=== PATIENT | female | born 1970 | race Caucasian/White ===

== ENCOUNTER 2018-08-20 03:38 | Inpatient (IN) | payer BC, SELFPAY ==
[2018-08-20] VITALS (21 sets, daily range): BP systolic 109–134; BP diastolic 63–84; PULSE 67–98; RESP 15–21; TEMP 36.4–36.9; O2SAT 95–98; BMI 39.1; BMI 38.2
--- NOTE | 2018-08-20 03:47 | EKG12_ITS ---
Test Reason : CP Blood Pressure : / mmHG Vent. Rate : 076 BPM Atrial Rate : 076 BPM P-R Int : 182 ms QRS Dur : 086 ms QT Int : 370 ms P-R-T Axes : 072 058 007 degrees QTc Int : 416 ms Normal sinus rhythm with sinus arrhythmia Nonspecific ST and T wave abnormality Abnormal ECG Confirmed by AKI OLIVARES, KATE ([id number]), content editor ISRAEL JIMENEZ ([id number]) on 08/22/2018 4:15:46 PM Referred By: RU Confirmed By:KATE PRABHAKAR MD
--- NOTE | 2018-08-20 03:47 | RAD_ITS ---
STUDY: X-RAY CHEST REASON FOR EXAM: Female, 48 years old. Chest pain TECHNIQUE: Single AP portable view of the chest. COMPARISON: None. FINDINGS: The lungs are clear and expanded. There is no demonstrated pleural abnormality. Normal size heart. Normal mediastinum and dulce. Normal visualized pulmonary arteries. Normal visualized aortic arch and descending thoracic aorta. Normal visualized thoracic spine. Normal visualized ribs, clavicles, and shoulders. There is no demonstrated abnormality of the visualized soft tissue structures of the upper abdomen. RAD/Chest 1 View (Portable) IMPRESSION: Normal x-ray examination of the chest. Electronically Signed: Darren Dorsey, at 4:12 EDT Tel , Service support ,
[2018-08-20] MEDS: Ipratropium/Albuterol Sulfate 3 ML AMPUL.NEB INHALATION (03:49)
[2018-08-20] MEDS: 0.9% Normal Saline 1,000 ML 150 ML IV (03:57)
[2018-08-20] MEDS: Aspirin 81 MG TAB.CHEW 324 MG PO (04:09)
[2018-08-20 04:12] LABS: Absolute Lymphocyte Count 2.71 X10^3/ul (0.83-4.51); Absolute Neutrophil Count 8.3 X10^3/uL (2.0-7.7); Basophil# 0.03 X10^3/uL; Basophil% 0.3 % (0-1); Eosinophil# 0.09 X10^3/uL; Eosinophils% 0.8 % (0-5); Hematocrit 47.1 % (37-47); Hemoglobin 16.6 g/dl (12.0-15.0); Lymphocyte # 2.71 X10^3/ul (4.0); Lymphocyte % 22.6 % (19-41); Mean Corp Hgb Conc 35.2 g/gl (32-36); Mean Corpuscular Volume 90.8 fL (81-99); Mean Platelet Vol. 10.6 fl (6.2-12.0); Monocyte# 0.78 X10^3/uL; Monocyte% 6.5 % (0-10); Neutrophil # 8.32 X10^3/uL (2.7-7.7); Neutrophil % 69.5 % (47-70); Platelet Count 335 K/mm3 (150-450); RBC Distribution Width CV 13.1 % (11.6-14.6); RBC Distribution Width SD 43.5 fl (35.1-43.9); Red Blood Count 5.19 M/mm3 (4.2-5.4)
[2018-08-20 04:13] LABS: POSITIVE COUNT NO; POSITIVE DIFFERENTIAL NO; POSITIVE MORPHOLOGY NO
[2018-08-20 04:30] LABS: Anion Gap 9 (5-15); BUN 10 mg/dL (7-18); BUN/Creat Ratio 12.5 RATIO (10-20); Calcium,Total 9.2 mg/dL (8.5-10.1); Chloride 107 mmol/L (98-107); EST Glomerular Filtration Rate 82 mL/min (>60); Est Glom Filt Rate - Afr Amer 99 mL/min (>60); Estimated Creatinine Clearance 71.14 ml/min; Glucose 199 mg/dL (74-106); Potassium 3.8 mmol/L (3.5-5.1); Sodium Level 140 mmol/L (136-145)
--- NOTE | 2018-08-20 04:41 | HP.PCM_ITS ---
Problem List (1) Chest pain Status: Acute History of Present Illness Date of Admission: 08/20/18 Chief Complaint: chest pain The patient is a 48 year old F with a significant history of prediabetes; thyroid nodule status post right thyroidectomy; hypothyroidism; peptic ulcer disease; GERD who presented to the emergency department with chest pain that started few hours before her admission. Patient could not sleep because of the chest pain. She describes her chest pain as a burning sensation and tightness at her mid sternum. The pain radiates to the back of her bilateral arms; where she has numbness.. Patient took some Gas-X at home which helped improved her chest pain. Her chest pain improves with leaning forward and worsens with lying on her back. About 2 weeks ago her was sick with what appeared to be URI. Patient reported that 3 days ago she developed stuffy nose; difficulty swallowing and sore throat. Also she had a dry cough and a fever with temperature of 101. He talked with on telemedicine and she was prescribed 14 days of Augmentin. Patient reports having a chemical stress test in 2011 At the emergency department her troponin was unremarkable. However her EKG showed ST depression in anterior lateral leads that was new compared to EKG on 2012. Because of the EKG abnormality decision was made to admit patient. Past Medical History Past Medical History (Chronic Problems): Chronic Problems Prediabetes (Chronic) Hypothyroidism (Chronic) Allergies acetaminophen [From Vicodin] Adverse Reaction (Verified 08/20/18 03:46) Nausea hydrocodone [From Vicodin] Adverse Reaction (Verified 08/20/18 03:46) Nausea Home Medications: Ambulatory Orders Medication Instructions Recorded Levothyroxine [Synthroid] 125 mcg PO MOTUWETHFRSA 01/21/16 Simvastatin [Zocor] 20 mg PO QHS 01/21/16 Amoxicillin/Potassium Clav [Amox 1 each PO BID 08/20/18 Tr-K Clv 875-125 mg Tab] Fluticasone 0.05% [Flonase Nasal 1 spray NASAL DAILY 08/20/18 [place]] Ranitidine [Zantac] 150 mg PO DAILY 08/20/18 busPIRone [Buspar] 5 mg PO TID 08/20/18 Surgical History: appendectomy, hysterectomy, - - Partial thyroidectomy. Initially she had a right oophorectomy; and later hysterectomy with left oophorectomy. Lives: Spouse/ Significant Other Smoking Status: Current every day smoker Tobacco Use: Cigarettes - *Family History Paternal Family History: Family History (Last Updated 08/20/18 @ 06:04 by Masoud Tapia MD) Mother M?ni?re's disease Father Chronic kidney disease Congestive heart failure (CHF) Diabetes Review of Systems Constitutional: Denies: Chills, Fever, Weight Change HEENT: Reports: Nasal Congestion, Sore Throat. Denies: Head Aches, Sinus Congestion, Sinus Drainage Cardiovascular: Reports: Chest Pain. Denies: Palpitations Respiratory: Reports: Cough - Dry cough, Shortness of Breath. Denies: Sputum production Gastrointestinal: Denies: Abdominal Pain, Nausea, Vomiting Genitourinary: Denies: Dysuria Musculoskeletal: Denies: Joint Pain, Joint Tenderness Skin: Denies: Rash, Wounds Neurological: Reports: Difficulty swallowing, Numbness - bilateral arms. Denies: Focal weakness, Tingling Psychiatric: Denies: Anxiety, Depression, Homicidal Ideations, Suicidal Ideations Hematologic/ Lymphatic: Denies: Easy Bruising, Easy Bleeding VTE Information - Inpt Only VTE Present on Admission: Yes VTE Mechan Device Prophylaxis: None VTE Pharm Prophylaxis ordered?: Yes Patient Problems: Active and Suspected Problems Chest pain (Acute) - Physical Exam General: Alert, Oriented x3, Cooperative HEENT: Atraumatic, PERRLA, EOMI, Normocephalic Neck: Supple, No JVD, Negative Carotid Bruits Lungs: Clear to auscultation, Normal air movement Cardiovascular: Regular rate, No murmurs, - - Patient reported improvement in chest pain upon leaning forward; and worsening chest pain upon lying back. Abdomen: Bowel Sounds Present, Soft, Non Tender Extremities: No edema, Capillary Refill Less than 3 Seconds Skin: No rashes, No breakdown Musculoskeletal: No Tenderness to Palpation of Joints or Extremities Neurological: Neuro grossly intact Psych/Mental Status: Normal Affect, Appropriate Vital Signs Temp Pulse Resp BP Pulse Ox 97.9 F 98 18 118/77 98 08/20/18 04:09 08/20/18 04:09 08/20/18 04:09 08/20/18 04:09 08/20/18 04:09 Oxygen Delivery Method Room Air Weight: 100.2 kg Body Mass Index (BMI) 39.1 Laboratory Tests Past 24 Hrs 08/20/18 08/20/18 04:00 04:00 WBC 12.0 H RBC 5.19 Hgb 16.6 H Hct 47.1 H MCV 90.8 MCH 32.0 MCHC 35.2 RDW 13.1 RDW Differential 43.5 Plt Count 335 MPV 10.6 Immature Gran % (Auto) 0.300 Neut % (Auto) 69.5 Lymph % (Auto) 22.6 [place] % (Auto) 6.5 Eos % (Auto) 0.8 Baso % (Auto) 0.3 Absolute Neuts (auto) 8.3 H Absolute Lymphs (auto) 2.71 Total Counted Not Reportable Sodium 140 Potassium 3.8 Chloride 107 Carbon Dioxide 24.0 Anion Gap 9 BUN 10 Creatinine 0.80 Estim Creat Clear Calc 71.14 Est GFR (MDRD) Af Amer 99 Est GFR (MDRD) Non-Af 82 BUN/Creatinine Ratio 12.5 Glucose 199 H Calcium 9.2 Troponin I < 0.015 Assessment/Plan All Active Problems Chest pain (Acute) Lower GI bleed (Acute) Pancolitis (Acute) The patient is a 48 year old F with a significant history of prediabetes; thyroid nodule status post right thyroidectomy; hypothyroidism; peptic ulcer disease; GERD with chest pain that changes with positioning ; URI symptoms but with abnormal EKG consistent with probable pericarditis or pleurisy accentuated by GERD . Chest pain Likely pericarditis or pleurisy RUY score for unstable angina/non-STEMI is 2 points (severe angina more or equal to 2 episodes in 24 hours, EKG ST changes >= 0.5 mm) Heart score of 4 points (nonspecific repolarization disturbance; age 45-64;>= risk factors including obesity; hyperlipidemia and smoking);moderate score. Admit to a monitored bed on PCU CXR independently reviewed confirms no acute cardiopulmonary process. EKG independently reviewed confirms subtle ST depression in anterolateral leads. Old records reviewed showed normal sinus rhythm with no T wave or ST abnormality on EKG in 2011 Received aspirin 325 mg x 1 at the emergency department . Received 1 tablet of sublingual nitroglycerin at emergency department. GI cocktail x1 ordered. SL NTG 0.4 mg prn as needed for chest pain Morphine as needed for pain We will check lipid panel. Serial cardiac enzymes Stat EKG as needed for chest pain Dobutamine Stress Echo in the AM if the cardiac enzymes are negative URI Likely viral. However patient was started on Augmentin at home. She has a 23 more doses of Augmentin to take. Augmentin continued. Flonase continued GERD Reportedly she was taking Protonix but because of insurance issue her medication was switched to Zantac. However patient thinks that her Zantac is ineffective. Protonix ordered. Anxiety disorder Buspirone continued Hypothyroidism Synthroid continued Hyperlipidemia Zocor continued Tobacco abuse Counselled. Nicotine patch ordered DVT prophylaxis Subcutaneous lovenox Code Visit OBSV E&M: 16218 Initial observation care L3
--- NOTE | 2018-08-20 04:43 | ED.DCSUM_ITS ---
- ER Visit Summary Date of Service: 08/20/18 Chief Complaint: [Chest pain and shortness of breath] History of Present Illness: The patient is a 48 F [as the emergency department with upper respiratory symptoms that started 4 days ago. Patient states that she started with a cough and some sinus congestion initially. Then she developed a sore throat. She was seen at a telemedicine facility and was prescribed amoxicillin 3 days ago. This evening she woke up with chest tightness and feeling very short of breath. Patient states that when she coughs her arms go numb. She denies recent travel or surgery. She has had fever at home up to 101. Patient states that her is also been sick for couple weeks. Cough is been mostly nonproductive.] Physical Examination: [HEENT-PERRLA, EOMI. Cranial nerves II through XII grossly intact. TMs clear. Mucous membranes moist. No adenopathy. Cardiovascular-regular rate and rhythm without murmur or ectopy Lungs-aeration bilaterally. Patient has some faint expiratory wheezes bilaterally. No accessory muscle use or retractions. Abdomen-normoactive bowel sounds, soft, nontender, no rebound or rigidity, no peritoneal signs. Extremities-intact ?4, normal range of motion, normal pulses, atraumatic] Test Results: [EKG on arrival showed a sinus rhythm with a ventricular rate of 76 bpm with some subtle ST depression in the anterior lateral leads. When compared with prior EKG from 2012 these changes are new. CBC with differential showed a slightly elevated white count of 12.0, hemoglobin 16, hematocrit 47, platelets 335. Chemistries unremarkable. Troponin was less than 0.015. Chest x-ray showed nothing acute.] Emergency Department Course and Treatment: [Patient initially was given aspirin and a DuoNeb aerosol. Patient was ordered sublingual nitro tablets.] Treatment Plan: [Case will be discussed with hospitalist evaluate patient for admission. Patient has abnormal EKG and complaint of chest tightness and shortness of breath. Although I suspect she likely has an upper respiratory infection as well cannot rule out cardiac etiology for her chest tightness and shortness of breath.] Disposition: [Admit] Impression: [Chest pain-rule out acute coronary syndrome URI] This note was generated with [email or web address] dictation software. It may contain incorrect words, spelling, and punctuation that were not noted in review of the chart prior to signing ED Disposition - Plan for ED Patient: Referrals: Fabian Smith MD [Primary Care Provider] -
[2018-08-20] MEDS: Nitroglycerin SL (ED/IMG/CATH) 0.4 MG TABLET SUBLINGUAL ×2 (05:04→05:10)
[2018-08-20] MEDS: Mag Hydrox/Al Hydrox/Simeth 30 ML UDC PO (05:39)
--- NOTE | 2018-08-20 06:18 | EKG12_ITS ---
Test Reason : AM EKG Blood Pressure : / mmHG Vent. Rate : 070 BPM Atrial Rate : 070 BPM P-R Int : 192 ms QRS Dur : 084 ms QT Int : 420 ms P-R-T Axes : 072 048 014 degrees QTc Int : 453 ms Normal sinus rhythm Normal ECG When compared with ECG of 21-AUG-2018 04:59, MANUAL COMPARISON REQUIRED, DATA IS UNCONFIRMED Confirmed by JAYY OLIVARES, BOB ([id number]), editorial cartoonist BELL YAN ([id number]) on 08/23/2018 11:16:28 AM Referred By: MONTSERRAT Confirmed By:BOB HOPE MD
[2018-08-20] MEDS: busPIRone 5 MG Tablet PO ×3 (06:59→21:30)
[2018-08-20] MEDS: Levothyroxine 125 MCG Tablet PO (06:59)
[2018-08-20 08:05] LABS: Cholesterol 174 mg/dL (200); High Density Lipoprotein 37 mg/dL; Triglycerides 162 mg/dL; Very Low Density Lipoprotein 32 mg/dL (5-40)
[2018-08-20] MEDS: Enoxaparin 40 MG/0.4 ML Syringe SC (09:46)
[2018-08-20] MEDS: Amox/Clavulanate 875 MG Tablet PO ×2 (09:46→16:27)
[2018-08-20] MEDS: Pantoprazole Sodium 40 MG Tablet PO (09:46)
[2018-08-20] MEDS: Fluticasone 0.05% 1 SPRAY NASAL.SRY NASAL (09:47)
--- NOTE | 2018-08-20 10:05 | PCM.PROGNOTE ---
<Benjy Rangel - Last Filed: 08/20/18 10:05> Patient Problems: Active and Suspected Problems Chest pain (Acute) Abnormal cardiac enzyme level (Acute) Angina pectoris (Acute) Subjective: Patient admitted this AM about 4am after presenting with chest pain described as a whole chest tightness with associated SOB and numbness of the left arm. This was relieved with nitro in the ER. She denies a personal hx of heart disease. Her father had diabetes, heart disease, and kidney failure. She has half siblings who all have heart disease as well. She has smoked for the past 30 yeras - 1 PPD. She reports a hx of prediabetes, however blood sugar was elevated here to 199. 2nd troponin was elevated. She has never seen a pile operator. She had a stress test years ago when she had her hysterectomy, no issues at that time. - Physical Exam General: Alert, Oriented x3, Cooperative HEENT: Atraumatic, PERRLA, EOMI, Normocephalic Neck: Supple, No JVD, Negative Carotid Bruits Lungs: Clear to auscultation, Normal air movement Cardiovascular: Regular rate, No murmurs Abdomen: Bowel Sounds Present, Soft, Non Tender Extremities: No edema, Capillary Refill Less than 3 Seconds Skin: No rashes, No breakdown Musculoskeletal: No Tenderness to Palpation of Joints or Extremities Neurological: Cranial nerves II-XII grossly intact Psych/Mental Status: Normal Affect, Appropriate, Alert and oriented to time, place, person, mood and affect Vital Signs Temp Pulse Resp BP Pulse Ox 98.3 F 75 16 128/66 H 98 08/20/18 09:44 08/20/18 09:44 08/20/18 09:44 08/20/18 09:44 08/20/18 09:44 Oxygen Delivery Method Room Air Weight: 215 lb 13.321 oz Body Mass Index (BMI) 38.2 Laboratory Tests Past 24 Hrs 08/20/18 08/20/18 08/20/18 04:00 04:00 07:15 WBC 12.0 H RBC 5.19 Hgb 16.6 H Hct 47.1 H MCV 90.8 MCH 32.0 MCHC 35.2 RDW 13.1 RDW Differential 43.5 Plt Count 335 MPV 10.6 Immature Gran % (Auto) 0.300 Neut % (Auto) 69.5 Lymph % (Auto) 22.6 [place] % (Auto) 6.5 Eos % (Auto) 0.8 Baso % (Auto) 0.3 Absolute Neuts (auto) 8.3 H Absolute Lymphs (auto) 2.71 Total Counted Not Reportable Sodium 140 Potassium 3.8 Chloride 107 Carbon Dioxide 24.0 Anion Gap 9 BUN 10 Creatinine 0.80 Estim Creat Clear Calc 71.14 Est GFR (MDRD) Af Amer 99 Est GFR (MDRD) Non-Af 82 BUN/Creatinine Ratio 12.5 Glucose 199 H Calcium 9.2 Troponin I < 0.015 Triglycerides 162 Cholesterol 174 LDL Cholesterol 105 VLDL Cholesterol 32 HDL Cholesterol 37 L 08/20/18 07:15 WBC RBC Hgb Hct MCV MCH MCHC RDW RDW Differential Plt Count MPV Immature Gran % (Auto) Neut % (Auto) Lymph % (Auto) [place] % (Auto) Eos % (Auto) Baso % (Auto) Absolute Neuts (auto) Absolute Lymphs (auto) Total Counted Sodium Potassium Chloride Carbon Dioxide Anion Gap BUN Creatinine Estim Creat Clear Calc Est GFR (MDRD) Af Amer Est GFR (MDRD) Non-Af BUN/Creatinine Ratio Glucose Calcium Troponin I 0.233 H Triglycerides Cholesterol LDL Cholesterol VLDL Cholesterol HDL Cholesterol Medical Necessity - Tobacco Use Smoking Status: Current every day smoker Tobacco Use: Cigarettes Assessment/Plan All Active Problems Chest pain (Acute) Abnormal cardiac enzyme level (Acute) Angina pectoris (Acute) Lower GI bleed (Acute) Pancolitis (Acute) 1. Chest pain with indeterminate troponin - first EKG had slight ST depression in V4, otherwise normal. 2nd EKG no acute changes. Chest pain was midsternal tightness with SOB and left arm numbness. Tele: no issues so far. Other risk factors: + Family hx, + smoking hx, hx HLD, + diabetes hx (pre), hx obesity. Cardiology consult is pending. 2. Prediabetes with obesity - blood sugar 199, likely progressed to diabetes, check a1c. Would benefit from the initiation of antidiabetic agent regardless especially given high risk for cardiac issues. Dietary consult 3. Nicotine abuse - 1ppd x 30 years. Patch if desired. 4. Recent URI - on augmentin 5. Hypothyroidism - synthroid, check tsh 6. Hx GERD, ulcers - continue protonix 7. HLD - statin 9. Anxiety - buspar DVT ppx: lovenox This patient was seen by Benjy Claire PA-C under the supervision of Dr. Verma. <Andrew Verma - Last Filed: 08/20/18 13:39> Subjective: chest pain improved. had had it intermittently. - Physical Exam General: Alert, Cooperative HEENT: Atraumatic, Normocephalic Neck: No Nodes, Thyroid Normal Size and Texture Lungs: Clear to auscultation, Normal air movement, No rhonchi, No wheeze Cardiovascular: Regular rate, Regular Rhythm, Normal S1, Normal S2, No murmurs Extremities: No edema, No Calf Tenderness Skin: No rashes, No breakdown Psych/Mental Status: Normal Affect, Appropriate Vital Signs Temp Pulse Resp BP Pulse Ox 36.8 C 75 16 128/66 H 98 08/20/18 09:44 08/20/18 09:44 08/20/18 09:44 08/20/18 09:44 08/20/18 09:44 Oxygen Delivery Method Room Air Weight: 97.9 kg Body Mass Index (BMI) 38.2 Intake and Output for Last 24 Hours 08/18/18 08/19/18 08/20/18 23:59 23:59 23:59 Intake Total 75 / 75 Balance 75 / 75 Laboratory Tests Past 24 Hrs 08/20/18 08/20/18 08/20/18 04:00 04:00 07:15 WBC 12.0 H RBC 5.19 Hgb 16.6 H Hct 47.1 H MCV 90.8 MCH 32.0 MCHC 35.2 RDW 13.1 RDW Differential 43.5 Plt Count 335 MPV 10.6 Immature Gran % (Auto) 0.300 Neut % (Auto) 69.5 Lymph % (Auto) 22.6 [place] % (Auto) 6.5 Eos % (Auto) 0.8 Baso % (Auto) 0.3 Absolute Neuts (auto) 8.3 H Absolute Lymphs (auto) 2.71 Total Counted Not Reportable Sodium 140 Potassium 3.8 Chloride 107 Carbon Dioxide 24.0 Anion Gap 9 BUN 10 Creatinine 0.80 Estim Creat Clear Calc 71.14 Est GFR (MDRD) Af Amer 99 Est GFR (MDRD) Non-Af 82 BUN/Creatinine Ratio 12.5 Glucose 199 H Hemoglobin A1c Calcium 9.2 Troponin I < 0.015 Triglycerides 162 Cholesterol 174 LDL Cholesterol 105 VLDL Cholesterol 32 HDL Cholesterol 37 L TSH 08/20/18 08/20/18 08/20/18 07:15 07:15 07:15 WBC RBC Hgb Hct MCV MCH MCHC RDW RDW Differential Plt Count MPV Immature Gran % (Auto) Neut % (Auto) Lymph % (Auto) [place] % (Auto) Eos % (Auto) Baso % (Auto) Absolute Neuts (auto) Absolute Lymphs (auto) Total Counted Sodium Potassium Chloride Carbon Dioxide Anion Gap BUN Creatinine Estim Creat Clear Calc Est GFR (MDRD) Af Amer Est GFR (MDRD) Non-Af BUN/Creatinine Ratio Glucose Hemoglobin A1c 7.3 H Calcium Troponin I 0.233 H Triglycerides Cholesterol LDL Cholesterol VLDL Cholesterol HDL Cholesterol TSH 0.86 Assessment/Plan Patient seen and examined independently. Data reviewed. I agree with the above note by the physician sales office assistant. 1. Chest pain Slightly elevated troponins, will continue to cycle Initial concern for pericarditis but no EKGs findings consistent with that. Cardiology on consult Potential left heart catheterization on the . Continue aspirin, statin, clopidogrel, metoprolol Code Visit Inpatient E&M: 61970 Subs Hosp L2
--- NOTE | 2018-08-20 10:15 | PN_ITS ---
<Benjy Rangel - Last Filed: 08/20/18 10:05> Patient Problems: Active and Suspected Problems Chest pain (Acute) Abnormal cardiac enzyme level (Acute) Angina pectoris (Acute) Subjective: Patient admitted this AM about 4am after presenting with chest pain described as a whole chest tightness with associated SOB and numbness of the left arm. This was relieved with nitro in the ER. She denies a personal hx of heart disease. Her father had diabetes, heart disease, and kidney failure. She has half siblings who all have heart disease as well. She has smoked for the past 30 yeras - 1 PPD. She reports a hx of prediabetes, however blood sugar was elevated here to 199. 2nd troponin was elevated. She has never seen a enamel cracker. She had a stress test years ago when she had her hysterectomy, no issues at that time. - Physical Exam General: Alert, Oriented x3, Cooperative HEENT: Atraumatic, PERRLA, EOMI, Normocephalic Neck: Supple, No JVD, Negative Carotid Bruits Lungs: Clear to auscultation, Normal air movement Cardiovascular: Regular rate, No murmurs Abdomen: Bowel Sounds Present, Soft, Non Tender Extremities: No edema, Capillary Refill Less than 3 Seconds Skin: No rashes, No breakdown Musculoskeletal: No Tenderness to Palpation of Joints or Extremities Neurological: Cranial nerves II-XII grossly intact Psych/Mental Status: Normal Affect, Appropriate, Alert and oriented to time, place, person, mood and affect Vital Signs Temp Pulse Resp BP Pulse Ox 98.3 F 75 16 128/66 H 98 08/20/18 09:44 08/20/18 09:44 08/20/18 09:44 08/20/18 09:44 08/20/18 09:44 Oxygen Delivery Method Room Air Weight: 215 lb 13.321 oz Body Mass Index (BMI) 38.2 Laboratory Tests Past 24 Hrs 08/20/18 08/20/18 08/20/18 04:00 04:00 07:15 WBC 12.0 H RBC 5.19 Hgb 16.6 H Hct 47.1 H MCV 90.8 MCH 32.0 MCHC 35.2 RDW 13.1 RDW Differential 43.5 Plt Count 335 MPV 10.6 Immature Gran % (Auto) 0.300 Neut % (Auto) 69.5 Lymph % (Auto) 22.6 [place] % (Auto) 6.5 Eos % (Auto) 0.8 Baso % (Auto) 0.3 Absolute Neuts (auto) 8.3 H Absolute Lymphs (auto) 2.71 Total Counted Not Reportable Sodium 140 Potassium 3.8 Chloride 107 Carbon Dioxide 24.0 Anion Gap 9 BUN 10 Creatinine 0.80 Estim Creat Clear Calc 71.14 Est GFR (MDRD) Af Amer 99 Est GFR (MDRD) Non-Af 82 BUN/Creatinine Ratio 12.5 Glucose 199 H Calcium 9.2 Troponin I < 0.015 Triglycerides 162 Cholesterol 174 LDL Cholesterol 105 VLDL Cholesterol 32 HDL Cholesterol 37 L 08/20/18 07:15 WBC RBC Hgb Hct MCV MCH MCHC RDW RDW Differential Plt Count MPV Immature Gran % (Auto) Neut % (Auto) Lymph % (Auto) [place] % (Auto) Eos % (Auto) Baso % (Auto) Absolute Neuts (auto) Absolute Lymphs (auto) Total Counted Sodium Potassium Chloride Carbon Dioxide Anion Gap BUN Creatinine Estim Creat Clear Calc Est GFR (MDRD) Af Amer Est GFR (MDRD) Non-Af BUN/Creatinine Ratio Glucose Calcium Troponin I 0.233 H Triglycerides Cholesterol LDL Cholesterol VLDL Cholesterol HDL Cholesterol Medical Necessity - Tobacco Use Smoking Status: Current every day smoker Tobacco Use: Cigarettes Assessment/Plan All Active Problems Chest pain (Acute) Abnormal cardiac enzyme level (Acute) Angina pectoris (Acute) Lower GI bleed (Acute) Pancolitis (Acute) 1. Chest pain with indeterminate troponin - first EKG had slight ST depression in V4, otherwise normal. 2nd EKG no acute changes. Chest pain was midsternal tightness with SOB and left arm numbness. Tele: no issues so far. Other risk factors: + Family hx, + smoking hx, hx HLD, + diabetes hx (pre), hx obesity. Cardiology consult is pending. 2. Prediabetes with obesity - blood sugar 199, likely progressed to diabetes, check a1c. Would benefit from the initiation of antidiabetic agent regardless especially given high risk for cardiac issues. Dietary consult 3. Nicotine abuse - 1ppd x 30 years. Patch if desired. 4. Recent URI - on augmentin 5. Hypothyroidism - synthroid, check tsh 6. Hx GERD, ulcers - continue protonix 7. HLD - statin 9. Anxiety - buspar DVT ppx: lovenox This patient was seen by Benjy Claire PA-C under the supervision of Dr. Verma. <Andrew Verma - Last Filed: 08/20/18 13:39> Subjective: chest pain improved. had had it intermittently. - Physical Exam General: Alert, Cooperative HEENT: Atraumatic, Normocephalic Neck: No Nodes, Thyroid Normal Size and Texture Lungs: Clear to auscultation, Normal air movement, No rhonchi, No wheeze Cardiovascular: Regular rate, Regular Rhythm, Normal S1, Normal S2, No murmurs Extremities: No edema, No Calf Tenderness Skin: No rashes, No breakdown Psych/Mental Status: Normal Affect, Appropriate Vital Signs Temp Pulse Resp BP Pulse Ox 36.8 C 75 16 128/66 H 98 08/20/18 09:44 08/20/18 09:44 08/20/18 09:44 08/20/18 09:44 08/20/18 09:44 Oxygen Delivery Method Room Air Weight: 97.9 kg Body Mass Index (BMI) 38.2 Intake and Output for Last 24 Hours 08/18/18 08/19/18 08/20/18 23:59 23:59 23:59 Intake Total 75 / 75 Balance 75 / 75 Laboratory Tests Past 24 Hrs 08/20/18 08/20/18 08/20/18 04:00 04:00 07:15 WBC 12.0 H RBC 5.19 Hgb 16.6 H Hct 47.1 H MCV 90.8 MCH 32.0 MCHC 35.2 RDW 13.1 RDW Differential 43.5 Plt Count 335 MPV 10.6 Immature Gran % (Auto) 0.300 Neut % (Auto) 69.5 Lymph % (Auto) 22.6 [place] % (Auto) 6.5 Eos % (Auto) 0.8 Baso % (Auto) 0.3 Absolute Neuts (auto) 8.3 H Absolute Lymphs (auto) 2.71 Total Counted Not Reportable Sodium 140 Potassium 3.8 Chloride 107 Carbon Dioxide 24.0 Anion Gap 9 BUN 10 Creatinine 0.80 Estim Creat Clear Calc 71.14 Est GFR (MDRD) Af Amer 99 Est GFR (MDRD) Non-Af 82 BUN/Creatinine Ratio 12.5 Glucose 199 H Hemoglobin A1c Calcium 9.2 Troponin I < 0.015 Triglycerides 162 Cholesterol 174 LDL Cholesterol 105 VLDL Cholesterol 32 HDL Cholesterol 37 L TSH 08/20/18 08/20/18 08/20/18 07:15 07:15 07:15 WBC RBC Hgb Hct MCV MCH MCHC RDW RDW Differential Plt Count MPV Immature Gran % (Auto) Neut % (Auto) Lymph % (Auto) [place] % (Auto) Eos % (Auto) Baso % (Auto) Absolute Neuts (auto) Absolute Lymphs (auto) Total Counted Sodium Potassium Chloride Carbon Dioxide Anion Gap BUN Creatinine Estim Creat Clear Calc Est GFR (MDRD) Af Amer Est GFR (MDRD) Non-Af BUN/Creatinine Ratio Glucose Hemoglobin A1c 7.3 H Calcium Troponin I 0.233 H Triglycerides Cholesterol LDL Cholesterol VLDL Cholesterol HDL Cholesterol TSH 0.86 Assessment/Plan Patient seen and examined independently. Data reviewed. I agree with the above note by the physician executive marketing assistant. 1. Chest pain * Slightly elevated troponins, will continue to cycle * Initial concern for pericarditis but no EKGs findings consistent with that. * Cardiology on consult * Potential left heart catheterization on the . * Continue aspirin, statin, clopidogrel, metoprolol Code Visit Inpatient E&M: 18232 Subs Hosp L2
[2018-08-20 11:05] LABS: Hemoglobin A1c 7.3 % (4.2-6.3)
[2018-08-20 11:38] LABS: Thyroid Stim Hormone (TSH) 0.86 uIU/mL (0.358-3.74)
--- NOTE | 2018-08-20 11:42 | ECHOD_ITS ---
Reason For Study: CHEST PAIN Procedure This was a 2D Doppler, Color Flow transthoracic echocardiogram. The exam was of adequate technical quality. Exam performed portable in patient room. Left Ventricle Normal LV size. Left ventricular systolic function is normal. The estimated ejection fraction is 60 %. No evidence for diastolic dysfunction. No regional wall motion abnormalities noted. Right Ventricle Normal RV size. Normal systolic function. Atria Normal left atrium. Normal right atrium. Lipomatous hypertrophy of the atrial septum. No doppler evidence for ASD. Mitral Valve There is no mitral annular calcification. Mild diffuse mitral valve thickening. Trivial mitral valve insufficiency. Tricuspid Valve Normal tricuspid valve. Trivial tricuspid valve insufficiency. Right ventricular systolic pressure estimated to be 15 mmHg. Aortic Valve Trisinus/trileaflet aortic valve. Normal aortic valve. Pulmonic Valve The pulmonic valve is not well visualized. Great Vessels Normal sized aortic root. Pericardium/Pleural No pericardial effusion. MMode/2D Measurements & Calculations LVIDd: 4.4 cm IVSd: 0.90 cm Ao root diam: 2.7 cm LVIDs: 3.0 cm LVPWd: 0.95 cm RVDd: 3.3 cm FS: 33.0 % LAV(MOD-bp): 46.9 ml LVAd ap4: 26.9 cm2 SV(MOD-sp4): 41.1 ml LAV(MOD-bp) Indexed: 23.5 ml/m2 EDV(MOD-sp4): 71.0 ml LAV(MOD-sp2): 39.4 ml EDV(sp4-el): 73.3 ml LAV(MOD-sp4): 47.1 ml LVAs ap4: 14.8 cm2 ESV(MOD-sp4): 29.9 ml ESV(sp4-el): 29.9 ml EF(MOD-sp4): 57.9 % EF(sp4-el): 59.2 % SV(sp4-el): 43.4 ml LA A4 area: 17.4 cm2 LA dimension(2D): 3.6 cm RA A4 area: 13.3 cm2 Time Measurements MV dec time: 0.18 sec Doppler Measurements & Calculations MV E max brad: 106.1 cm/sec Lat Peak E' Brad: 11.9 cm/sec Med Peak E' Brad: 12.5 cm/sec MV A max brad: 56.7 cm/sec E/E' lat: 8.9 E/E' med: 8.5 MV E/A: 1.9 Ao V2 max: 123.2 cm/sec LV V1 max: 99.1 cm/sec PA V2 max: 85.4 cm/sec Ao max P.1 mmHg LV V1 max P.9 mmHg TR max brad: 169.6 cm/sec TR max P.5 mmHg Interpretation Summary Left ventricular systolic function is normal. The estimated ejection fraction is 60 %. Lipomatous hypertrophy of the atrial septum. Mild diffuse mitral valve thickening. Trivial mitral valve insufficiency. Trivial tricuspid valve insufficiency. Right ventricular systolic pressure estimated to be 15 mmHg. No evidence for diastolic dysfunction. Ordering Physician: Isiah Eldridge Referring Physician: STACY BOJORQUEZ Performed By: Dede Goel, NINACS, RVT
--- NOTE | 2018-08-20 12:40 | CON.PCM_ITS ---
Problem List (1) Abnormal cardiac enzyme level Status: Acute (2) Angina pectoris Status: Acute (3) HLD (hyperlipidemia) Status: Chronic Qualifiers: Hyperlipidemia type: unspecified Qualified Code(s): E78.5 - Hyperlipidemia, unspecified (4) Prediabetes Status: Chronic (5) Hypothyroidism Status: Chronic Reason for Consult Date of Consultation: 08/20/18 History of Present Illness: The patient is a 48 year old white female with a past medical history of hyperlipidemia, prediabetes , hypothyroidism, who presents for evaluation of chest pain concerning for angina pectoris and subsequent findings of abnormal cardiac enzyme levels. The patient states that she was having chest discomfort at home which she describes as a chest tightness/pressure sensation radiating across her upper chest as well as involving both upper extremities. She felt somewhat short of breath and dyspneic and may have been somewhat nauseated. She states that she is supposed hysterectomy she has hot flashes and thus she was unsure whether she was experiencing a hot flash or actually being somewhat diaphoretic. She notes because of feeling somewhat short of breath and dyspneic she subsequently took a hot shower to see if that would open up her airways . However she states that did not help in the discomfort which had waxed and waned returned. She was then brought to the emergency department for further evaluation. She states she was treated with aspirin and nitroglycerin sublingual therapy. She has felt better since that time. During her evaluation she had an initial troponin I level which was negative. However her second troponin I level is now indeterminate. Her initial ECG demonstrated sinus rhythm with nonspecific ST/T wave changes. Her repeat ECG status post therapy has demonstrated improvement. She denies any history of orthopnea or PND or peripheral pitting edema. There has been no near syncope or syncope. She states she underwent a pharmacologic stress nuclear imaging study approximately 7 years ago and in the around the time of her hysterectomy surgery. To the best of her knowledge it was unremarkable and she required no further evaluation and/or care. [] Past Medical History Allergies/Adverse Reactions: Allergies acetaminophen [From Vicodin] Adverse Reaction (Verified 08/20/18 03:46) Nausea hydrocodone [From Vicodin] Adverse Reaction (Verified 08/20/18 03:46) Nausea Home Medications: Ambulatory Orders Medication Instructions Recorded Levothyroxine [Synthroid] 125 mcg PO [id number] 01/21/16 Simvastatin [Zocor] 20 mg PO QHS 01/21/16 Amoxicillin/Potassium Clav [Amox 1 each PO BID 08/20/18 Tr-K Clv 875-125 mg Tab] Fluticasone 0.05% [Flonase Nasal 1 spray NASAL DAILY 08/20/18 [place]] Ranitidine [Zantac] 150 mg PO DAILY 08/20/18 busPIRone [Buspar] 5 mg PO TID 08/20/18 Past Medical History (Chronic Problems): Chronic Problems HLD (hyperlipidemia) (Chronic) Prediabetes (Chronic) Hypothyroidism (Chronic) Surgical History: appendectomy, hysterectomy, - - Partial thyroidectomy. Initially she had a right oophorectomy; and later hysterectomy with left oophorectomy. - *Family History Paternal Family History: Family History (Last Updated 08/20/18 @ 06:04 by Masoud Tapia MD) Mother M?ni?re's disease Father Chronic kidney disease Congestive heart failure (CHF) Diabetes History Items: No pertinent history - No family history of colon cancer in first-degree family relative Lives: Spouse/ Significant Other Smoking Status: Current every day smoker Tobacco Use: Cigarettes Alcohol: None Drugs: None Review of Systems - Review of Systems General: Denies: Fever, Night Sweats, Fatigue Cardiovascular: Reports: Chest Discomfort, Chest Discomfort at Rest, Shortness of Breath, Shortness of Breath at Rest. Denies: Orthopnea, PND, Peripheral Edema, Palpitations, Lightheadedness, Dizziness, Near Syncope, Syncope Respiratory: Reports: Cough, Shortness of Breath. Denies: Hemoptysis Gastrointestinal: Reports: Nausea. Denies: Hematemesis, Hematochezia, Melena Genitourinary: Denies: Dysuria, Hematuria Skin: Denies: Rash Subjectve: This is a 48-year-old overweight white female who appears to be resting comfortably at the moment in no acute distress. Objective: Vital Signs Temp Pulse Resp BP Pulse Ox 98.3 F 75 16 128/66 H 98 08/20/18 09:44 08/20/18 09:44 08/20/18 09:44 08/20/18 09:44 08/20/18 09:44 Oxygen Delivery Method Room Air Weight: 215 lb 13.321 oz Body Mass Index (BMI) 38.2 Intake and Output for Last 24 Hours 08/18/18 08/19/18 08/20/18 23:59 23:59 23:59 Intake Total 75 / 75 Balance 75 / 75 General: Awake, Alert, Oriented x 3, Cooperative, No Acute Distress, Ill Appearing, Obese HEENT: Atraumatic, Normocephalic, PERRL, EOMI, Sclera Non Icteric Oral: Moist Mucosa Neck: Supple, Good ROM, No JVD Lungs: Clear to auscultation Cardiovascular: Regular Rhythm, Normal S1, Normal S2 Vascular: No Carotid Bruits Abdomen: Bowel Sounds Present, Soft, Non Tender Extremities: No Cyanosis, No Clubbing, No edema Neurological: No Focal Motor or Sensory Deficit Psych/Mental Status: Appropriate 08/20/18 04:00: WBC 12.0 H, RBC 5.19, Hgb 16.6 H, Hct 47.1 H, MCV 90.8, MCH 32.0, MCHC 35.2, RDW 13.1, RDW Differential 43.5, Plt Count 335, MPV 10.6, Immature Gran % (Auto) 0.300, Neut % (Auto) 69.5, Lymph % (Auto) 22.6, [place] % (Auto) 6.5, Eos % (Auto) 0.8, Baso % (Auto) 0.3, Absolute Neuts (auto) 8.3 H, Total Counted Not Reportable 08/20/18 04:00: Sodium 140, Potassium 3.8, Chloride 107, Carbon Dioxide 24.0, Anion Gap 9, BUN 10, Creatinine 0.80, Est GFR (MDRD) Af Amer 99, Est GFR (MDRD) Non-Af 82, BUN/Creatinine Ratio 12.5, Glucose 199 H, Calcium 9.2, Troponin I < 0.015 08/20/18 07:15: Triglycerides 162, Cholesterol 174, LDL Cholesterol 105, VLDL Cholesterol 32, HDL Cholesterol 37 L 08/20/18 07:15: Troponin I 0.233 H 08/20/18 07:15: Hemoglobin A1c 7.3 H Rhythm: Sinus rhythm EKG: Sinus rhythm; nonspecific ST and T wave abnormality CXR: Preliminary evaluation: No acute cardiopulmonary disease process appreciated: Please see official report Assessment/Plan 1. Chest pain/angina pectoris The patient does have symptoms concerning for angina pectoris. She has cardiovascular risk factors which has included hyperlipidemia, prediabe javon mellitus , positive tobacco history, and positive family history. Her initial cardiac enzymes have elevated and her troponin I level is now indeterminate. She did have initial ECG changes which appear improved. At the present time she will continue to be monitored for any obvious changes in her clinical course. She will continue with cardiac telemetry monitoring, ECG follow-up, and cardiac enzyme follow-up. She will continue medical management for concerns of underlying CAD. This will include medical therapy with aspirin, antiplatelets, nitrates as needed, beta- blockers, and anticoagulant therapy. We will continue noninvasive evaluation with echocardiographic study. This will be to evaluate her left ventricular wall motion and overall systolic function. Based upon her clinical scenario and objective findings as far she should be considered for further evaluation with diagnostic cardiac catheterization. The procedure and risks were discussed with her. She was agreeable to this approach. 2. Abnormal cardiac enzymes She does have abnormal cardiac enzymes. Her cardiac enzymes will be followed. Her ECG will be followed. However, based upon the information above, she will continue medical therapy and plans for further cardiac evaluation both noninvasively and invasively. 3. Hyperlipidemia She will continue risk factor evaluation and care. 4. Prediabetes She readily admits she has not been monitoring her glucose levels. She is going to be evaluated by dietary/nutritional services. She will need continued evaluation care by her primary care physicians. 5. Hypothyroidism She will continue evaluation care by her primary care physicians. Comment: The patient's case was discussed and reviewed with the patient and the [facility] staff. This note was generated with [employer] dictation software. It may contain incorrect words, spelling, and punctuation that were not noted in checking the note before signing.
--- NOTE | 2018-08-20 13:54 | CM.UR ---
Heart Cath planned for Wednesday. Checked her [place] plan under her HNI prefix. In-network hospitals include (but not limited to): [facility] If any questions, please contact case management.
[2018-08-20] MEDS: Clopidogrel Bisulfate 300 MG Tablet PO (14:16)
[2018-08-20] MEDS: Metoprolol Tartrate 25 MG Tablet PO ×2 (14:16→21:31)
--- NOTE | 2018-08-20 14:41 | CM.UR ---
RN CM Assessment Met face to face with patient for initial transition planning/care coordination assessment. Introduced myself and my role. Verb understanding and agreement for assessment. Presentation: Chest pain PCP: Luis--wants to find a new PCP. Gave list of PCPs. Specialists: Dr. Cervantes (endo) in [place]. Dr. Soliman (master esthetician). Preferred Pharmacy: [facility] in [place] Insurance: [employer] Prescription Benefit: yes LNOK: Roger Home: Mobile home with 1 step ADLs: Independent Transportation: self DME: CPAP. Uses boarding [employer] for cpap and supplies. SNF/HHC: None Passport/waiver tankerman: none Advance Directives: None, declined booklet, further education. DC PLAN: Home, no needs anticipated. Amado Christine RN, CCM.
[2018-08-20] MEDS: Nitroglycerin Oint 1 INCH PACKET TRANSDERM. ×2 (16:00→18:21)
[2018-08-20 16:20] LABS: Bedside Glucose 120 mg/dL (70-110)
[2018-08-20] MEDS: Enoxaparin 100 MG/ML Syringe 90 MG SC (18:21)
[2018-08-20] MEDS: Morphine 2 MG/ML Syringe IV (19:52)
[2018-08-20] MEDS: 0.9% NaCl Peripheral Flush Adult/Peds IV ×2 (19:52→20:03)
[2018-08-20] MEDS: Ondansetron 4 MG/2 ML Vial IV (20:03)
[2018-08-20] MEDS: Atorvastatin Calcium 40 MG Tablet PO (21:30)
[2018-08-20] MEDS: Insulin Lispro 100 UNIT/ML INSULN.PEN SC (21:31)
[2018-08-20 21:41] LABS: Bedside Glucose 153 mg/dL (70-110)
[2018-08-20] MEDS: Zolpidem Tartrate 5 MG Tablet PO (22:22)
[2018-08-21] VITALS (16 sets, daily range): BP systolic 106–129; BP diastolic 64–80; PULSE 70–89; RESP 16–20; TEMP 36.1–36.9; O2SAT 92–98
[2018-08-21] MEDS: Nitroglycerin Oint 1 INCH PACKET TRANSDERM. (00:05)
[2018-08-21] MEDS: Morphine 2 MG/ML Syringe IV ×3 (00:06→19:58)
[2018-08-21] MEDS: 0.9% NaCl Peripheral Flush Adult/Peds IV ×3 (00:06→19:58)
[2018-08-21] MEDS: Ondansetron 4 MG/2 ML Vial IV (04:29)
[2018-08-21 05:41] LABS: Absolute Lymphocyte Count 3.25 X10^3/ul (0.83-4.51); Absolute Neutrophil Count 8.9 X10^3/uL (2.0-7.7); Basophil# 0.04 X10^3/uL; Basophil% 0.3 % (0-1); Eosinophil# 0.07 X10^3/uL; Eosinophils% 0.5 % (0-5); Hematocrit 45.6 % (37-47); Hemoglobin 15.3 g/dl (12.0-15.0); Lymphocyte # 3.25 X10^3/ul (4.0); Lymphocyte % 24.9 % (19-41); Mean Corp Hgb Conc 33.6 g/gl (32-36); Mean Corpuscular Hgb 30.7 pg (27.0-32.0); Mean Corpuscular Volume 91.4 fL (81-99); Monocyte# 0.77 X10^3/uL; Monocyte% 5.9 % (0-10); Neutrophil # 8.85 X10^3/uL (2.7-7.7); Platelet Count 339 K/mm3 (150-450); RBC Distribution Width CV 13.1 % (11.6-14.6); RBC Distribution Width SD 43.2 fl (35.1-43.9); Red Blood Count 4.99 M/mm3 (4.2-5.4)
[2018-08-21 05:46] LABS: POSITIVE COUNT NO; POSITIVE DIFFERENTIAL NO; POSITIVE MORPHOLOGY NO
[2018-08-21 05:48] LABS: Anion Gap 7 (5-15); BUN 9 mg/dL (7-18); BUN/Creat Ratio 12.3 RATIO (10-20); Calcium,Total 9.1 mg/dL (8.5-10.1); Chloride 106 mmol/L (98-107); Creatinine, Serum 0.73 mg/dL (0.55-1.02); EST Glomerular Filtration Rate 90 mL/min (>60); Est Glom Filt Rate - Afr Amer 109 mL/min (>60); Estimated Creatinine Clearance 77.96 ml/min; Glucose 191 mg/dL (74-106); Potassium 4.1 mmol/L (3.5-5.1); Sodium Level 139 mmol/L (136-145)
[2018-08-21] MEDS: busPIRone 5 MG Tablet PO ×3 (05:52→21:12)
[2018-08-21] MEDS: Enoxaparin 100 MG/ML Syringe 90 MG SC ×2 (05:53→17:51)
--- NOTE | 2018-08-21 05:55 | EKG12_ITS ---
Test Reason : AM EKG Blood Pressure : / mmHG Vent. Rate : 075 BPM Atrial Rate : 075 BPM P-R Int : 194 ms QRS Dur : 088 ms QT Int : 398 ms P-R-T Axes : 070 057 021 degrees QTc Int : 444 ms Normal sinus rhythm Normal ECG When compared with ECG of 20-AUG-2018 07:30, MANUAL COMPARISON REQUIRED, DATA IS UNCONFIRMED Confirmed by JAYY OLIVARES, BOB ([id number]), food editor BELL YAN ([id number]) on 08/23/2018 11:19:05 AM Referred By: CHELLY Confirmed By:BOB HOPE MD
[2018-08-21] MEDS: Insulin Lispro 100 UNIT/ML INSULN.PEN SC ×3 (06:53→21:14)
[2018-08-21 07:25] LABS: Bedside Glucose 187 mg/dL (70-110)
[2018-08-21] MEDS: Aspirin 81 MG TAB.CHEW PO (09:07)
[2018-08-21] MEDS: Fluticasone 0.05% 1 SPRAY NASAL.SRY NASAL (09:07)
[2018-08-21] MEDS: Amox/Clavulanate 875 MG Tablet PO (09:07)
[2018-08-21] MEDS: Metoprolol Tartrate 25 MG Tablet PO ×2 (09:08→13:09)
[2018-08-21] MEDS: Clopidogrel Bisulfate 75 MG Tablet PO (09:10)
[2018-08-21] MEDS: Pantoprazole Sodium 40 MG Tablet PO (09:10)
[2018-08-21 11:30] LABS: Bedside Glucose 190 mg/dL (70-110)
--- NOTE | 2018-08-21 12:13 | PN.CARD_ITS ---
Subjectve: The patient states that she did have some residual chest discomfort. She was treated with nitroglycerin paste. She states that her chest discomfort abated. However she had a headache and thus her nitroglycerin paste was discontinued. At the moment she denies ongoing chest discomfort or difficulty breathing. There has been no episodes of nausea or emesis. She appears to been resting comfortably. Objective: Vital Signs Temp Pulse Resp BP Pulse Ox 97.4 F L 83 16 124/73 H 95 08/21/18 09:04 08/21/18 09:08 08/21/18 09:04 08/21/18 09:08 08/21/18 09:04 Oxygen Delivery Method Room Air Weight: 215 lb 13.321 oz Body Mass Index (BMI) 38.2 Intake and Output for Last 24 Hours 08/19/18 08/20/18 08/21/18 23:59 23:59 23:59 Intake Total 555 / 555 1450 / 1450 Balance 555 / 555 1450 / 1450 General: Awake, Alert, Oriented x 3, Cooperative, No Acute Distress, Obese HEENT: Atraumatic, Normocephalic, PERRL, EOMI, Sclera Non Icteric Oral: Moist Mucosa Neck: Supple, Good ROM, No JVD Lungs: Clear to auscultation Cardiovascular: Regular Rhythm, Normal S1, Normal S2 Abdomen: Bowel Sounds Present, Soft, Non Tender Extremities: No edema Neurological: No Focal Motor or Sensory Deficit Psych/Mental Status: Appropriate 08/20/18 14:41: Troponin I 1.190 H* 08/20/18 18:00: Troponin I 1.930 H* 08/20/18 20:50: Troponin I 1.810 H* 08/20/18 23:40: Troponin I 1.220 H* 08/21/18 04:50: WBC 13.0 H, RBC 4.99, Hgb 15.3 H, Hct 45.6, MCV 91.4, MCH 30.7, MCHC 33.6, RDW 13.1, RDW Differential 43.2, Plt Count 339, MPV 11.0, Immature Gran % (Auto) 0.400, Neut % (Auto) 68.0, Lymph % (Auto) 24.9, [place] % (Auto) 5.9, Eos % (Auto) 0.5, Baso % (Auto) 0.3, Absolute Neuts (auto) 8.9 H, Total Counted Not Reportable 08/21/18 04:50: Sodium 139, Potassium 4.1, Chloride 106, Carbon Dioxide 26.0, Anion Gap 7, BUN 9, Creatinine 0.73, Est GFR (MDRD) Af Amer 109, Est GFR (MDRD) Non-Af 90, BUN/Creatinine Ratio 12.3, Glucose 191 H, Calcium 9.1 Rhythm: Sinus rhythm EKG: Sinus rhythm; nonspecific T wave abnormality-lateral ECHO: 08-20-18 Interpretation Summary Left ventricular systolic function is normal. The estimated ejection fraction is 60 %. Lipomatous hypertrophy of the atrial septum. Mild diffuse mitral valve thickening. Trivial mitral valve insufficiency. Trivial tricuspid valve insufficiency. Right ventricular systolic pressure estimated to be 15 mmHg. No evidence for diastolic dysfunction. Medical Necessity - Tobacco Use Smoking Status: Current every day smoker Tobacco Use: Cigarettes Assessment/Plan 1. Chest pain/angina pectoris The patient does have symptoms concerning for angina pectoris. She has cardiovascular risk factors which has included hyperlipidemia, prediabetes mellitus , positive tobacco history, and positive family history. Her initial cardiac enzymes have gone from indeterminate to positive to now decreasing. Her follow-up ECG demonstrates a nonspecific T wave abnormality. She will continue medical management for concerns of underlying CAD. This will include medical therapy with aspirin, antiplatelets, nitrates as needed, beta- blockers, and anticoagulant therapy. Her transthoracic echocardiogram is as noted above. Based upon her clinical scenario and objective findings as far she should be considered for further evaluation with diagnostic cardiac catheterization. The procedure and risks were discussed with her. She was agreeable to this approach. 2. Abnormal cardiac enzymes She does have abnormal cardiac enzymes. As noted above she will continue medical management and further evaluation with diagnostic cardiac catheterization. 3. Hyperlipidemia She will continue risk factor evaluation and care. 4. Prediabetes She readily admits she has not been monitoring her glucose levels. She is going to be evaluated by dietary/nutritional services. She will need continued evaluation care by her primary care physicians. 5. Hypothyroidism She will continue evaluation care by her primary care physicians. Comment: The patient's case was discussed and reviewed with the patient and the [facility] staff. This note was generated with [employer] dictation software. It may contain incorrect words, spelling, and punctuation that were not noted in checking the note before signing.
[2018-08-21] MEDS: guaiFENesin 1,200 MG Tablet 1200 MG PO ×2 (13:09→21:12)
--- NOTE | 2018-08-21 14:56 | PCM.PROGNOTE ---
<Benjy Rangel - Last Filed: 08/21/18 14:56> Patient Problems: Active and Suspected Problems Chest pain (Acute) Abnormal cardiac enzyme level (Acute) Angina pectoris (Acute) Subjective: No issues overnight. No further chest pain, shortness breath, no palpitations, no lightheadedness, no dizziness, no lower extremity edema. Patient is agreeable to heart catheterization in the morning. - Physical Exam General: Alert, Oriented x3, Cooperative HEENT: Atraumatic, PERRLA, EOMI, Normocephalic Neck: Supple, No JVD, Negative Carotid Bruits Lungs: Clear to auscultation, Normal air movement Cardiovascular: Regular rate, No murmurs Abdomen: Bowel Sounds Present, Soft, Non Tender, Obese Extremities: No edema, Capillary Refill Less than 3 Seconds Skin: No rashes, No breakdown Musculoskeletal: No Tenderness to Palpation of Joints or Extremities Neurological: Cranial nerves II-XII grossly intact Psych/Mental Status: Normal Affect, Appropriate, Alert and oriented to time, place, person, mood and affect Vital Signs Temp Pulse Resp BP Pulse Ox 97.4 F L 78 16 124/73 H 95 08/21/18 09:04 08/21/18 13:09 08/21/18 09:04 08/21/18 09:08 08/21/18 09:04 Oxygen Delivery Method Room Air Weight: 215 lb 13.321 oz Body Mass Index (BMI) 38.2 Intake and Output for Last 24 Hours 08/19/18 08/20/18 08/21/18 23:59 23:59 23:59 Intake Total 555 / 555 1450 / 1450 Balance 555 / 555 1450 / 1450 Microbiology Past 72 Hours 08/21/18 10:35 Group A Streptococcus Rapid Screen - Preliminary Mucosa - Throat Laboratory Tests Past 24 Hrs 08/20/18 08/20/18 08/20/18 14:41 18:00 20:50 WBC RBC Hgb Hct MCV MCH MCHC RDW RDW Differential Plt Count MPV Immature Gran % (Auto) Neut % (Auto) Lymph % (Auto) [place] % (Auto) Eos % (Auto) Baso % (Auto) Absolute Neuts (auto) Absolute Lymphs (auto) Total Counted Sodium Potassium Chloride Carbon Dioxide Anion Gap BUN Creatinine Estim Creat Clear Calc Est GFR (MDRD) Af Amer Est GFR (MDRD) Non-Af BUN/Creatinine Ratio Glucose Calcium Troponin I 1.190 H* 1.930 H* 1.810 H* 08/20/18 08/21/18 08/21/18 23:40 04:50 04:50 WBC 13.0 H RBC 4.99 Hgb 15.3 H Hct 45.6 MCV 91.4 MCH 30.7 MCHC 33.6 RDW 13.1 RDW Differential 43.2 Plt Count 339 MPV 11.0 Immature Gran % (Auto) 0.400 Neut % (Auto) 68.0 Lymph % (Auto) 24.9 [place] % (Auto) 5.9 Eos % (Auto) 0.5 Baso % (Auto) 0.3 Absolute Neuts (auto) 8.9 H Absolute Lymphs (auto) 3.25 Total Counted Not Reportable Sodium 139 Potassium 4.1 Chloride 106 Carbon Dioxide 26.0 Anion Gap 7 BUN 9 Creatinine 0.73 Estim Creat Clear Calc 77.96 Est GFR (MDRD) Af Amer 109 Est GFR (MDRD) Non-Af 90 BUN/Creatinine Ratio 12.3 Glucose 191 H Calcium 9.1 Troponin I 1.220 H* POC Glucose 08/21/18 08/21/18 08/20/18 11:06 06:51 21:22 POC Glucose 190 H 187 H 153 H 08/20/18 16:10 POC Glucose 120 H Medical Necessity - Tobacco Use Smoking Status: Current every day smoker Tobacco Use: Cigarettes Assessment/Plan All Active Problems Chest pain (Acute) Abnormal cardiac enzyme level (Acute) Angina pectoris (Acute) Lower GI bleed (Acute) Pancolitis (Acute) 1. Non-STEMI, chest pain with indeterminate troponin - first EKG had slight ST depression in V4, otherwise normal. Follow-up EKGs with no acute issues. No events on telemetry overnight. Cardiology will be taking the patient for heart catheterization in the morning. 2. Type 2 diabetes with obesity -A1c was 7.3 consistent with type 2 diabetes. Sliding scale insulin added. Would benefit from the initiation of antidiabetic agent regardless especially given high risk for cardiac issues. Dietary consult 3. Nicotine abuse - 1ppd x 30 years. Patch if desired. 4. Recent URI-diagnosed with sinusitis- on augmentin. Reports sore throat, swollen lymph nodes. Strep test was negative. Continue Augmentin for total of 7 days. 5. Hypothyroidism - synthroid, TSH normal 6. Hx GERD, ulcers - continue protonix 7. HLD - statin 9. Anxiety - buspar DVT ppx: lovenox This patient was seen by Benjy Rangel PA-C under the supervision of Dr. Verma. <Andrew Verma - Last Filed: 08/21/18 15:06> Subjective: Still with intermittent midsternal chest pain. NTG patch gave her a severe headache that resolved when it was removed. - Physical Exam General: Alert, Cooperative HEENT: Atraumatic, Normocephalic Lungs: Clear to auscultation, Normal air movement, No rhonchi, No wheeze Cardiovascular: Regular rate, No murmurs Abdomen: Bowel Sounds Present, Soft, Non Tender Skin: No rashes, No breakdown Psych/Mental Status: Normal Affect, Appropriate Vital Signs Temp Pulse Resp BP Pulse Ox 36.4 C L 78 16 114/73 98 08/21/18 15:00 08/21/18 15:00 08/21/18 15:00 08/21/18 15:00 08/21/18 15:00 Oxygen Delivery Method Room Air Weight: 97.9 kg Body Mass Index (BMI) 38.2 Intake and Output for Last 24 Hours 08/19/18 08/20/18 08/21/18 23:59 23:59 23:59 Intake Total 555 / 555 1450 / 1450 Balance 555 / 555 1450 / 1450 Microbiology Past 72 Hours 08/21/18 10:35 Group A Streptococcus Rapid Screen - Preliminary Mucosa - Throat Laboratory Tests Past 24 Hrs 08/20/18 08/20/18 08/20/18 14:41 18:00 20:50 WBC RBC Hgb Hct MCV MCH MCHC RDW RDW Differential Plt Count MPV Immature Gran % (Auto) Neut % (Auto) Lymph % (Auto) [place] % (Auto) Eos % (Auto) Baso % (Auto) Absolute Neuts (auto) Absolute Lymphs (auto) Total Counted Sodium Potassium Chloride Carbon Dioxide Anion Gap BUN Creatinine Estim Creat Clear Calc Est GFR (MDRD) Af Amer Est GFR (MDRD) Non-Af BUN/Creatinine Ratio Glucose Calcium Troponin I 1.190 H* 1.930 H* 1.810 H* 08/20/18 08/21/18 08/21/18 23:40 04:50 04:50 WBC 13.0 H RBC 4.99 Hgb 15.3 H Hct 45.6 MCV 91.4 MCH 30.7 MCHC 33.6 RDW 13.1 RDW Differential 43.2 Plt Count 339 MPV 11.0 Immature Gran % (Auto) 0.400 Neut % (Auto) 68.0 Lymph % (Auto) 24.9 [place] % (Auto) 5.9 Eos % (Auto) 0.5 Baso % (Auto) 0.3 Absolute Neuts (auto) 8.9 H Absolute Lymphs (auto) 3.25 Total Counted Not Reportable Sodium 139 Potassium 4.1 Chloride 106 Carbon Dioxide 26.0 Anion Gap 7 BUN 9 Creatinine 0.73 Estim Creat Clear Calc 77.96 Est GFR (MDRD) Af Amer 109 Est GFR (MDRD) Non-Af 90 BUN/Creatinine Ratio 12.3 Glucose 191 H Calcium 9.1 Troponin I 1.220 H* POC Glucose 08/21/18 08/21/18 08/20/18 11:06 06:51 21:22 POC Glucose 190 H 187 H 153 H 08/20/18 16:10 POC Glucose 120 H Assessment/Plan Patient seen and examined independently. Data reviewed. I agree with the above note by the physician social research assistant. 1. NSTEMI clinically improved troponins peaked at 1.93 Initial concern for pericarditis but no EKGs findings consistent with that. Cardiology on consult Potential left heart catheterization on the . Continue aspirin, statin, clopidogrel, metoprolol, therapeutic enoxaparin Code Visit Inpatient E&M: 80494 Subs Hosp L2
--- NOTE | 2018-08-21 14:59 | PN_ITS ---
<Benjy Rangel - Last Filed: 08/21/18 14:56> Patient Problems: Active and Suspected Problems Chest pain (Acute) Abnormal cardiac enzyme level (Acute) Angina pectoris (Acute) Subjective: No issues overnight. No further chest pain, shortness breath, no palpitations, no lightheadedness, no dizziness, no lower extremity edema. Patient is agreeable to heart catheterization in the morning. - Physical Exam General: Alert, Oriented x3, Cooperative HEENT: Atraumatic, PERRLA, EOMI, Normocephalic Neck: Supple, No JVD, Negative Carotid Bruits Lungs: Clear to auscultation, Normal air movement Cardiovascular: Regular rate, No murmurs Abdomen: Bowel Sounds Present, Soft, Non Tender, Obese Extremities: No edema, Capillary Refill Less than 3 Seconds Skin: No rashes, No breakdown Musculoskeletal: No Tenderness to Palpation of Joints or Extremities Neurological: Cranial nerves II-XII grossly intact Psych/Mental Status: Normal Affect, Appropriate, Alert and oriented to time, place, person, mood and affect Vital Signs Temp Pulse Resp BP Pulse Ox 97.4 F L 78 16 124/73 H 95 08/21/18 09:04 08/21/18 13:09 08/21/18 09:04 08/21/18 09:08 08/21/18 09:04 Oxygen Delivery Method Room Air Weight: 215 lb 13.321 oz Body Mass Index (BMI) 38.2 Intake and Output for Last 24 Hours 08/19/18 08/20/18 08/21/18 23:59 23:59 23:59 Intake Total 555 / 555 1450 / 1450 Balance 555 / 555 1450 / 1450 Microbiology Past 72 Hours 08/21/18 10:35 Group A Streptococcus Rapid Screen - Preliminary Mucosa - Throat Laboratory Tests Past 24 Hrs 08/20/18 08/20/18 08/20/18 14:41 18:00 20:50 WBC RBC Hgb Hct MCV MCH MCHC RDW RDW Differential Plt Count MPV Immature Gran % (Auto) Neut % (Auto) Lymph % (Auto) [place] % (Auto) Eos % (Auto) Baso % (Auto) Absolute Neuts (auto) Absolute Lymphs (auto) Total Counted Sodium Potassium Chloride Carbon Dioxide Anion Gap BUN Creatinine Estim Creat Clear Calc Est GFR (MDRD) Af Amer Est GFR (MDRD) Non-Af BUN/Creatinine Ratio Glucose Calcium Troponin I 1.190 H* 1.930 H* 1.810 H* 08/20/18 08/21/18 08/21/18 23:40 04:50 04:50 WBC 13.0 H RBC 4.99 Hgb 15.3 H Hct 45.6 MCV 91.4 MCH 30.7 MCHC 33.6 RDW 13.1 RDW Differential 43.2 Plt Count 339 MPV 11.0 Immature Gran % (Auto) 0.400 Neut % (Auto) 68.0 Lymph % (Auto) 24.9 [place] % (Auto) 5.9 Eos % (Auto) 0.5 Baso % (Auto) 0.3 Absolute Neuts (auto) 8.9 H Absolute Lymphs (auto) 3.25 Total Counted Not Reportable Sodium 139 Potassium 4.1 Chloride 106 Carbon Dioxide 26.0 Anion Gap 7 BUN 9 Creatinine 0.73 Estim Creat Clear Calc 77.96 Est GFR (MDRD) Af Amer 109 Est GFR (MDRD) Non-Af 90 BUN/Creatinine Ratio 12.3 Glucose 191 H Calcium 9.1 Troponin I 1.220 H* POC Glucose 08/21/18 08/21/18 08/20/18 11:06 06:51 21:22 POC Glucose 190 H 187 H 153 H 08/20/18 16:10 POC Glucose 120 H Medical Necessity - Tobacco Use Smoking Status: Current every day smoker Tobacco Use: Cigarettes Assessment/Plan All Active Problems Chest pain (Acute) Abnormal cardiac enzyme level (Acute) Angina pectoris (Acute) Lower GI bleed (Acute) Pancolitis (Acute) 1. Non-STEMI, chest pain with indeterminate troponin - first EKG had slight ST depression in V4, otherwise normal. Follow-up EKGs with no acute issues. No events on telemetry overnight. Cardiology will be taking the patient for heart catheterization in the morning. 2. Type 2 diabetes with obesity -A1c was 7.3 consistent with type 2 diabetes. Sliding scale insulin added. Would benefit from the initiation of antidiabetic agent regardless especially given high risk for cardiac issues. Dietary consult 3. Nicotine abuse - 1ppd x 30 years. Patch if desired. 4. Recent URI-diagnosed with sinusitis- on augmentin. Reports sore throat, swollen lymph nodes. Strep test was negative. Continue Augmentin for total of 7 days. 5. Hypothyroidism - synthroid, TSH normal 6. Hx GERD, ulcers - continue protonix 7. HLD - statin 9. Anxiety - buspar DVT ppx: lovenox This patient was seen by Benjy Rangel PA-C under the supervision of Dr. Verma. <Andrew Verma - Last Filed: 08/21/18 15:06> Subjective: Still with intermittent midsternal chest pain. NTG patch gave her a severe headache that resolved when it was removed. - Physical Exam General: Alert, Cooperative HEENT: Atraumatic, Normocephalic Lungs: Clear to auscultation, Normal air movement, No rhonchi, No wheeze Cardiovascular: Regular rate, No murmurs Abdomen: Bowel Sounds Present, Soft, Non Tender Skin: No rashes, No breakdown Psych/Mental Status: Normal Affect, Appropriate Vital Signs Temp Pulse Resp BP Pulse Ox 36.4 C L 78 16 114/73 98 08/21/18 15:00 08/21/18 15:00 08/21/18 15:00 08/21/18 15:00 08/21/18 15:00 Oxygen Delivery Method Room Air Weight: 97.9 kg Body Mass Index (BMI) 38.2 Intake and Output for Last 24 Hours 08/19/18 08/20/18 08/21/18 23:59 23:59 23:59 Intake Total 555 / 555 1450 / 1450 Balance 555 / 555 1450 / 1450 Microbiology Past 72 Hours 08/21/18 10:35 Group A Streptococcus Rapid Screen - Preliminary Mucosa - Throat Laboratory Tests Past 24 Hrs 08/20/18 08/20/18 08/20/18 14:41 18:00 20:50 WBC RBC Hgb Hct MCV MCH MCHC RDW RDW Differential Plt Count MPV Immature Gran % (Auto) Neut % (Auto) Lymph % (Auto) [place] % (Auto) Eos % (Auto) Baso % (Auto) Absolute Neuts (auto) Absolute Lymphs (auto) Total Counted Sodium Potassium Chloride Carbon Dioxide Anion Gap BUN Creatinine Estim Creat Clear Calc Est GFR (MDRD) Af Amer Est GFR (MDRD) Non-Af BUN/Creatinine Ratio Glucose Calcium Troponin I 1.190 H* 1.930 H* 1.810 H* 08/20/18 08/21/18 08/21/18 23:40 04:50 04:50 WBC 13.0 H RBC 4.99 Hgb 15.3 H Hct 45.6 MCV 91.4 MCH 30.7 MCHC 33.6 RDW 13.1 RDW Differential 43.2 Plt Count 339 MPV 11.0 Immature Gran % (Auto) 0.400 Neut % (Auto) 68.0 Lymph % (Auto) 24.9 [place] % (Auto) 5.9 Eos % (Auto) 0.5 Baso % (Auto) 0.3 Absolute Neuts (auto) 8.9 H Absolute Lymphs (auto) 3.25 Total Counted Not Reportable Sodium 139 Potassium 4.1 Chloride 106 Carbon Dioxide 26.0 Anion Gap 7 BUN 9 Creatinine 0.73 Estim Creat Clear Calc 77.96 Est GFR (MDRD) Af Amer 109 Est GFR (MDRD) Non-Af 90 BUN/Creatinine Ratio 12.3 Glucose 191 H Calcium 9.1 Troponin I 1.220 H* POC Glucose 08/21/18 08/21/18 08/20/18 11:06 06:51 21:22 POC Glucose 190 H 187 H 153 H 08/20/18 16:10 POC Glucose 120 H Assessment/Plan Patient seen and examined independently. Data reviewed. I agree with the above note by the physician assistant center director. 1. NSTEMI * clinically improved * troponins peaked at 1.93 * Initial concern for pericarditis but no EKGs findings consistent with that. * Cardiology on consult * Potential left heart catheterization on the . * Continue aspirin, statin, clopidogrel, metoprolol, therapeutic enoxaparin Code Visit Inpatient E&M: [id number] Subs Hosp L2
[2018-08-21 16:30] LABS: Bedside Glucose 127 mg/dL (70-110)
[2018-08-21] MEDS: Atorvastatin Calcium 40 MG Tablet PO (21:13)
[2018-08-21] MEDS: Metoprolol Tartrate 50 MG Tablet PO (21:13)
[2018-08-21 21:25] LABS: Bedside Glucose 180 mg/dL (70-110)
[2018-08-21 22:11] LABS: Bacteria 0 SEEN /hpf (None Seen); Mucous, Urine 0 SEEN /hpf (<or=2+); Red Blood Cells-Urine 0 SEEN /hpf (0-5)
[2018-08-21 22:13] LABS: Color, Urine Yellow (Yellow); Glucose, Dipstick Normal (Normal); Ketone-Dipstick Negative (Negative); Leukocyte Esterase-Dipstick 500 /ul (Negative); Nitrite-Dipstick Negative (Negative); Occult Blood-Urine 10 /ul (Negative); Protein-Dipstick Negative (Negative); Urine Bilirubin Dipstick Negative (Negative); Urine Clarity Clear (Clear); Urine Urobilinogen Normal (Normal)
[2018-08-21 22:20] LABS: Squamous Epithelial Cells - UA 5-10 SEEN /hpf (5-10); White Blood Cells 5-10 SEEN /hpf (0-5)
[2018-08-22] VITALS (28 sets, daily range): BP systolic 96–141; BP diastolic 54–84; PULSE 57–89; RESP 12–23; TEMP 36.3–37.1; O2SAT 93–100
[2018-08-22 04:20] LABS: Absolute Lymphocyte Count 3.46 X10^3/ul (0.83-4.51); Absolute Neutrophil Count 5.2 X10^3/uL (2.0-7.7); Basophil# 0.03 X10^3/uL; Basophil% 0.3 % (0-1); Eosinophils% 1.1 % (0-5); Hematocrit 44.6 % (37-47); Hemoglobin 15.2 g/dl (12.0-15.0); Lymphocyte # 3.46 X10^3/ul (4.0); Lymphocyte % 36.5 % (19-41); Mean Corp Hgb Conc 34.1 g/gl (32-36); Mean Corpuscular Hgb 30.9 pg (27.0-32.0); Mean Corpuscular Volume 90.7 fL (81-99); Mean Platelet Vol. 10.7 fl (6.2-12.0); Monocyte# 0.63 X10^3/uL; Monocyte% 6.7 % (0-10); Neutrophil # 5.22 X10^3/uL (2.7-7.7); Neutrophil % 55.1 % (47-70); Platelet Count 311 K/mm3 (150-450); RBC Distribution Width CV 12.9 % (11.6-14.6); Red Blood Count 4.92 M/mm3 (4.2-5.4); White Blood Count 9.5 K/mm3 (4.4-11.0)
[2018-08-22 04:22] LABS: POSITIVE COUNT NO; POSITIVE DIFFERENTIAL NO; POSITIVE MORPHOLOGY NO
[2018-08-22 04:24] LABS: Partial Thromboplast Time 42.6 Seconds (24.1-36.2)
[2018-08-22 04:44] LABS: Anion Gap 8 (5-15); BUN 10 mg/dL (7-18); BUN/Creat Ratio 15.2 RATIO (10-20); Calcium,Total 8.8 mg/dL (8.5-10.1); Chloride 106 mmol/L (98-107); Creatinine, Serum 0.66 mg/dL (0.55-1.02); EST Glomerular Filtration Rate 102 mL/min (>60); Est Glom Filt Rate - Afr Amer 123 mL/min (>60); Estimated Creatinine Clearance 86.23 ml/min; Glucose 163 mg/dL (74-106); Potassium 3.8 mmol/L (3.5-5.1); Sodium Level 139 mmol/L (136-145)
--- NOTE | 2018-08-22 05:55 | EKG12_ITS ---
Test Reason : CP ADMISSION Blood Pressure : / mmHG Vent. Rate : 061 BPM Atrial Rate : 061 BPM P-R Int : 174 ms QRS Dur : 086 ms QT Int : 410 ms P-R-T Axes : 012 051 038 degrees QTc Int : 412 ms Normal sinus rhythm with sinus arrhythmia Nonspecific ST abnormality Abnormal ECG When compared with ECG of 20-AUG-2018 03:44, MANUAL COMPARISON REQUIRED, DATA IS UNCONFIRMED Confirmed by JAYY OLIVARES, BOB ([id number]), brands editor BELL YAN ([id number]) on 08/23/2018 11:21:15 AM Referred By: CHELLY Confirmed By:BOB HOPE MD
[2018-08-22] MEDS: Levothyroxine 125 MCG Tablet PO (06:16)
[2018-08-22] MEDS: Aspirin 81 MG TAB.CHEW PO (06:16)
[2018-08-22] MEDS: Clopidogrel Bisulfate 75 MG Tablet PO (06:16)
[2018-08-22] MEDS: busPIRone 5 MG Tablet PO ×3 (06:16→21:16)
[2018-08-22] MEDS: Metoprolol Tartrate 50 MG Tablet PO ×2 (06:16→21:16)
[2018-08-22] MEDS: 0.9% NaCl Peripheral Flush Adult/Peds IV ×5 (06:18→19:31)
--- NOTE | 2018-08-22 06:39 | NURSING ---
Report called to Samara in laboratory inspector; SENIOR QUALITY CONTROL TECHNICIAN made aware patient okay to go down at this time.
[2018-08-22 06:50] LABS: Bedside Glucose 127 mg/dL (70-110)
--- NOTE | 2018-08-22 08:03 | NURSING ---
Report called to receiving DENEEN Encinas in ICU. Daniel BROTHERS
--- NOTE | 2018-08-22 08:28 | CL.D_ITS ---
Patient Name: SUSANNAH HICKEY Study Date: 08/22/2018 Performing: Isiah Eldridge MD Ht: 62.99 inches 160 cm : 1970 Wt: 216.05 lbs 98 kg Age: 48 Gender: female BSA: 2 PROCEDURE(S) PERFORMED GM61-QVZ/COR/LV QM80-GMP W OR WO PTCA, SINGLE CORONARY ARTERY CLINICAL PROFILE AND INDICATIONS Indications: Suspected CAD, Other Heart Failure: None Stress/Imaging Stress/Image Study Performed: No Angina Classification Anginal Classification w/in 2 Weeks: CCS IV CAD Presentations: Non-STEMI. CONCLUSIONS Elevated Left Ventricular End Diastolic Pressure Normal LV size, wall motion,and systolic function LVEF: by LV gram 60 % [place] Multivessel CAD RECOMMENDATIONS Risk factor modification Medical therapy Referred for immediate PCI DESCRIPTION OF PROCEDURE The patient arrived to the procedure lab. The risks and benefits of the procedure as well as a full d escription of our services here and current unavailability of surgical backup were fully explained to the patient and/or their significant other prior to the catheterization. The Timeout was completed, verifying the correct patient and procedure. The patient's procedural site was prepped and draped in the usual fashion. Local anesthetic was given subcutaneously to right groin region with Lidocaine 2%. Using a modified Seldinger technique, arterial access was obtained via the right femoral artery, a 4 Fr sheath was inserted Left Coronary Artery selective angiography was performed in multiple views us ing a 4 Fr. JL5 catheter. Right Coronary Artery selective angiography was then performed in multiple views using a 4 Fr. 3DRC catheter. Left Ventriculography was performed in [place] projection using a 4 Fr . Pigtail catheter. LV to AO pullback pressures were then recorded. CORONARY ANGIOGRAPHY DOMINANCE: Right Dominant LEFT HEART ASSESSMENT Left Ventricular Ejection Fraction: by LV Gram 60 % Normal LV wall motion Elevated Left Ventricular End Diastolic Pressure LVEDP: 26 mmHg LEFT MAIN: Angiographically normal LEFT ANTERIOR DESCENDING ARTERY: Mild luminal irregularities DIAGONAL 1: Ostial - 25 % Stenosis CIRCUMFLEX ARTERY: Mild luminal irregularities OM 2: Mid - 85 % Stenosis RIGHT CORONARY ARTERY: Mild luminal irregularities MID RCA: 50 % Stenosis VALVE FINDINGS: Normal Aortic Valve function Normal Mitral Valve function AORTIC ROOT: Angiographically normal COMPLICATIONS No Complications PROCEDURE MEDICATIONS Versed 1 mg IV Versed 1 mg IV Versed 2 mg IV Oxygen: 2 L/min via nasal cannula Heparin 6000 unit(s) IV 08/22/2018 08:20:39 Nitro 200 mcg IC 08/22/2018 08:21:11 Nitro 200 mcg IC 08/22/2018 08:21:11 SUMMARY OF HEMODYNAMIC DATA Time AIR REST ECG 06:55:44 AO 120/79 (97) SA 07:20:24 LV 127/6, 26 07:25:49 LV 128/5, 26 07:25:56 LV 117/6, 25 07:26:53 LVp 117/5, 24 07:27:00 AOp 119/66 (89) 07:27:05 Signed By Isiah Eldridge MD On 08/22/2018 08:27:43 Isiah Eldridge MD
--- NOTE | 2018-08-22 08:55 | CL.I_ITS ---
Patient Name: SUSANNAH HICKEY Study Date: 08/22/2018 Performing: Huy Painter MD Ht: 62.99 inches 160 cm : 1970 Wt: 216.05 lbs 98 kg Age: 48 Gender: female BSA: 2 Amended PROCEDURE(S) PERFORMED [id number] W OR WO PTCA, SINGLE CORONARY ARTERY CLINICAL PROFILE AND CO-MORBIDITIES Indications: Suspected CAD, Other, ACS <= 24 hrs, New Onset Angina <= 2 months, Suspected CAD Heart Failure: None Stress/Imaging Stress/Image Study Performed: No Stress/Image Study Performed: No Angina Classification Anginal Classification w/in 2 Weeks: CCS IV CAD Presentations: Non-STEMI. Unstable angina. Non-STEMI. Symptom onset Date/Time: 08/21/2018 Time Not Available Comorbidities/Risk Factors: Current/Recent Smoker (< 1year) Hypertension Dyslipidemia CONCLUSIONS Successful PTCA/DIMPLE mid 2nd OM with a 2.5 x 38 Promus Synergy, post dilated in proximal 2/3 with a 3. 0 x 12 NC Ballloon; 85%-->0%, no dissection. Pt had identical CP symptoms during stent deployment. RECOMMENDATIONS Highly recommend quitting all tobacco products Follow up with primary foundation coordinator Risk factor modification ASA Indefinitley Plavix for at least 12 months Routine post interventional care Refer for Outpatient Cardiac Rehab Manual sheath removal per protocol Follow up with Dr. Eldridge Stress test in 1-2 weeks to eval RCA lesion. Attempted Mynx closure but did not deploy properly, so aborted and direct manual pressure held. DESCRIPTION OF PROCEDURE The patient arrived to the procedure lab. The risks and benefits of the procedure as well as a full d escription of our services here and current unavailability of surgical backup were fully explained to the patient and/or their significant other prior to the catheterization. The Timeout was completed, verifying the correct patient and procedure. The patient's procedural site was prepped and draped in the usual fashion. Local anesthetic was given subcutaneously to right groin region with Lidocaine 2% Using a modified Seldinger technique,arterial access was obtained via the right femoral artery, a 4Fr sheath was inserted Left Coronary Artery selective angiography was performed in multiple views using a 4 Fr. JL5 catheter. Right Coronary Artery selective angiography was then performed in multiple vie ws using a 4 Fr. 3DRC catheter. Left Ventriculography was performed in [place] projection using a 4 Fr. P igtail catheter. LV to AO pullback pressures were then recorded.The images were reviewed and options discussed. A decision was then made to proceed with an Intervention, IVUS or other adjunc t procedure. Arterial sheath was exchanged for a 6 Fr Sheath. 3.5 EBU Guide catheter was inserted and engaged into the LCA. BMW Guide wire was advanced to the 2nd om. 2x12 Emerge Balloon catheter was inserted. B alloon catheter was advanced across lesion in the 2nd OM, mid. PTCA balloon inflated at 6 atms for 10 secs. PTCA balloon inflated at 6 atms for 10 secs. PTCA balloon inflated at 8 atms for 14 secs. 2.5x 38 Synergy Drug Eluting stent was inserted. Drug Eluting stent was advanced across the lesion in the 2nd OM, mid. 3x12 NC Emerge Balloon catheter was inserted. Balloon catheter was inserted post stent. Contrast was injected through the sheath and the Right Iliac and Femoral artery were assessed for pos sible closure device. The arterial sheath was pulled and manual compression applied until hemostasis is achieved. INTERVENTION INFORMATION LESION SITE: 2nd OM (Mid) Lesion Complexity: High/C, lesion at bifurcation: No, thrombus present: No, lesion length: 38 mm, cul prit lesion: Yes Pre Stenosis: 85 % Pre intervention RUY flow: 3 PROCEDURE: Drug Eluting Stent with pre and post dilatation Post Stenosis: 0 % Post intervention RUY flow: 3 Lesion Devices: Medtronic 6 Fr EBU3.5 100cm Guide Catheter Romo .014 BMW [place] Straight 190cm Vladimir Sci Synergy MR DIMPLE 2.50x38 Vladimir Sci NC EMERGE MR 3.00x12 BALLOON Vladimir Sci EMERGE MR 2.00x12 BALLOON COMPLICATIONS No Complications PROCEDURE MEDICATIONS Versed 1 mg IV Versed 1 mg IV Versed 2 mg IV Fentanyl 25 mcg IV Oxygen: 2 L/min via nasal cannula Heparin 6000 unit(s) IV 08/22/2018 08:20:39 Nitro 200 mcg IC 08/22/2018 08:21:11 Nitro 200 mcg IC 08/22/2018 08:21:11 SUMMARY OF HEMODYNAMIC DATA Time AIR REST ECG 06:55:44 AO 120/79 (97) SA 07:20:24 LV 127/6, 26 07:25:49 LV 128/5, 26 07:25:56 LV 117/6, 25 07:26:53 LV 117/5, 24 07:27:00 AO 119/66 (89) 07:27:05 Signed By Huy Painter MD On 09/06/2018 08:56:45 Signed By Huy Painter MD On 08/22/2018 08:54:21 Huy Painter MD
--- NOTE | 2018-08-22 09:00 | PN.CARD_ITS ---
Subjectve: The patient has now undergone diagnostic cardiac catheterization. She was found to have angiographically significant CAD involving the LCx/OM distribution. She underwent PCI. She appears without any obvious adverse events. Objective: Vital Signs Temp Pulse Resp BP Pulse Ox 97.4 F L 75 16 112/71 98 08/22/18 06:05 08/22/18 06:16 08/22/18 06:05 08/22/18 06:16 08/22/18 06:05 Oxygen Delivery Method Room Air Weight: 215 lb 13.321 oz Body Mass Index (BMI) 38.2 Intake and Output for Last 24 Hours 08/20/18 08/21/18 08/22/18 23:59 23:59 23:59 Intake Total 555 / 555 1930 / 1930 600 / 600 Balance 555 / 555 1930 / 1930 600 / 600 General: Awake, Alert, Oriented x 3, Cooperative, No Acute Distress HEENT: Atraumatic, Normocephalic, PERRL, EOMI, Sclera Non Icteric Oral: Moist Mucosa Neck: Supple, Good ROM, No JVD Lungs: Clear to auscultation Cardiovascular: Regular Rhythm, Normal S1, Normal S2 Vascular: No Carotid Bruits, Normal Femoral Pulses Abdomen: Bowel Sounds Present, Soft, Non Tender Extremities: No Cyanosis, No Clubbing, No edema Neurological: No Focal Motor or Sensory Deficit Psych/Mental Status: Appropriate 08/21/18 21:35: Urine Color Yellow, Urine Clarity Clear, Urine pH 6.0, Ur Specific [place] 1.020, Urine Protein Negative, Urine Glucose (UA) Normal, Urine Ketones Negative, Urine Occult Blood 10 H, Urine Nitrite Negative, Urine Bilirubin Negative, Urine Urobilinogen Normal, Ur Leukocyte Esterase 500 H, Urine RBC 0 SEEN, Urine WBC 5-10 SEEN 08/22/18 04:00: WBC 9.5, RBC 4.92, Hgb 15.2 H, Hct 44.6, MCV 90.7, MCH 30.9, MCHC 34.1, RDW 12.9, RDW Differential 42.0, Plt Count 311, MPV 10.7, Immature Gran % (Auto) 0.300, Neut % (Auto) 55.1, Lymph % (Auto) 36.5, [place] % (Auto) 6.7, Eos % (Auto) 1.1, Baso % (Auto) 0.3, Absolute Neuts (auto) 5.2, Total Counted Not Reportable 08/22/18 04:00: PT 13.0, INR 1.0, APTT 42.6 H 08/22/18 04:00: Sodium 139, Potassium 3.8, Chloride 106, Carbon Dioxide 25.0, Anion Gap 8, BUN 10, Creatinine 0.66, Est GFR (MDRD) Af Amer 123, Est GFR (MDRD) Non-Af 102, BUN/Creatinine Ratio 15.2, Glucose 163 H, Calcium 8.8 Rhythm: Sinus rhythm EKG: Sinus rhythm Cardiac Cath: CORONARY ANGIOGRAPHY DOMINANCE: Right Dominant LEFT HEART ASSESSMENT Left Ventricular Ejection Fraction: by LV Gram 60 % Normal LV wall motion Elevated Left Ventricular End Diastolic Pressure LVEDP: 26 mmHg LEFT MAIN: Angiographically normal LEFT ANTERIOR DESCENDING ARTERY: Mild luminal irregularities DIAGONAL 1: Ostial - 25 % Stenosis CIRCUMFLEX ARTERY: Mild luminal irregularities OM 2: Mid - 85 % Stenosis RIGHT CORONARY ARTERY: Mild luminal irregularities MID RCA: 50 % Stenosis VALVE FINDINGS: Normal Aortic Valve function Normal Mitral Valve function AORTIC ROOT: Angiographically normal PCI: CONCLUSIONS Successful PTCA/DIMPLE mid LCX with a 2.5 x 38 Promus Synergy, post dilated in proximal 2/3 with a 3.0 x 12 NC [place]; 85%-->0%, no dissection. Pt had identical CP symptoms during stent deployment. Medical Necessity - Tobacco Use Smoking Status: Current every day smoker Tobacco Use: Cigarettes Assessment/Plan 1. NSTEMI The patient has undergone evaluation and care for a non-ST segment elevation [place]. This has included noninvasive studies including transthoracic echocardiogram as well as now invasive studies including diagnostic cardiac catheterization. The patient was found to have angiographically significant CAD in the LCx/OM distribution. She has subsequently undergone PCI. She will continue medical management. 2. CAD status post LCx/OM PCI The patient will continue medical therapy. She will be monitored in the ICU overnight. She will need continued future outpatient cardiovascular follow-up and cardiac rehabilitation therapy. 3. Hyperlipidemia She will continue risk factor evaluation and care. 4. Prediabetes She readily admits she has not been monitoring her glucose levels. She is going to be evaluated by dietary/nutritional services. She will need continued evaluation care by her primary care physicians. 5. Hypothyroidism She will continue evaluation care by her primary care physicians. Comment: The patient's case was discussed and reviewed with the patient and and her family members present. This note was generated with [employer] dictation software. It may contain incorrect words, spelling, and punctuation that were not noted in checking the note before signing.
--- NOTE | 2018-08-22 09:25 | EKG12_ITS ---
Test Reason : CP Blood Pressure : / mmHG Vent. Rate : 077 BPM Atrial Rate : 077 BPM P-R Int : 166 ms QRS Dur : 080 ms QT Int : 372 ms P-R-T Axes : -06 070 035 degrees QTc Int : 420 ms Normal sinus rhythm Low voltage QRS (Limb Leads) Confirmed by AKI OLIVARES, KATE ([id number]), metropolitan editor BELL YAN ([id number]) on 08/25/2018 1:42:09 PM Referred By: KAUSHIK SUNSHINE Confirmed By:KATE PRABHAKAR MD
--- NOTE | 2018-08-22 10:00 | EKG12_ITS ---
Test Reason : CP Blood Pressure : / mmHG Vent. Rate : 074 BPM Atrial Rate : 074 BPM P-R Int : 188 ms QRS Dur : 080 ms QT Int : 372 ms P-R-T Axes : 067 043 034 degrees QTc Int : 412 ms Normal sinus rhythm Normal ECG Confirmed by MCKENZIE SEWELL ([id number]), television news video editor BELL YAN ([id number]) on 09/01/2018 9:29:20 AM Referred By: JOLANTA Confirmed By:MCKENZIE SEWELL
[2018-08-22] MEDS: Morphine 2 MG/ML Syringe IV ×3 (11:42→19:29)
[2018-08-22] MEDS: Fluticasone 0.05% 1 SPRAY NASAL.SRY NASAL (11:46)
[2018-08-22 12:01] LABS: Bedside Glucose 145 mg/dL (70-110)
[2018-08-22 12:05] LABS: ACT Activated Clotting Time 219 sec (74-137)
[2018-08-22] MEDS: 0.9% Normal Saline 1,000 ML 150 ML IV (12:58)
--- NOTE | 2018-08-22 13:50 | CRPHASE1_ITS ---
Patient Communication PHII Cardiac Rehab Discussed with Patient:: Yes Guide to Cardiac Rehab Given to Patient:: Yes Cardiac Rehab Facility Choice List Given to Patient:: Yes Choice Program [facility] CR PHII:: Communication Given to CR, Refer to [facility] Electrical Lineworker:: H[facility] Painter Phase II Cardiac Rehab:: Yes Sessions:: 36 sessions - 3 days/wk, 12 weeks Risk Factors/Lifestyle Smoking Status: Current some day smoker Hx Hypertension: No Hx Diabetes Mellitus Type 1: No Hx Diabetes Mellitus Type 2: No Hx Metabolic Disorders: Yes Hx Dyslipidemia: Yes Hx Obesity: Yes Height: 5 ft 3 in - BMI 38.2 Post-Menopausal: No Stress: Home/Family Risk Factor for Sedentary Lifestyle: Moderate Risk Family History: Family History (Last Updated 08/20/18 @ 06:04 by Masoud Tapia MD) Mother M?ni?re's disease Father Chronic kidney disease Congestive heart failure (CHF) Diabetes Laboratory Values: Cardiac Rehab Phase I Labs Hemoglobin A1c 7.3 % (4.2-6.3) H 08/20/18 07:15 Triglycerides 162 mg/dL (-199) 08/20/18 07:15 Cholesterol 174 mg/dL (200) 08/20/18 07:15 LDL Cholesterol 105 mg/dL (0-130) 08/20/18 07:15 HDL Cholesterol 37 mg/dL (40-) L 08/20/18 07:15 Phase I Education Given On:: [place], Nutrition, Antiplatelet medication, Smoking cessation Issues Affecting Care:: None Knowledge of Condition:: Yes Learning Preferences: Verbal, Written Hospital Course Pain Description: Pressure Medical/Surgical History NC:: No CAD:: No Cardiomyopathy:: No Valve Disease/Replacement:: No COPD:: No Diabetes Type I:: No Diabetes Type II:: No Hypertension:: No Dyslipidemia:: Yes Thyroid:: Yes - HYPOTHYROID Discharge/Home/Social Eval Discharge Disposition: Home Cardiac Rehabilitation Info Cardiac Rehabilitation Program Information: Cardiac Rehabilitation is important for patients like you who are recovering from a heart problem. Cardiac rehabilitation programs are recognized as integral to the continued care of the patient with coronary heart disease. The cardiac rehabilitation program is designed to optimize a patient's physical, psychological, and social functioning. Health adult care manager work in cardiac rehabilitation programs and assist you with getting the treatments you need to get stronger and healthier - like exercise, healthy eating habits, and medications. Cardiac rehabilitation has been show to help people with heart problems live longer and have better life enjoyment than people who do not go to cardiac rehabilitation. Please contact the Cardiac Rehabilitation Program at [facility] at in two weeks if you have not heard from them.
--- NOTE | 2018-08-22 13:52 | CRPH1.INST_ITS ---
General Education CAD and cardiac anatomy and function:: Patient communicates acknowledgment Explanation of diagnoses and procedures:: Patient communicates acknowledgment Sign/Symptoms of PR:: Patient communicates acknowledgment Antiplatelet therapy: Patient communicates acknowledgment Proper use of NTG-SL: Not instructed Emergency procedures and activation of EMS: Patient communicates acknowledgment Compliance of all prescribed medications: Patient communicates acknowledgment Smoking Patient Nicotine/Smoking Risk Factors Are:: Cigarettes Recommendations Include:: Smoking cessation strategies/Smoking packet, Second- hand smoke recommendation, Participation in a smoking cessation program Nicotine/Smoking Response Code:: Patient communicates acknowledgment Dyslipidemia Patient Dyslipidemia Risk Factors Are:: Total Cholesterol, Triglycerides, HDL, LDL Recommendations Include:: Lipid profile not available, Reviewed NCEP/ATP guidelines, Therapeutic Lifestyle Change dietary guidelines Dyslipidemia Response Code:: Patient communicates acknowledgment Overweight/Obesity Patient Overweight/Obesity Risk Factors Are:: Obesity - > or = 30 Recommendations Include:: Weight loss of 5-10%, Reduced calorie diet, Exercise 5-7 times/week Overweight/Obesity:: Patient communicates acknowledgment Hypertension Patient Hypertension Risk Factors Are:: No documented hx of HTN Heart Disease Heart Disease Response Code:: Patient communicates acknowledgment Diabetes Patient Diabetes Risk Factors Are:: No documented hx of diabetes Metabolic Syndrome Patient Metabolic Syndrome Risk Factors Are [3 of 5]:: Waist circumference > 35 [female] or 40 [male], High triglyceride >150, Low HDL <40 [male] or < 50 [female] Recommendations Include:: Reinforce compliance to risk factor modifications, Encouraged follow-up with Primary Care Physician Metabolic Syndrome Response Code:: Patient communicates acknowledgment Sedentary Patient Sedentary Risk Factors Are:: Lack of regular exercise Recommendations Include:: Aerobic exercise 5-7 times/week for 20-30 minutes continuously, Benefits of regular exercise, Discussed home walking program, Monitored Outpatient Cardiac Rehab Sedentary Response Code:: Patient communicates acknowledgment Stress Recommendations Include:: Identification of stressors, and assessment of coping skills, Stress management techniques Stress Response Code:: Patient communicates acknowledgment
[2018-08-22] MEDS: Pantoprazole Sodium 40 MG Tablet PO (14:08)
[2018-08-22] MEDS: guaiFENesin 1,200 MG Tablet 1200 MG PO ×2 (14:08→21:16)
[2018-08-22] MEDS: Acetaminophen 325 MG Tablet 650 MG PO (14:08)
--- NOTE | 2018-08-22 14:42 | PCM.PROGNOTE ---
Patient Problems: Active and Suspected Problems Chest pain (Acute) Abnormal cardiac enzyme level (Acute) Angina pectoris (Acute) Subjective: Pt resting comfortably in bed. Some pain at leg cath site. Ongoing chronic back pain. No n/v/chest pain/SOB. Discussed cath findings. Discussed options for diabetes treatment. She will not take metformin as she tried in past and had severe exacerbation of her IBS. Agreeable to victoza. Will send to check cost - tier 3. - Physical Exam General: Alert, Oriented x3, Cooperative HEENT: Atraumatic, PERRLA, EOMI, Normocephalic Neck: Supple, No JVD, Negative Carotid Bruits Lungs: Clear to auscultation, Normal air movement Cardiovascular: Regular rate, No murmurs Abdomen: Bowel Sounds Present, Soft, Non Tender Extremities: No edema, Capillary Refill Less than 3 Seconds Skin: No rashes, No breakdown Musculoskeletal: No Tenderness to Palpation of Joints or Extremities Neurological: Cranial nerves II-XII grossly intact Psych/Mental Status: Normal Affect, Appropriate Vital Signs Temp Pulse Resp BP Pulse Ox 98.5 F 78 17 130/70 H 98 08/22/18 11:30 08/22/18 14:00 08/22/18 14:00 08/22/18 14:00 08/22/18 14:00 Oxygen Delivery Method Room Air Weight: 215 lb 13.321 oz Body Mass Index (BMI) 38.2 Intake and Output for Last 24 Hours 08/20/18 08/21/18 08/22/18 23:59 23:59 23:59 Intake Total 555 / 555 1929 916 / 916 Balance 555 / 555 1929 916 / 916 Microbiology Past 72 Hours 08/21/18 10:35 Group A Streptococcus Rapid Screen - Preliminary Mucosa - Throat Laboratory Tests Past 24 Hrs 08/21/18 08/22/18 08/22/18 21:35 04:00 04:00 WBC 9.5 RBC 4.92 Hgb 15.2 H Hct 44.6 MCV 90.7 MCH 30.9 MCHC 34.1 RDW 12.9 RDW Differential 42.0 Plt Count 311 MPV 10.7 Immature Gran % (Auto) 0.300 Neut % (Auto) 55.1 Lymph % (Auto) 36.5 [place] % (Auto) 6.7 Eos % (Auto) 1.1 Baso % (Auto) 0.3 Absolute Neuts (auto) 5.2 Absolute Lymphs (auto) 3.46 Total Counted Not Reportable PT 13.0 INR 1.0 APTT 42.6 H Activated Clotting Time Sodium Potassium Chloride Carbon Dioxide Anion Gap BUN Creatinine Estim Creat Clear Calc Est GFR (MDRD) Af Amer Est GFR (MDRD) Non-Af BUN/Creatinine Ratio Glucose Calcium Urine Color Yellow Urine Clarity Clear Urine pH 6.0 Ur Specific [place] 1.020 Urine Protein Negative Urine Glucose (UA) Normal Urine Ketones Negative Urine Occult Blood 10 H Urine Nitrite Negative Urine Bilirubin Negative Urine Urobilinogen Normal Ur Leukocyte Esterase 500 H Urine RBC 0 SEEN Urine WBC 5-10 SEEN Ur Squamous Epith Cells 5-10 SEEN Urine Bacteria 0 SEEN Urine Mucus 0 SEEN 08/22/18 08/22/18 04:00 08:37 WBC RBC Hgb Hct MCV MCH MCHC RDW RDW Differential Plt Count MPV Immature Gran % (Auto) Neut % (Auto) Lymph % (Auto) [place] % (Auto) Eos % (Auto) Baso % (Auto) Absolute Neuts (auto) Absolute Lymphs (auto) Total Counted PT INR APTT Activated Clotting Time 219 H Sodium 139 Potassium 3.8 Chloride 106 Carbon Dioxide 25.0 Anion Gap 8 BUN 10 Creatinine 0.66 Estim Creat Clear Calc 86.23 Est GFR (MDRD) Af Amer 123 Est GFR (MDRD) Non-Af 102 BUN/Creatinine Ratio 15.2 Glucose 163 H Calcium 8.8 Urine Color Urine Clarity Urine pH Ur Specific [place] Urine Protein Urine Glucose (UA) Urine Ketones Urine Occult Blood Urine Nitrite Urine Bilirubin Urine Urobilinogen Ur Leukocyte Esterase Urine RBC Urine WBC Ur Squamous Epith Cells Urine Bacteria Urine Mucus POC Glucose 08/22/18 08/22/18 08/21/18 11:50 06:09 21:10 POC Glucose 145 H 127 H 180 H 08/21/18 16:18 POC Glucose 127 H Medical Necessity - Tobacco Use Smoking Status: Current some day smoker Tobacco Use: Cigarettes Assessment/Plan All Active Problems Chest pain (Acute) Abnormal cardiac enzyme level (Acute) Angina pectoris (Acute) Lower GI bleed (Acute) Pancolitis (Acute) 1. Non-STEMI, chest pain with indeterminate troponin - Underwent heart cath. Stent placed to circumflex today. Care per cardiology. 2. Type 2 diabetes with obesity -A1c was 7.3 consistent with type 2 diabetes. Sliding scale insulin added. Does not tolerate metformin 2/2 IBS flares. Agreeable to victoza. check [place] prior to dc. 3. Nicotine abuse - 1ppd x 30 years. Patch if desired. 4. Recent URI-diagnosed with sinusitis- on augmentin. Reports sore throat, swollen lymph nodes. Strep test was negative. Continue Augmentin for total of 7 days. Last dose tmrw am. 5. Hypothyroidism - synthroid, TSH normal 6. Hx GERD, ulcers - continue protonix 7. HLD - statin 9. Anxiety - buspar DVT ppx: lovenox This patient was seen by Benjy Rangel PA-C under the supervision of Dr. Kendall
--- NOTE | 2018-08-22 15:03 | CASEMGMT ---
RN CM Assessment Presentation: NSTEMI, PCI mid LCx with stent. New onset diabetes Type II. Intro role of CM and purpose of RN CM assessment. Demographics, PCP and Pharmacy verified. PCP: Dr. Smith Specialists: Dr. Eldridge Preferred Pharmacy: [facility] Insurance: [employer] BC/BS Prescription Benefit: yes. Per KAUSHIK Rod- pt may be prescribed Victoza on discharge. Per [employer] 2019 formulary website, this is a Tier 3 medication though copay amt is not listed. Pt would like this medication cost prior to dc. Can check with pt's pharmacy once script is e-faxed. LNOK: Roegr Granados, Living Arrangements: lives independently with her . Pt denies care needs. Transportation: Drives, or can drive if needed. DME: none. Will need blood glucose monitoring machine, supplies and teaching prior to discharge. HHC: none Patient DC goals: Home DC PLAN: Home. check cost of Victoza on dc. Evie HERNANDEZ RN ACM
[2018-08-22] MEDS: Ondansetron 4 MG/2 ML Vial IV (15:14)
--- NOTE | 2018-08-22 18:00 | NURSING ---
Pt ambulated around unit post bedrest. R groin remains soft without drainage. No s/s hematoma. Tenderness w/ palpation.
[2018-08-22 18:15] LABS: Bedside Glucose 155 mg/dL (70-110)
[2018-08-22] MEDS: Insulin Lispro 100 UNIT/ML INSULN.PEN SC ×2 (18:18→21:24)
[2018-08-22] MEDS: Metoclopramide 10 MG/2 ML Vial 5 MG IV (18:47)
--- NOTE | 2018-08-22 19:07 | CT_ITS ---
STUDY: CT ABDOMEN AND PELVIS WITH CONTRAST REASON FOR EXAM: Female, 48 years old. Back pain RADIATION DOSAGE (If Supplied By Facility): DLP = ( 1234.20 ) mGycm TECHNIQUE: Transaxial images were obtained from the dome of the diaphragm to the symphysis pubis without oral contrast. 100ML ml of Isovue 300 contrast was administered. Sagittal and coronal images were reconstructed. Individualized dose optimization techniques were used for this CT. COMPARISON: CT abdomen and pelvis January 21, 2016 FINDINGS: There is a stable right lung base 4 mm nodule. There is a stable right posterior lower lobe 3 mm nodule, series 2 image 6. The visualized portions of the heart and pericardium are within normal limits. There are no calcified gallstones present. The liver is within normal limits. There are no suspicious hepatic lesions. The spleen is normal in size. The pancreas is within normal limits. The adrenal glands are within normal limits. There are no obstructing renal stones. There is no hydronephrosis. There are no focal renal lesions. Normal visualized stomach. There is mild to moderate gaseous distention of the mid abdominal small bowel with air-fluid levels present. There is no evidence of bowel obstruction. The appendix is not visualized, but there are no findings to suggest acute appendicitis. The aorta is normal in caliber. There is no abdominal or pelvic free air, free fluid, fluid collection or lymphadenopathy. There are no destructive osseous lesions. CT/Abdomen/Pelvis W IV Cont ONLY IMPRESSION: Mild to moderate gaseous distention of mid abdominal small bowel with air-fluid levels, suggesting ileus. Stable right lung base nodules measuring up to 4 mm. Electronically Signed: Andres Pinto, at 20:35 EDT Tel , Service support ,
--- NOTE | 2018-08-22 19:19 | PCM.PN.CARD ---
Subjectve: The patient is status post diagnostic cardiac catheterization. She had been complaining of waxing and waning low central back discomfort. After being up and ambulating she noted her back discomfort being somewhat more prominent as well as feeling somewhat nauseated and reportedly appearing clammy/diaphoretic. She is resting in bed at this time. Objective: Vital Signs Temp Pulse Resp BP Pulse Ox 98.5 F 73 12 138/72 H 98 08/22/18 11:30 08/22/18 18:00 08/22/18 18:00 08/22/18 18:00 08/22/18 18:00 Oxygen Delivery Method Room Air Weight: 215 lb 13.321 oz Body Mass Index (BMI) 38.2 Intake and Output for Last 24 Hours 08/20/18 08/21/18 08/22/18 23:59 23:59 23:59 Intake Total 555 / 555 193 / 0 1716 / 1716 Output Total 200 / 200 Balance 555 / 555 193 / 0 1516 / 1516 General: Awake, Alert, Oriented x 3, Cooperative Oral: Moist Mucosa Neck: Supple, Good ROM, No JVD Lungs: Clear to auscultation Cardiovascular: Regular Rhythm, Normal S1, Normal S2 Vascular: Normal Femoral Pulses - Right femoral pulse: 2+/4+; no bruits; no hematoma Abdomen: Bowel Sounds Present, Soft, Non Tender Extremities: No edema Musculoskeletal: - - Back discomfort: Low/central; flank discomfort: Negative Neurological: No Focal Motor or Sensory Deficit Psych/Mental Status: Anxious 08/21/18 21:35: Urine Color Yellow, Urine Clarity Clear, Urine pH 6.0, Ur Specific [place] 1.020, Urine Protein Negative, Urine Glucose (UA) Normal, Urine Ketones Negative, Urine Occult Blood 10 H, Urine Nitrite Negative, Urine Bilirubin Negative, Urine Urobilinogen Normal, Ur Leukocyte Esterase 500 H, Urine RBC 0 SEEN, Urine WBC 5-10 SEEN 08/22/18 04:00: WBC 9.5, RBC 4.92, Hgb 15.2 H, Hct 44.6, MCV 90.7, MCH 30.9, MCHC 34.1, RDW 12.9, RDW Differential 42.0, Plt Count 311, MPV 10.7, Immature Gran % (Auto) 0.300, Neut % (Auto) 55.1, Lymph % (Auto) 36.5, [place] % (Auto) 6.7, Eos % (Auto) 1.1, Baso % (Auto) 0.3, Absolute Neuts (auto) 5.2, Total Counted Not Reportable 08/22/18 04:00: PT 13.0, INR 1.0, APTT 42.6 H 08/22/18 04:00: Sodium 139, Potassium 3.8, Chloride 106, Carbon Dioxide 25.0, Anion Gap 8, BUN 10, Creatinine 0.66, Est GFR (MDRD) Af Amer 123, Est GFR (MDRD) Non-Af 102, BUN/Creatinine Ratio 15.2, Glucose 163 H, Calcium 8.8 Rhythm: Sinus rhythm EKG: Sinus rhythm; no acute ECG changes Medical Necessity - Tobacco Use Smoking Status: Current some day smoker Tobacco Use: Cigarettes Assessment/Plan 1. NSTEMI The patient has undergone evaluation and care for a non-ST segment elevation [place]. This has included noninvasive studies including transthoracic echocardiogram as well as now invasive studies including diagnostic cardiac catheterization. The patient was found to have angiographically significant CAD in the LCx/OM distribution. She has subsequently undergone PCI. She will continue medical management. 2. CAD status post LCx/OM PCI The patient will continue medical therapy. She will be monitored in the ICU overnight. She will need continued future outpatient cardiovascular follow-up and cardiac rehabilitation therapy. 3. Hyperlipidemia She will continue risk factor evaluation and care. 4. Prediabetes She readily admits she has not been monitoring her glucose levels. She is going to be evaluated by dietary/nutritional services. She will need continued evaluation care by her primary care physicians. 5. Hypothyroidism She will continue evaluation care by her primary care physicians. 6. Back discomfort At the present time her heart rate, blood pressure, and cardiac rhythm appears stable. Her ECG demonstrates no acute changes. Her right inguinal area demonstrates no obvious ecchymoses, hematoma, or right femoral artery bruit. She does not appear to have any obvious flank discomfort. However she continues with low central back discomfort. From a cardiac standpoint she may have back discomfort from being supine for prolonged period of time and upon being up and ambulating, secondary to her discomfort, have stimulated a noxious stimuli event with vasovagal activity including concerns of nausea and the appearance of being clammy or diaphoretic. However, based upon her invasive procedure and concerns of the possibility of retroperitoneal hemorrhage she will be further evaluated with H&H and an abdominal/pelvic CT scan. In the interim she will continue analgesic therapy and antiemetic therapy as deemed appropriate. She will remain in the ICU for monitoring. Comment: The patient's case was discussed and reviewed with the patient and and her family members present. This note was generated with [employer] dictation software. It may contain incorrect words, spelling, and punctuation that were not noted in checking the note before signing.
[2018-08-22 19:52] LABS: Hematocrit 44.7 % (37-47); Hemoglobin 15.2 g/dl (12.0-15.0)
[2018-08-22] MEDS: Atorvastatin Calcium 40 MG Tablet PO (21:16)
[2018-08-22 21:31] LABS: Bedside Glucose 171 mg/dL (70-110)
[2018-08-22] MEDS: 0.9% Normal Saline 1,000 ML 75 ML IV (22:12)
[2018-08-23] VITALS (16 sets, daily range): BP systolic 94–128; BP diastolic 38–88; PULSE 61–81; RESP 15–22; TEMP 36.6–37.1; O2SAT 90–100
[2018-08-23] MEDS: Levothyroxine 125 MCG Tablet PO (05:14)
[2018-08-23] MEDS: busPIRone 5 MG Tablet PO (05:14)
[2018-08-23] MEDS: 0.9% Normal Saline 1,000 ML 75 ML IV (05:16)
[2018-08-23 05:39] LABS: Hematocrit 43.2 % (37-47); Hemoglobin 14.7 g/dl (12.0-15.0); Mean Corpuscular Hgb 30.9 pg (27.0-32.0); Mean Corpuscular Volume 90.8 fL (81-99); Mean Platelet Vol. 10.8 fl (6.2-12.0); Platelet Count 311 K/mm3 (150-450); RBC Distribution Width CV 12.8 % (11.6-14.6); RBC Distribution Width SD 41.9 fl (35.1-43.9); Red Blood Count 4.76 M/mm3 (4.2-5.4); White Blood Count 11.6 K/mm3 (4.4-11.0)
[2018-08-23 05:41] LABS: Scan Indicated on CBC? Y/N NO
[2018-08-23 05:46] LABS: Anion Gap 8 (5-15); BUN 5 mg/dL (7-18); BUN/Creat Ratio 8.5 RATIO (10-20); Calcium,Total 8.4 mg/dL (8.5-10.1); Chloride 108 mmol/L (98-107); Cholesterol 141 mg/dL (200); Creatinine, Serum 0.59 mg/dL (0.55-1.02); EST Glomerular Filtration Rate 116 mL/min (>60); Est Glom Filt Rate - Afr Amer 140 mL/min (>60); Estimated Creatinine Clearance 96.46 ml/min; Glucose 147 mg/dL (74-106); High Density Lipoprotein 34 mg/dL; Potassium 3.8 mmol/L (3.5-5.1); Sodium Level 141 mmol/L (136-145); Triglycerides 162 mg/dL; Very Low Density Lipoprotein 32 mg/dL (5-40)
[2018-08-23] MEDS: Insulin Lispro 100 UNIT/ML INSULN.PEN SC (06:58)
[2018-08-23 07:06] LABS: Bedside Glucose 154 mg/dL (70-110)
--- NOTE | 2018-08-23 08:12 | DCINST_ITS ---
- Discharge Diagnoses Current Active Problems: Current Active and Chronic Problems (1) Chest Pain w/ Acute NSTEMI w/ RCA CAD s/p PCI (2) Recent Acute Sinusitis (3) New Onset Diabetes mellitus type II, Previously Prediabetic (4) Hyperlipidemia (5) Tobacco Abuse (6) Hypothyroidism (7) Anxiety (8) Obesity (9) GERD, PUD (10) Chronic Constipation, IBS You will use the following diet at home:: Other - Cardiac, Diabetic 1800 diet. Your food should be the consistency of: Regular Your liquids should be the consistency of: Regular/Thin Discharge Activity: - - See activity directions in addition information. Weight Bearing Status: Weight bearing as tolerated Call your doctor if your incision/area has: Continuous Slow Oozing, Sudden Increased Bleeding, Increased Pain/ Swelling, Increased Redness, Foul Smelling Discharge, Swelling at the incision site Call your doctor if you observe: Fever of 101 or Higher, Inability to urinate, Inability to have a bowel movement, Shortness of breath, Dizziness, Fainting spells, Chest pain, Uncontrolled pain Instructions: Long-Term Complications of Diabetes, Healthy Meals for Diabetes, Eating Out When You Have Diabetes, Diabetes: Learning About Serving and Portion Sizes, Diabetes: Meal Planning, Diabetes: Understanding Carbohydrates, Fats, and Protein, Liraglutide Solution for injection, Tips for Quitting Smoking (Cardiovascular), Why Do You Smoke?, Planning to Quit Smoking, Getting Support for Quitting Smoking, Coping with Smoking Withdrawal, Symptoms of a Heart Attack, Discharge Instructions for Heart Attack, Lifestyle Management After Percutaneous Coronary Intervention (PCI), Understanding Coronary Artery Disease (CAD), Understanding Type 2 Diabetes Additional Instructions: CARDIOLOGY PCI CATH INSTRUCTIONS. Lifting: Must be less than 5 lbs for 5 days, No restrictions after 14 days. Shower: Yes. Climb stairs: Yes. Bathing in tub or submerged water: No, until cleared per Cardiology at follow-up (call office if any concerns [phone] and may leave voicemail if after hours). Walkin minutes 3 times daily, increase as tolerated. Driving: Resume in 7 days. Sexual activity: Resume in 14 days. Regular activity: Resume 14 days Allergies/Adverse Reactions: Allergies acetaminophen [From Vicodin] Adverse Reaction (Verified 08/20/18 03:46) Nausea hydrocodone [From Vicodin] Adverse Reaction (Verified 08/20/18 03:46) Nausea Medications to take at Discharge Levothyroxine [Synthroid] 125 mcg PO MOTUWETHFRSA 01/21/16 Amoxicillin/Potassium Clav [Amox-Clav 875-125 mg Tablet] 1 each PO BID 08/20/18 Fluticasone 0.05% [Flonase Nasal [place]] 1 spray NASAL DAILY 08/20/18 Ranitidine [Zantac] 150 mg PO DAILY 08/20/18 busPIRone [Buspar] 5 mg PO TID 08/20/18 Aspirin [Aspirin, Baby] 81 mg PO DAILY@0800 #30 tab.chew 08/23/18 Atorvastatin Calcium [Lipitor] 80 mg PO QHS #30 tablet 08/23/18 Clopidogrel Bisulfate [Plavix] 75 mg PO DAILY #30 tablet 08/23/18 Guaifenesin [Mucinex] 1,200 mg PO BID #20 tablet 08/23/18 Liraglutide [Victoza] 0.6 mg SQ DAILY 30 Days #6 ml 08/23/18 Metoprolol Tartrate [Lopressor (beta demetria)] 50 mg PO BID #60 tablet 08/23/18 Nicotine [Nicoderm Cq] 21 mg TRANSDERM. DAILY #14 patch 08/23/18 Polyethylene Glycol 3350 [Miralax] 17 gm PO DAILY #30 packet 08/23/18 The following prescriptions were given: Aspirin [Aspirin, Baby] 81 mg PO DAILY@0800 #30 tab.chew Atorvastatin Calcium [Lipitor] 80 mg PO QHS #30 tablet Clopidogrel Bisulfate [Plavix] 75 mg PO DAILY #30 tablet Liraglutide [Victoza] 0.6 mg SQ DAILY 30 Days #6 ml Nicotine [Nicoderm Cq] 21 mg TRANSDERM. DAILY #14 patch Polyethylene Glycol 3350 [Miralax] 17 gm PO DAILY #30 packet Guaifenesin [Mucinex] 1,200 mg PO BID #20 tablet Metoprolol Tartrate [Lopressor (beta demetria)] 50 mg PO BID #60 tablet Primary Care Physician: Fabian Smith MD [Primary Care Provider] - Please follow up with your Primary Care Physician in: Follow-up in 3-5 days to review admission. Test Results: Test results from this visit will be discussed in further detail at your follow- up appointment, if applicable. Please Follow Up With: Isiah Eldridge MD When: Cardiology office will contact you to arrange appointment. Proposed Discharge Date: 08/23/18
--- NOTE | 2018-08-23 08:17 | PCM.DC.SUM ---
Discharge Date and Diagnosis - Problem List Patient Problems: Active and Suspected Problems Chest pain (Acute) Abnormal cardiac enzyme level (Acute) Angina pectoris (Acute) Date of Admission: 08/20/18 Date of Discharge: 08/23/18 - Primary Discharge Diagnosis Active and Suspected Problems (1) Chest Pain w/ Acute NSTEMI w/ RCA CAD s/p PCI (2) Recent Acute Sinusitis (3) New Onset Diabetes mellitus type II, Previously Prediabetic (4) Hyperlipidemia (5) Tobacco Abuse (6) Hypothyroidism (7) Anxiety (8) Obesity (9) GERD, PUD (10) Chronic Constipation, IBS - Secondary Discharge Diagnosis Chronic Problems HLD (hyperlipidemia) (Chronic) Prediabetes (Chronic) Hypothyroidism (Chronic) Hospital Course and Treatment Dr. Eldridge Cardiology Operations: None Procedures: 2-D Echocardiogram, Cardiac catheterization, EKG Summary of Care Provided: The patient is a 48 y/o F w/ PMHx: Prediabetes, Hx Thyroid nodule s/p thyroidectomy, Obesity, GERD w/ Pepticu Ulcer disease, Anxiety, HLD, Recent Acute Sinusitis on outpatient regimen augmentin and flonase who presented to the [facility] ED on 08/20/18 w/ history of chest discomfort starting approximately 1 to 2 hours prior to ED presentation, unable to sleep secondary to discomfort described as a burning as well as tightness in the midsternal region with radiation to the back as well as bilateral upper extremities with paresthesias. EKG in ED w/ sinus rhythm with subtle ST depression in the anterior lateral leads new from prior EKGs, CXR w/ no acute cardiopulmonary findings. Trop elevated, 1.190. Admitted initially to PCU, maintained on a monitored bed, continued serial cardiac enzymes w/ <0.015-->0.233-->1.190-->1.930-->1.810-->1.220, initiated and continued upon Heparin drip until cardiac catheterization, continued medical management w/ asa, plavix, BB, statin w/ AM FLP w/ triglycerides 162, total cholesterol 174, LDL 105, VLDL 32, HDL 37. 5/ cardiac catheterization w/ successful PTCA/DIMPLE mid LCx w/ recommendations for ASA indefinitely, Plavix x 12 months, risk factor modification, tobacco cessation, planned stress testing in 1 to 2 weeks to reevaluate RCA lesion per cardiology direction. Evening following cardiac catheterization patient did have severe back discomfort and CT abdomen pelvis was obtained with noted mild to moderate gaseous distention of the mid abdominal small bowel with air-fluid levels suggestive of ileus with patient chronic IBS issues with last BM approximately 2 days prior, stable per patient report as well as a stable right lung base nodules up to 4 mm. Patient started on daily miralax which she notes taking although not daily despite constipation issues. Following ability to get up and move patient back discomfort markedly improved and she had no further similar issues. Patient was maintained upon admission on regimen of Augmentin as well as Flonase with addition of Mucinex for recent acute sinusitis. During admission given patient prediabetic status with elevated blood sugars obtained HgbA1c w/ noted 7.3%, consistent with diabetes mellitus type II, therefore maintained on ADA diet, known to be non-metformin intolerant secondary to concurrent IBS, therefore upon discharge initiated Victoza regimen with CM cost assessment requested as well as nutrition consultation for education and teaching. Per discussion with Dr. Eldridge patient able to be discharged to home given clinical improvement, no further chest discomfort with plan to follow-up in his office as well as with primary care physician. DAY OF DISCHARGE PROGRESS NOTE: Subjective: As noted the evening prior patient had severe onset of back discomfort while on bedrest. CT abdomen pelvis was obtained with only noted issue being ileus which patient has chronic IBS and constipation and did not feel any differently. Following allowance of being up and ambulation patient had complete resolution. Patient denied any further chest discomfort and this morning very eager for discharge. Patient currently denies fever, chills, nausea, emesis, above baseline abdominal pain, recurrent chest pain. Patient agreeable to discharge to home. Patient will be discharged with follow-up with primary care physician within 3-5 days in addition to Cardiology per their discretion. Objective: T 98.2, heart rate 72, BP 114/77, respiratory rate 21, 97% on room air. Physical Examination: General: awake, alert, oriented x 3 and cooperative, seated upright in the ICU bed, NAD, eating breakfast, working on her computer.. Skin: normal color, turgor, no icterus, cyanosis. HEENT: AT/NC, EOMI, PERRLA, MMM. Lungs: CTA bilaterally, moderate effort, mild decrease BL bases, no rales, ronchi or wheezing; Heart: Regular rate and rhythm; no gallop, rub audible. Abdomen: soft, obese, mild generalized discomfort which she notes as chronic, ND, mildly hypoactive BS. Extremities: no cyanosis, clubbing, or edema. Neurological: patient awake, alert, oriented x 3; cognitive function appears intact upon questioning,; pupils equally reactive to light and accomodation; cranial nerves II-XII grossly normal, moving all 4 extremities, strength appropriate. Psychiatric: affect appears normal, no acute evidence of depressive or anxiety feelings. Assessment and Plan: Please see hospital summary above. Patient Problems: Active and Suspected Problems Chest pain (Acute) Abnormal cardiac enzyme level (Acute) Angina pectoris (Acute) - Physical Exam Vital Signs Temp Pulse Resp BP Pulse Ox 98.2 F 67 21 H 114/77 97 08/23/18 04:00 08/23/18 07:00 08/23/18 07:00 08/23/18 07:00 08/23/18 07:00 Oxygen Delivery Method Room Air Weight: 212 lb 1.355 oz Body Mass Index (BMI) 38.2 Intake and Output for Last 24 Hours 08/21/18 08/22/18 08/23/18 23:59 23:59 23:59 Intake Total 1929 / 2128 724 / 724 Output Total 200 / 200 Balance 1929 724 / 724 Microbiology Past 72 Hours 08/21/18 10:35 Group A Streptococcus Rapid Screen - Final Mucosa - Throat Laboratory Tests Past 24 Hrs 08/22/18 08/22/18 08/23/18 08:37 18:50 05:15 WBC RBC Hgb 15.2 H Hct 44.7 MCV MCH MCHC RDW RDW Differential Plt Count MPV Activated Clotting Time 219 H Sodium 141 Potassium 3.8 Chloride 108 H Carbon Dioxide 25.0 Anion Gap 8 BUN 5 L Creatinine 0.59 Estim Creat Clear Calc 96.46 Est GFR (MDRD) Af Amer 140 Est GFR (MDRD) Non-Af 116 BUN/Creatinine Ratio 8.5 L Glucose 147 H Calcium 8.4 L Triglycerides 162 Cholesterol 141 LDL Cholesterol 75 VLDL Cholesterol 32 HDL Cholesterol 34 L 08/23/18 05:15 WBC 11.6 H RBC 4.76 Hgb 14.7 Hct 43.2 MCV 90.8 MCH 30.9 MCHC 34.0 RDW 12.8 RDW Differential 41.9 Plt Count 311 MPV 10.8 Activated Clotting Time Sodium Potassium Chloride Carbon Dioxide Anion Gap BUN Creatinine Estim Creat Clear Calc Est GFR (MDRD) Af Amer Est GFR (MDRD) Non-Af BUN/Creatinine Ratio Glucose Calcium Triglycerides Cholesterol LDL Cholesterol VLDL Cholesterol HDL Cholesterol POC Glucose 08/23/18 08/22/18 08/22/18 06:56 21:24 18:13 POC Glucose 154 H 171 H 155 H 08/22/18 11:50 POC Glucose 145 H Discharge Activity: - - See activity directions in addition information. Weight Bearing Status: Weight bearing as tolerated Call your doctor if your incision/area has: Continuous Slow Oozing, Sudden Increased Bleeding, Increased Pain/ Swelling, Increased Redness, Foul Smelling Discharge, Swelling at the incision site Call your doctor if you observe: Fever of 101 or Higher, Inability to urinate, Inability to have a bowel movement, Shortness of breath, Dizziness, Fainting spells, Chest pain, Uncontrolled pain Home Medications: Medications to take at Discharge Levothyroxine [Synthroid] 125 mcg PO MOTUWETHFRSA 01/21/16 Amoxicillin/Potassium Clav [Amox-Clav 875-125 mg Tablet] 1 each PO BID 08/20/18 Fluticasone 0.05% [Flonase Nasal [place]] 1 spray NASAL DAILY 08/20/18 Ranitidine [Zantac] 150 mg PO DAILY 08/20/18 busPIRone [Buspar] 5 mg PO TID 08/20/18 Aspirin [Aspirin, Baby] 81 mg PO DAILY@0800 #30 tab.chew 08/23/18 Atorvastatin Calcium [Lipitor] 80 mg PO QHS #30 tablet 08/23/18 Clopidogrel Bisulfate [Plavix] 75 mg PO DAILY #30 tablet 08/23/18 Guaifenesin [Mucinex] 1,200 mg PO BID #20 tablet 08/23/18 Liraglutide [Victoza] 0.6 mg SQ DAILY 30 Days #6 ml 08/23/18 Metoprolol Tartrate [Lopressor (beta priti)] 50 mg PO BID #60 tablet 08/23/18 Nicotine [Nicoderm Cq] 21 mg TRANSDERM. DAILY #14 patch 08/23/18 Polyethylene Glycol 3350 [Miralax] 17 gm PO DAILY #30 packet 08/23/18 Following Prescrptions Were Given to Patient: Aspirin [Aspirin, Baby] 81 mg PO DAILY@0800 #30 tab.chew Atorvastatin Calcium [Lipitor] 80 mg PO QHS #30 tablet Clopidogrel Bisulfate [Plavix] 75 mg PO DAILY #30 tablet Liraglutide [Victoza] 0.6 mg SQ DAILY 30 Days #6 ml Nicotine [Nicoderm Cq] 21 mg TRANSDERM. DAILY #14 patch Polyethylene Glycol 3350 [Miralax] 17 gm PO DAILY #30 packet Guaifenesin [Mucinex] 1,200 mg PO BID #20 tablet Metoprolol Tartrate [Lopressor (beta priti)] 50 mg PO BID #60 tablet Other Amb Orders: Glucometer Location: None Selected Primary Care Physician: Fabian Smith MD [Primary Care Provider] - Please follow up with your Primary Care Physician in: Follow-up in 3-5 days to review admission. Please Follow Up With: Isiah Eldridge MD When: Cardiology office will contact you to arrange appointment. Patient Instructions: Liraglutide Solution for injection, Symptoms of a Heart Attack, Tips for Quitting Smoking (Cardiovascular), Long-Term Complications of Diabetes, Healthy Meals for Diabetes, Eating Out When You Have Diabetes, Why Do You Smoke?, Planning to Quit Smoking, Getting Support for Quitting Smoking, Coping with Smoking Withdrawal, Understanding Coronary Artery Disease (CAD), Discharge Instructions for Heart Attack, Diabetes: Learning About Serving and Portion Sizes, Diabetes: Meal Planning, Diabetes: Understanding Carbohydrates, Fats, and Protein, Understanding Type 2 Diabetes, Lifestyle Management After Percutaneous Coronary Intervention (PCI) Disposition: Home Minutes spent on discharge:: 35 Patient Condition:: Fair Medical Necessity - Tobacco Use Smoking Status: Current some day smoker Tobacco Use: Cigarettes Meaningful Use Info Meaningful Use Diagnoses (Choose all that apply): AMI - AMI Aspirin given w/in 24hrs of arrival?: Yes ASA at discharge?: Yes Statins at discharge?: Yes Kwan/ARB at discharge?: No Reason Kwan/ARB not ordered:: Hypotension Beta Priti at discharge?: Yes Done w/ Acute [place] measure.: Yes Documented LVEF (%): 60 Code Visit Inpatient E&M: 19622 Disch Hosp
[2018-08-23] MEDS: Fluticasone 0.05% 1 SPRAY NASAL.SRY NASAL (08:51)
[2018-08-23] MEDS: Aspirin 81 MG TAB.CHEW PO (08:52)
[2018-08-23] MEDS: Metoprolol Tartrate 50 MG Tablet PO (08:52)
[2018-08-23] MEDS: Polyethylene Glycol 3350 17 GM PACKET PO (08:53)
[2018-08-23] MEDS: guaiFENesin 1,200 MG Tablet 1200 MG PO (08:54)
[2018-08-23] MEDS: Pantoprazole Sodium 40 MG Tablet PO (08:58)
[2018-08-23] MEDS: Clopidogrel Bisulfate 75 MG Tablet PO (08:58)
--- NOTE | 2018-08-23 09:33 | PCM.PN.CARD ---
Subjectve: The patient is awake and alert. She denies ongoing chest discomfort. She states her low back discomfort has improved. Objective: Vital Signs Temp Pulse Resp BP Pulse Ox 98.2 F 81 21 H 117/59 L 97 08/23/18 04:00 08/23/18 08:52 08/23/18 07:00 08/23/18 08:52 08/23/18 07:00 Oxygen Delivery Method Room Air Weight: 212 lb 1.355 oz Body Mass Index (BMI) 38.2 Intake and Output for Last 24 Hours 08/21/18 08/22/18 08/23/18 23:59 23:59 23:59 Intake Total 1929 / 2128 724 / 724 Output Total 200 / 200 Balance 1929 724 / 724 General: Awake, Alert, Oriented x 3, Cooperative, No Acute Distress, Obese HEENT: Atraumatic, Normocephalic, PERRL, EOMI, Sclera Non Icteric Neck: Supple, Good ROM, No JVD Lungs: Clear to auscultation Cardiovascular: Regular Rhythm, Normal S1, Normal S2 Vascular: Normal Femoral Pulses Abdomen: Bowel Sounds Present, Soft, Non Tender Extremities: No edema Neurological: No Focal Motor or Sensory Deficit Psych/Mental Status: Appropriate 08/22/18 18:50: Hgb 15.2 H, Hct 44.7 08/23/18 05:15: Sodium 141, Potassium 3.8, Chloride 108 H, Carbon Dioxide 25.0, Anion Gap 8, BUN 5 L, Creatinine 0.59, Est GFR (MDRD) Af Amer 140, Est GFR (MDRD) Non-Af 116, BUN/Creatinine Ratio 8.5 L, Glucose 147 H, Calcium 8.4 L, Triglycerides 162, Cholesterol 141, LDL Cholesterol 75, VLDL Cholesterol 32, HDL Cholesterol 34 L 08/23/18 05:15: WBC 11.6 H, RBC 4.76, Hgb 14.7, Hct 43.2, MCV 90.8, MCH 30.9, MCHC 34.0, RDW 12.8, RDW Differential 41.9, Plt Count 311, MPV 10.8 Rhythm: Sinus rhythm EKG: Sinus rhythm; no acute ECG changes Abdominal/pelvic CT scan: Reported as negative for any obvious vascular compromise/hemorrhagic event Medical Necessity - Tobacco Use Smoking Status: Current some day smoker Tobacco Use: Cigarettes Assessment/Plan 1. NSTEMI The patient has undergone evaluation and care for a non-ST segment elevation [place]. This has included noninvasive studies including transthoracic echocardiogram as well as now invasive studies including diagnostic cardiac catheterization. The patient was found to have angiographically significant CAD in the LCx/OM distribution. She has subsequently undergone PCI. She will continue medical management. 2. CAD status post LCx/OM PCI The patient will continue medical therapy. She will need continued future outpatient cardiovascular follow-up and cardiac rehabilitation therapy. 3. Hyperlipidemia She will continue risk factor evaluation and care. 4. Prediabetes She readily admits she has not been monitoring her glucose levels. She is going to be evaluated by dietary/nutritional services. She will need continued evaluation care by her primary care physicians. 5. Hypothyroidism She will continue evaluation care by her primary care physicians. 6. Back discomfort Is undergone further evaluation and care. Based on concerns of any possible vascular compromise or hemorrhagic events she had a repeat H&H which was stable and an abdominal/pelvic CT scan which demonstrated no acute vascular compromise or hemorrhagic event. Thus her back discomfort may be related to her bedrest superimposed upon musculoskeletal discomfort. She appears to be symptomatically improved this morning after being up out of bed. Comment: The patient's case has been discussed and reviewed with the [facility] staff. This note was generated with [employer] dictation software. It may contain incorrect words, spelling, and punctuation that were not noted in checking the note before signing.
--- NOTE | 2018-08-23 09:36 | PN.CARD_ITS ---
Subjectve: The patient is awake and alert. She denies ongoing chest discomfort. She states her low back discomfort has improved. Objective: Vital Signs Temp Pulse Resp BP Pulse Ox 98.2 F 81 21 H 117/59 L 97 08/23/18 04:00 08/23/18 08:52 08/23/18 07:00 08/23/18 08:52 08/23/18 07:00 Oxygen Delivery Method Room Air Weight: 212 lb 1.355 oz Body Mass Index (BMI) 38.2 Intake and Output for Last 24 Hours 08/21/18 08/22/18 08/23/18 23:59 23:59 23:59 Intake Total 1929 / 2128 724 / 724 Output Total 200 / 200 Balance 1929 724 / 724 General: Awake, Alert, Oriented x 3, Cooperative, No Acute Distress, Obese HEENT: Atraumatic, Normocephalic, PERRL, EOMI, Sclera Non Icteric Neck: Supple, Good ROM, No JVD Lungs: Clear to auscultation Cardiovascular: Regular Rhythm, Normal S1, Normal S2 Vascular: Normal Femoral Pulses Abdomen: Bowel Sounds Present, Soft, Non Tender Extremities: No edema Neurological: No Focal Motor or Sensory Deficit Psych/Mental Status: Appropriate 08/22/18 18:50: Hgb 15.2 H, Hct 44.7 08/23/18 05:15: Sodium 141, Potassium 3.8, Chloride 108 H, Carbon Dioxide 25.0, Anion Gap 8, BUN 5 L, Creatinine 0.59, Est GFR (MDRD) Af Amer 140, Est GFR (MDRD) Non-Af 116, BUN/Creatinine Ratio 8.5 L, Glucose 147 H, Calcium 8.4 L, Triglycerides 162, Cholesterol 141, LDL Cholesterol 75, VLDL Cholesterol 32, HDL Cholesterol 34 L 08/23/18 05:15: WBC 11.6 H, RBC 4.76, Hgb 14.7, Hct 43.2, MCV 90.8, MCH 30.9, MCHC 34.0, RDW 12.8, RDW Differential 41.9, Plt Count 311, MPV 10.8 Rhythm: Sinus rhythm EKG: Sinus rhythm; no acute ECG changes Abdominal/pelvic CT scan: Reported as negative for any obvious vascular compro mise/hemorrhagic event Medical Necessity - Tobacco Use Smoking Status: Current some day smoker Tobacco Use: Cigarettes Assessment/Plan 1. NSTEMI The patient has undergone evaluation and care for a non-ST segment elevation [place]. This has included noninvasive studies including transthoracic echocardiogram as well as now invasive studies including diagnostic cardiac catheterization. The patient was found to have angiographically significant CAD in the LCx/OM distrib ution. She has subsequently undergone PCI. She will continue medical management. 2. CAD status post LCx/OM PCI The patient will continue medical therapy. She will need continued future outpatient cardiovascular follow-up and cardiac rehabilitation therapy. 3. Hyperlipidemia She will continue risk factor evaluation and care. 4. Prediabetes She readily admits she has not been monitoring her glucose levels. She is going to be evaluated by dietary/nutritional services. She will need continued evaluation care by her primary care physicians. 5. Hypothyroidism She will continue evaluation care by her primary care physicians. 6. Back discomfort Is undergone further evaluation and care. Based on concerns of any possible vascular compromise or hemorrhagic events she had a repeat H&H which was stable and an abdominal/pelvic CT scan which demonstrated no acute vascular compromise or hemorrhagic event. Thus her back discomfort may be related to her bedrest superimposed upon musculoskeletal discomfort. She appears to be symptomatically improved this morning after being up out of bed. Comment: The patient's case has been discussed and reviewed with the [facility] staff. This note was generated with [email or web address] software. It may contain incorrect words, spelling, and punctuation that were not noted in checking the note before signing.
--- NOTE | 2018-08-23 10:00 | EKG12_ITS ---
Test Reason : ADM CP EKG Blood Pressure : / mmHG Vent. Rate : 068 BPM Atrial Rate : 068 BPM P-R Int : 192 ms QRS Dur : 088 ms QT Int : 402 ms P-R-T Axes : 067 052 031 degrees QTc Int : 427 ms Normal sinus rhythm Normal ECG When compared with ECG of 24-AUG-2018 02:58, MANUAL COMPARISON REQUIRED, DATA IS UNCONFIRMED Confirmed by JAYY OLIVARES, BOB ([id number]), photograph editor ISRAEL JIMENEZ ([id number]) on 09/05/2018 2:55:18 PM Referred By: INGRID Confirmed By:BOB HOPE MD
--- NOTE | 2018-08-23 10:11 | CASEMGMT ---
Addendum entered by Ovidio Guerra 08/23/18 10:37: Call to [facility]. Glipizide copay is $2.00. Pt updated on medication change and need for blood glucose monitoring equipment. Evie BARROS Original Note: DENEEN CM Note: Viztoza is denied by the insurance per [facility]. Called to and spoke with rep who states this is nonformulary for her drug coverage. Covered medications not requiring prior auth are Lantus and Levemir. Call to Dr. Kendall to update and request made to check Glipizide. Per pt's insurance, this is covered and does not need prior auth. Dr. Kendall updated via text . -Katharine nurse updated re: med changes and script for blood glucose supplies printed and w/dc information. Evie HOSKINSM
[2018-08-23 11:20] LABS: Bedside Glucose 121 mg/dL (70-110)
== END 2018-08-23 15:56 | disposition home or self-care (01) | DRG 247 ==
LOC: ED 04:29 → PCU 05:33 → ICU 08-22 08:52 → PCU 08-22 14:05
PROVIDERS: Internal Medicine Cardiovascular Disease; Physician Assistant; Admitting Provider Hospitalist; Emergency Provider Emergency Medicine; Family Provider Family Medicine; PCP Family Medicine; Visit Provider Family Medicine
DX: I21.4 Non-ST elevation (NSTEMI) myocardial infarction (principal); I25.110 Atherosclerotic heart disease of native coronary artery with unstable angina pectoris; Z87.11 Personal history of peptic ulcer disease; K21.9 Gastro-esophageal reflux disease without esophagitis; E89.0 Postprocedural hypothyroidism; F17.210 Nicotine dependence, cigarettes, uncomplicated; E78.5 Hyperlipidemia, unspecified; E66.9 Obesity, unspecified; F41.9 Anxiety disorder, unspecified; Z68.39 Body mass index [BMI] 39.0-39.9, adult; J01.90 Acute sinusitis, unspecified; Z79.2 Long term (current) use of antibiotics; Z79.899 Other long term (current) drug therapy; E11.65 Type 2 diabetes mellitus with hyperglycemia; K58.1 Irritable bowel syndrome with constipation; G89.29 Other chronic pain; M54.9 Dorsalgia, unspecified
CPT/HCPCS: 36415; 71045; 74177; 80048; 80061; 81001; 82962; 83036; 84443; 84484; 85014; 85018; 85025; 85027; 85347; 85610; 85730; 87880; 92928; 93005; 93306; 93458; 94640; 97802; 99152; 99153; 99285; 99406; C1760; J7030; Q9957; Q9967; A4216; C1725; C1769; C1874; C1887; C1894; C9600; J2405

== ENCOUNTER 2018-08-24 02:53 | Observation (INO) | payer BC, SELFPAY ==
[2018-08-20 05:56] VITALS: BMI 38.2
[2018-08-24] VITALS (8 sets, daily range): BP systolic 101–132; BP diastolic 69–87; PULSE 69–82; RESP 14–19; TEMP 36.6–36.9; O2SAT 96–100; BMI 38.4; BMI 37.4
--- NOTE | 2018-08-24 03:08 | EKG12_ITS ---
Test Reason : Blood Pressure : / mmHG Vent. Rate : 065 BPM Atrial Rate : 065 BPM P-R Int : 192 ms QRS Dur : 088 ms QT Int : 418 ms P-R-T Axes : 072 075 032 degrees QTc Int : 434 ms Normal sinus rhythm Normal ECG Confirmed by AKI OLIVARES, KATE ([id number]), photo editor BELL YAN ([id number]) on 08/25/2018 1:43:05 PM Referred By: Confirmed By:KATE PRABHAKAR MD
--- NOTE | 2018-08-24 03:08 | RAD_ITS ---
STUDY: X-RAY CHEST REASON FOR EXAM: Female, 48 years old. Chest pain TECHNIQUE: Single AP portable view of the chest. COMPARISON: 08/20/2018 FINDINGS: The lungs are clear and expanded. There is no demonstrated pleural abnormality. Normal size heart. Normal mediastinum and dulce. Normal visualized pulmonary arteries. Normal visualized aortic arch and descending thoracic aorta. Normal visualized thoracic spine. Normal visualized ribs, clavicles, and shoulders. There is no demonstrated abnormality of the visualized soft tissue structures of the upper abdomen. RAD/Chest 1 View (Portable) IMPRESSION: Normal x-ray examination of the chest. Electronically Signed: Carlo Resendiz MD at 3:45 EDT Tel , Service support ,
--- NOTE | 2018-08-24 03:09 | ED.VIS.CHEST ---
History of Present Illness Chief Complaint: Chest Pain Informant: Patient Onset: Hours - 1 Activity at onset: Rest Timing: Continuous Quality: Aching, Dull Location: Left Chest Current Severity: Moderate Maximum Severity: Severe Worsened By: Breathing, Coughing Relieved By: Nothing Associated Symptoms: Nausea, Dyspnea - a little, only because it hurts to breathe; breathing OK now, Cough - for a week, Lightheadedness - gone. Negative for: Vomiting, Diaphoresis, Fever, Palpitations Narrative: States this is distinctly different than the angina she was having in the hospital. She just had a stent placed and was also told that she has diabetes to some degree and was put on new medicines including Plavix which she has taken. No leg pain or swelling. No injury. Cannot tell if it hurts worse to move around or not. Recent Illness/Hospitalization: Yes - d/c'd from this hosp 10 hrs ago s/p PCI - Past Medical History (1) Atherosclerotic heart disease of [place] coronary artery without angina pectoris Status: Chronic (2) HLD (hyperlipidemia) Status: Chronic (3) Hypothyroidism Status: Chronic (4) Prediabetes Status: Chronic Past Medical History - Allergies and Home Meds Allergies/Adverse Reactions: Allergies acetaminophen [From Vicodin] Adverse Reaction (Verified 08/20/18 03:46) Nausea hydrocodone [From Vicodin] Adverse Reaction (Verified 08/20/18 03:46) Nausea Primary Care Physician: Fabian Smith MD [Primary Care Provider] - Surgical History: angioplasty - coronary stent, appendectomy, hysterectomy, - - Partial thyroidectomy. Initially she had a right oophorectomy; and later hysterectomy with left oophorectomy. Lives: Spouse/ Significant Other Smoking Status: Current some day smoker - Family History Paternal Family History: Family History (Last Updated 08/20/18 @ 06:04 by Masoud Tapia MD) Mother M?ni?re's disease Father Chronic kidney disease Congestive heart failure (CHF) Diabetes Family History: Reports: No pertinent history - No family history of colon cancer in first-degree family relative Review of Systems General: Denies: Chills, Fever, Sweats Eyes: Denies: Visual changes - bilaterally, Diplopia ENT: Denies: Rhinorrhea, Sore throat Cardiovascular: Reports: Chest pain. Denies: Palpitations Respiratory: Reports: Dyspnea, Cough. Denies: Dyspnea on exertion Gastrointestinal: Reports: Nausea. Denies: Abdominal pain, Vomiting, Diarrhea, Melena, Hematochezia Genitourinary: Denies: Dysuria, Hematuria, Frequency Musculoskeletal: Denies: Back pain, Swelling, Extremity Pain Skin: Denies: Rash, Wounds Neurological: Denies: Headache, Weakness, Numbness Hematologic: Reports: Easy bruising. Denies: Lymphadenopathy Allergy: Denies: Swelling of the mouth, Swelling of the tongue Physical Exam Vital Signs/Narrative: Vital Signs Temp Pulse Resp BP Pulse Ox 08/24/18 02:54 98.5 F 82 19 H 131/87 H 98 Inital Vital Signs reviewed: Yes General: Well nourished, Well developed, No Acute Distress Head: Normocephalic, Atraumatic Eyes: Perrl, EOMI ENT: Moist mucous membranes, No rhinorrhea Neck: Supple, Nontender, No JVD Cardiovascular: Regular rate, Regular rhythm, No murmurs, Normal S1, Normal S2. Negative for: Tachycardia Respiratory: No distress, CTA bilaterally, Chest tenderness - left chest and inframammary, reproducing much of her pain Abdomen: Soft, Nondistended, Normal bowel sounds, Tender - epigastrium and also at ecchymoses lower left abd where lovenox injections given during recent admission. Negative for: Guarding, Rebound tenderness Back: Nontender, Normal Inspection Extremities: Nontender, No edema. Negative for: Calf Tenderness Skin: Normal color, No rash, No Trauma Neurological: Alert, Oriented x3, Cranial nerves II-XII grossly intact, Normal Strength, Normal Sensation Psychological: Normal affect, Normal Mood Diagnostic/Tx/Re-eval Impressions Chest X-Ray 08/24/18 03:08 IMPRESSION: Normal x-ray examination of the chest. Electronically Signed: Carlo Resendiz MD at 3:45 EDT Tel , Service support , 08/24/18 03:08 Chest 1 View (Portable) [RAD] Stat Laboratory Results 08/24/18 08/24/18 03:05 03:05 WBC 13.3 H RBC 4.78 Hgb 15.3 H Hct 43.5 MCV 91.0 MCH 32.0 MCHC 35.2 RDW 12.7 RDW Differential 42.6 Plt Count 334 MPV 10.5 Immature Gran % (Auto) 0.200 Neut % (Auto) 66.2 Lymph % (Auto) 25.4 [place] % (Auto) 7.1 Eos % (Auto) 0.9 Baso % (Auto) 0.2 Absolute Neuts (auto) 8.8 H Absolute Lymphs (auto) 3.38 Total Counted Not Reportable Sodium 140 Potassium 3.7 Chloride 107 Carbon Dioxide 25.0 Anion Gap 8 BUN 8 Creatinine 0.67 Estim Creat Clear Calc 84.94 Est GFR (MDRD) Af Amer 122 Est GFR (MDRD) Non-Af 101 BUN/Creatinine Ratio 12.0 Glucose 182 H Calcium 9.3 Troponin I 0.410 H - Rhythm Strip Rhythm Strip: Sinus Rhythm Rate: 74 Ectopy: None - EKG Initial EKG Interpretation: Sinus Rhythm, No Acute Injury Pattern - normal EKG Prior: Unchanged - Medical Decision Making EKG and chest x-ray are unremarkable, troponin is 0.4, which is trending down from her prior values which were over 1. She was initially given a dose of morphine which improved her pain and she was more comfortable. The rest of her work-up is unremarkable. Given that she was just discharged from the hospital and has no sign of DVT, I do not think this is a pulmonary embolus. I am concerned that she could have Sebastian's syndrome, and discussed this with Dr. Eldridge who agrees that is certainly a good possibility, and that it would be posada to admit her for an echocardiogram to rule out pericardial effusion that could be associated with it. He also approved of the patient getting a dose of Toradol, being that she is currently on Plavix. She felt a little better still with that but is still having some discomfort. She is clinically and hemodynamically stable with normal vital signs. ED Disposition - Plan for ED Patient: Disposition: Acute Care Hospital [facility] Diagnosis: Chest pain Referrals: Fabian Smith MD [Primary Care Provider] -
[2018-08-24] MEDS: Morphine 4 MG/ML Syringe IV (03:14)
[2018-08-24] MEDS: Ondansetron 4 MG/2 ML Vial IV (03:14)
[2018-08-24 03:32] LABS: Absolute Lymphocyte Count 3.38 X10^3/ul (0.83-4.51); Absolute Neutrophil Count 8.8 X10^3/uL (2.0-7.7); Basophil# 0.03 X10^3/uL; Basophil% 0.2 % (0-1); Eosinophil# 0.12 X10^3/uL; Eosinophils% 0.9 % (0-5); Hematocrit 43.5 % (37-47); Hemoglobin 15.3 g/dl (12.0-15.0); Lymphocyte # 3.38 X10^3/ul (4.0); Lymphocyte % 25.4 % (19-41); Mean Corp Hgb Conc 35.2 g/gl (32-36); Mean Platelet Vol. 10.5 fl (6.2-12.0); Monocyte# 0.95 X10^3/uL; Monocyte% 7.1 % (0-10); Neutrophil # 8.79 X10^3/uL (2.7-7.7); Neutrophil % 66.2 % (47-70); POSITIVE COUNT NO; POSITIVE DIFFERENTIAL NO; POSITIVE MORPHOLOGY NO; Platelet Count 334 K/mm3 (150-450); RBC Distribution Width CV 12.7 % (11.6-14.6); RBC Distribution Width SD 42.6 fl (35.1-43.9); Red Blood Count 4.78 M/mm3 (4.2-5.4); White Blood Count 13.3 K/mm3 (4.4-11.0)
[2018-08-24 03:36] LABS: Anion Gap 8 (5-15); BUN 8 mg/dL (7-18); Calcium,Total 9.3 mg/dL (8.5-10.1); Chloride 107 mmol/L (98-107); Creatinine, Serum 0.67 mg/dL (0.55-1.02); EST Glomerular Filtration Rate 101 mL/min (>60); Est Glom Filt Rate - Afr Amer 122 mL/min (>60); Estimated Creatinine Clearance 84.94 ml/min; Glucose 182 mg/dL (74-106); Potassium 3.7 mmol/L (3.5-5.1); Sodium Level 140 mmol/L (136-145)
[2018-08-24] MEDS: Ketorolac 30 MG/ML Syringe IV (05:18)
--- NOTE | 2018-08-24 05:54 | PCM.HP.STD ---
Problem List (1) Chest pain Status: Acute (2) Atherosclerotic heart disease of [place] coronary artery without angina pectoris Status: Chronic (3) S/P coronary artery stent placement Status: Chronic Comment: PTCA/DIMPLE to mid LCX 08/22/18 (4) Chest pain Status: Acute (5) Abnormal cardiac enzyme level Status: Acute (6) Angina pectoris Status: Acute (7) HLD (hyperlipidemia) Status: Chronic Qualifiers: Hyperlipidemia type: unspecified Qualified Code(s): E78.5 - Hyperlipidemia, unspecified (8) Prediabetes Status: Chronic (9) Hypothyroidism Status: Chronic (10) Lower GI bleed Status: Acute (11) Pancolitis Status: Acute History of Present Illness Date of Admission: 08/24/18 Chief Complaint: Chest pain today The patient is a 48 year old F with history of coronary artery status post PCI in 2 on 08/22 and was discharged yesterday came to ER on senior [employer] with chest pain. Patient stated she felt sharp pain in the left midsternal area with radiation to left breast when she woke up with cough. After that she had to 3 times dull chest pain. She has mild shortness of breath but she looks comfortable to me. Patient is also taking Augmentin with Mucinex for acute sinusitis. Patient has diabetes mellitus type 2 with A1c 7.3% and is on glipizide. Victoza was not approved last time. [] In the ER EKG shows normal sinus rhythm at 74 bpm. No change from previous EKG of 08/22 and 08/23. Past Medical History Past Medical History (Chronic Problems): Chronic Problems (Last Updated 08/23/18 @ 08:28 by Ambar Lew) Atherosclerotic heart disease of [place] coronary artery without angina pectoris (Chronic) S/P coronary artery stent placement (Chronic ~08/22/18) PTCA/DIMPLE to mid LCX 08/22/18 HLD (hyperlipidemia) (Chronic) Prediabetes (Chronic) Hypothyroidism (Chronic) Medical History: Medical History (Last Updated 08/23/18 @ 08:28 by Ambar Lew) Atherosclerotic heart disease of [place] coronary artery without angina pectoris (Chronic) I25.10 Allergies acetaminophen [From Vicodin] Adverse Reaction (Verified 08/20/18 03:46) Nausea hydrocodone [From Vicodin] Adverse Reaction (Verified 08/20/18 03:46) Nausea Home Medications: Ambulatory Orders Medication Instructions Recorded Levothyroxine [Synthroid] 125 mcg PO MOTUWETHFRSA 01/21/16 Amoxicillin/Potassium Clav 1 each PO BID 08/20/18 [Amox-Clav 875-125 mg Tablet] Fluticasone 0.05% [Flonase Nasal 1 spray NASAL DAILY 08/20/18 [place]] Ranitidine [Zantac] 150 mg PO DAILY 08/20/18 busPIRone [Buspar] 5 mg PO TID 08/20/18 Aspirin [Aspirin, Baby] 81 mg PO DAILY@0800 #30 tab.chew 08/23/18 Atorvastatin Calcium 80 mg PO QHS #30 tablet 08/23/18 Clopidogrel Bisulfate [Plavix] 75 mg PO DAILY #30 tablet 08/23/18 Glipizide 2.5 mg PO DAILY #30 tablet 08/23/18 Guaifenesin [Mucinex] 1,200 mg PO BID #20 tablet 08/23/18 Metoprolol Tartrate [Lopressor 50 mg PO BID #60 tablet 08/23/18 (beta demetria)] Nicotine [Nicoderm Cq] 21 mg TRANSDERM. DAILY #14 patch 08/23/18 Polyethylene Glycol 3350 [Miralax] 17 gm PO DAILY #30 packet 08/23/18 Surgical History: angioplasty - coronary stent, appendectomy, hysterectomy, - - Partial thyroidectomy. Initially she had a right oophorectomy; and later hysterectomy with left oophorectomy. Lives: Spouse/ Significant Other Smoking Status: Current some day smoker - *Family History Paternal Family History: Family History (Last Updated 08/20/18 @ 06:04 by Masoud Tapia MD) Mother M?ni?re's disease Father Chronic kidney disease Congestive heart failure (CHF) Diabetes History Items: No pertinent history - No family history of colon cancer in first-degree family relative Review of Systems Constitutional: Denies: Chills, Fever, Weight Change HEENT: Denies: Head Aches, Sinus Congestion, Sinus Drainage Cardiovascular: Reports: Chest Pain. Denies: Palpitations Respiratory: Reports: Cough. Denies: Shortness of breath at rest, Sputum production Gastrointestinal: Denies: Abdominal Pain, Nausea, Vomiting Genitourinary: Denies: Dysuria Musculoskeletal: Reports: - - Groin pain on right side at cardiac cath access site.. Denies: Joint Pain, Joint Tenderness Skin: Denies: Rash, Wounds Neurological: Denies: Numbness, Tingling, Focal weakness Psychiatric: Denies: Anxiety, Depression, Homicidal Ideations, Suicidal Ideations Hematologic/ Lymphatic: Denies: Easy Bruising, Easy Bleeding VTE Information - Inpt Only VTE Present on Admission: No VTE Mechan Device Prophylaxis: None VTE Pharm Prophylaxis ordered?: Yes Patient Problems: Active and Suspected Problems (Last Updated 08/23/18 @ 08:28 by Ambar Lew) Chest pain (Acute) Chest pain (Acute) - Physical Exam General: Alert, Oriented x3, Cooperative HEENT: Atraumatic, PERRLA, EOMI, Normocephalic Neck: Supple, No JVD, Negative Carotid Bruits Lungs: Clear to auscultation, Normal air movement Cardiovascular: Regular rate, Regular Rhythm, Normal S1, Normal S2, No murmurs Abdomen: Bowel Sounds Present, Soft, Non Tender Extremities: No edema, Capillary Refill Less than 3 Seconds Skin: No rashes, No breakdown Musculoskeletal: No Tenderness to Palpation of Joints or Extremities, Arthritic Changes, - - Tenderness over right cardiac cath exit site. No hematoma or active bleeding. No bruit auscultated Lymphatic: No Cervical, Supraclavicular, or Inguinal Adenopathy Neurological: Cranial nerves II-XII grossly intact, Deep Tendon Reflexes 2+/4 and Symmetrical, Neuro grossly intact Psych/Mental Status: Normal Affect, Appropriate Vital Signs Temp Pulse Resp BP Pulse Ox 98.5 F 69 14 132/76 H 96 08/24/18 02:54 08/24/18 05:15 08/24/18 05:15 08/24/18 05:15 08/24/18 05:15 Oxygen Delivery Method Room Air Weight: 216 lb 11.43 oz Body Mass Index (BMI) 38.4 Laboratory Tests Past 24 Hrs 08/24/18 08/24/18 03:05 03:05 WBC 13.3 H RBC 4.78 Hgb 15.3 H Hct 43.5 MCV 91.0 MCH 32.0 MCHC 35.2 RDW 12.7 RDW Differential 42.6 Plt Count 334 MPV 10.5 Immature Gran % (Auto) 0.200 Neut % (Auto) 66.2 Lymph % (Auto) 25.4 [place] % (Auto) 7.1 Eos % (Auto) 0.9 Baso % (Auto) 0.2 Absolute Neuts (auto) 8.8 H Absolute Lymphs (auto) 3.38 Total Counted Not Reportable Sodium 140 Potassium 3.7 Chloride 107 Carbon Dioxide 25.0 Anion Gap 8 BUN 8 Creatinine 0.67 Estim Creat Clear Calc 84.94 Est GFR (MDRD) Af Amer 122 Est GFR (MDRD) Non-Af 101 BUN/Creatinine Ratio 12.0 Glucose 182 H Calcium 9.3 Troponin I 0.410 H Assessment/Plan All Active Problems (Last Updated 08/23/18 @ 08:28 by Ambar Lew) Chest pain (Acute) Chest pain (Acute) Abnormal cardiac enzyme level (Acute) Angina pectoris (Acute) Lower GI bleed (Acute) Pancolitis (Acute) The patient is a 48 year old F with history of coronary artery status post PCI in OM 2 on 08/22 and was discharged yesterday came to ER on senior [employer] with chest pain. Patient stated she felt sharp pain in the left midsternal area with radiation to left breast when she woke up with cough. After that she had to 3 times dull chest pain. She has mild shortness of breath but she looks comfortable to me. Patient is also taking Augmentin with Mucinex for acute sinusitis. Patient has diabetes mellitus type 2 with A1c 7.3% and is on glipizide. Victoza was not approved last time. [] In the ER EKG shows normal sinus rhythm at 74 bpm. No change from previous EKG of 08/22 and 08/23. 1. Atypical chest pain after recent non-STEMI status post PCI: Patient is being admitted in PCU. Serial cardiac enzymes. First troponin 0 0.41 mostly secondary to recent cardiac cath and PCI to OM 2. OM2 was 85% stenosis. ER physician discussed with Dr. Eldridge and he agreed to see the patient. 2D echo ordered. Possible acute pericarditis secondary to non-STEMI/Sebastian syndrome: Patient reports chest pain better on sitting position. 2. Type 2 diabetes with obesity -A1c was 7.3 consistent with type 2 diabetes. Accu-Cheks before meals and at bedtime and cover with Humalog sliding scale insulin. Home medication glipizide continued. 3. Nicotine abuse - 1ppd x 30 years. Nicotine patch. 4. Recent acute sinusitis- Patient completed Augmentin on 08/23.. 5. Hypothyroidism - synthroid, TSH normal 6. Hx GERD, ulcers - continue protonix 7. HLD - statin 9. Anxiety - buspar DVT ppx: lovenox 40 mg subcu daily Code Visit OBSV E&M: [id number] Initial observation care L3
--- NOTE | 2018-08-24 06:23 | ECHOL_ITS ---
Reason For Study: Chest pain Procedure This was a limited 2D transthoracic echocardiogram. Limited views were obtained. Exam performed portable in patient room. Left Ventricle Normal LV size. Left ventricular systolic function is normal. The estimated ejection fraction is 60 %. Unable to assess diastolic dysfunction. No regional wall motion abnormalities noted. Right Ventricle Normal RV size. Normal systolic function. Atria Normal left atrium. Normal right atrium. Mitral Valve There is no mitral annular calcification. Normal mitral valve. Tricuspid Valve Normal tricuspid valve. Aortic Valve Trisinus/trileaflet aortic valve. Normal aortic valve. Pulmonic Valve The pulmonic valve is not well visualized. Great Vessels Normal sized aortic root. Pericardium/Pleural No pericardial effusion. MMode/2D Measurements & Calculations LVIDd: 4.6 cm IVSd: 0.91 cm Ao root diam: 3.2 cm LVIDs: 2.8 cm LVPWd: 1.0 cm FS: 38.2 % LA dimension(2D): 3.3 cm Interpretation Summary Limited views were obtained. Left ventricular systolic function is normal. The estimated ejection fraction is 60 %. No pericardial effusion. Unable to assess diastolic dysfunction. Ordering Physician: Zack Bardales Referring Physician: MD Fabian Smith Performed By: Adelaide [place] RDCS
--- NOTE | 2018-08-24 06:23 | EKG12_ITS ---
Test Reason : AM Blood Pressure : / mmHG Vent. Rate : 069 BPM Atrial Rate : 069 BPM P-R Int : 188 ms QRS Dur : 082 ms QT Int : 412 ms P-R-T Axes : 067 051 036 degrees QTc Int : 441 ms Normal sinus rhythm Nonspecific ST abnormality Abnormal ECG Confirmed by AKI OLIVARES, KATE ([id number]), editorial clerk BELL YAN ([id number]) on 08/25/2018 1:39:35 PM Referred By: Confirmed By:KATE PRABHAKAR MD
--- NOTE | 2018-08-24 07:25 | CT_ITS ---
STUDY: CTA CHEST REASON FOR EXAM: Female, 48 years old. Sharp left midsternal chest pain. History of recent heart catheterization and stent placement. RADIATION DOSAGE (If Supplied By Facility): CTDIvol = ( 14.93 ) mGy, DLP = ( 522.74 ) mGycm TECHNIQUE: The examination was performed with the intravenous administration of 100CC IV Isovue 370. Post-processing of the angiographic images was performed, with multiplanar reformation and 3D reconstruction. Individualized dose optimization techniques were used for this CT. COMPARISON: None. FINDINGS: Small bilateral axillary lymph nodes. Normal enhancement of the main pulmonary artery and right and left pulmonary arteries. Normal enhancement of the bilateral peripheral pulmonary arteries. There is no demonstrated pulmonary embolism. Normal thoracic aorta and visualized great vessels. There is no demonstrated aortic dissection. Normal heart and pericardium. Normal mediastinum. Normal hilar regions. Normal visualized trachea and bronchi. The lungs are well expanded. There is a 5.5 mm nodule in the lateral peripheral aspect of the right upper lobe as seen on axial image #102. There is a 2.7 cm x 2.8 cm bulla in the anterior right upper lobe. Normal pleura. Normal chest wall structures. Normal osseous structures. Findings suggestive of small bilateral adrenal adenomas. CT/CTA Chest W/WO Contrast IMPRESSION: Normal CTA chest examination, without a demonstrated pulmonary embolism or arterial dissection. 5.5 mm noncalcified nodule in the lateral peripheral aspect of the right upper lobe. A follow-up CT scan in 12 months is recommended. 2.7 cm x 2.8 cm bulla in the right upper lobe. Electronically Signed: Eligio Edwards, at 9:19 EDT , Service support ,
[2018-08-24] MEDS: Aspirin 81 MG TAB.CHEW PO (07:51)
[2018-08-24] MEDS: Levothyroxine 125 MCG Tablet PO (07:51)
[2018-08-24] MEDS: 0.9% Normal Saline 1,000 ML 100 ML IV (07:51)
[2018-08-24] MEDS: busPIRone 5 MG Tablet PO (07:51)
[2018-08-24] MEDS: glipiZIDE 5 MG Tablet 2.5 MG PO (07:51)
[2018-08-24 08:06] LABS: Bedside Glucose 140 mg/dL (70-110)
[2018-08-24] MEDS: Polyethylene Glycol 3350 17 GM PACKET PO (09:57)
[2018-08-24] MEDS: Metoprolol Tartrate 50 MG Tablet PO (09:57)
[2018-08-24] MEDS: Clopidogrel Bisulfate 75 MG Tablet PO (09:57)
[2018-08-24] MEDS: Famotidine 20 MG Tablet PO (09:57)
[2018-08-24] MEDS: guaiFENesin 1,200 MG Tablet 1200 MG PO (09:57)
[2018-08-24] MEDS: Enoxaparin 40 MG/0.4 ML Syringe SC (09:57)
--- NOTE | 2018-08-24 11:30 | PCM.DC ---
- Discharge Diagnoses Current Active Problems: Current Active and Chronic Problems (Last Updated 08/23/18 @ 08:28 by Ambar Lew) Chest pain (Acute) Chest pain (Acute) You will use the following diet at home:: Cardiac Your food should be the consistency of: Regular Your liquids should be the consistency of: Regular/Thin Discharge Activity: Return to Normal Activity Allergies/Adverse Reactions: Allergies acetaminophen [From Vicodin] Adverse Reaction (Verified 08/20/18 03:46) Nausea hydrocodone [From Vicodin] Adverse Reaction (Verified 08/20/18 03:46) Nausea Medications to take at Discharge Levothyroxine [Synthroid] 125 mcg PO DAILY 01/21/16 Fluticasone 0.05% [Flonase Nasal [place]] 1 spray NASAL DAILY 08/20/18 Ranitidine [Zantac] 150 mg PO DAILY 08/20/18 busPIRone [Buspar] 5 mg PO TID 08/20/18 Aspirin [Aspirin, Baby] 81 mg PO DAILY@0800 #30 tab.chew 08/23/18 Atorvastatin Calcium 80 mg PO QHS #30 tablet 08/23/18 Clopidogrel Bisulfate [Plavix] 75 mg PO DAILY #30 tablet 08/23/18 Glipizide 2.5 mg PO DAILY #30 tablet 08/23/18 Guaifenesin [Mucinex] 1,200 mg PO BID #20 tablet 08/23/18 Metoprolol Tartrate [Lopressor (beta demetria)] 50 mg PO BID #60 tablet 08/23/18 Nicotine [Nicoderm Cq] 21 mg TRANSDERM. DAILY #14 patch 08/23/18 Polyethylene Glycol 3350 [Miralax] 17 gm PO DAILY #30 packet 08/23/18 Primary Care Physician: Fabian Smith MD [Primary Care Provider] - Test Results: Test results from this visit will be discussed in further detail at your follow-up appointment, if applicable. Please Follow Up With: Isiah Eldridge MD When: as directed Please Follow Up With: Joao Pinto MD - COPD, pulmonary nodule. When: 2 weeks Proposed Discharge Date: 08/24/18
[2018-08-24] MEDS: Insulin Lispro 100 UNIT/ML INSULN.PEN SQ (12:43)
[2018-08-24 12:45] LABS: Bedside Glucose 159 mg/dL (70-110)
--- NOTE | 2018-08-24 13:10 | DS.PCM_ITS ---
Discharge Date and Diagnosis - Problem List Patient Problems: Active and Suspected Problems (Last Updated 08/23/18 @ 08:28 by Ambar Lew) Chest pain (Acute) Chest pain (Acute) Date of Admission: 08/24/18 Date of Discharge: 08/24/18 - Primary Discharge Diagnosis Active and Suspected Problems (Last Updated 08/23/18 @ 08:28 by Ambar Lew) Chest pain-musculoskeletal CAD with recent stent placement Suspected COPD Nicotine abuse Recent URI Pulmonary nodule Type 2 diabetes Hypothyroidism - Secondary Discharge Diagnosis Chronic Problems (Last Updated 08/23/18 @ 08:28 by Ambar Lew) Atherosclerotic heart disease of [place] coronary artery without angina pectoris (Chronic) S/P coronary artery stent placement (Chronic ~08/22/18) PTCA/DIMPLE to mid LCX 08/22/18 HLD (hyperlipidemia) (Chronic) Prediabetes (Chronic) Hypothyroidism (Chronic) Hospital Course and Treatment Imaging Results: 08/24/18 06:23 Echo, Limited Study [ECHO] Routine 08/24/18 07:25 CTA Chest W/WO Contrast [CT] Stat Consultations: Cardiology-[facility] Operations: None Procedures: 2-D Echocardiogram Summary of Care Provided: Hospital course: The patient is a 48 year old F with past medical history of above notable for discharge from the hospital the day prior to presentation after undergoing PTCA to the mid left circumflex on 08/22/2018. After going home she developed left sided chest pain described as sharp in the midsternal area with radiation to the left breast, worse with coughing. She had recently been diagnosed with sinusitis and had completed outpatient antibiotics and had ongoing cough. Troponin was indeterminate, felt likely to be elevated secondary to the recent non-STEMI. Chest x-ray was normal. EKG did not show new changes. She was admitted to the PCU on telemetry with cardiology on consultation. Troponin trended down, no events on telemetry, and cardiology felt that this was likely musculoskeletal, the pain was reproducible with palpation over the chest wall. An echocardiogram was obtained prior to discharge, results are pending at this time. She was discharged home in stable condition, she will need to follow-up with cardiology as previously directed, and follow-up with her PCP in 1 to 2 weeks. Also of note as part of her work-up. She underwent a CTA of the chest which did not show pulmonary emboli, however this did show bulla, and a pulmonary nodule. 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 This patient was seen by Benjy Rangel PA-C under the supervision of Doctor Enoch. [] Patient Problems: Active and Suspected Problems (Last Updated 08/23/18 @ 08:28 by Ambar Lew) Chest pain (Acute) Chest pain (Acute) - Physical Exam General: Alert, Oriented x3, Cooperative HEENT: Atraumatic, PERRLA, EOMI, Normocephalic Neck: Supple, No JVD, Negative Carotid Bruits Lungs: Clear to auscultation, Normal air movement Cardiovascular: Regular rate, No murmurs Abdomen: Bowel Sounds Present, Soft, Non Tender, Obese Extremities: No edema, Capillary Refill Less than 3 Seconds Skin: No rashes, No breakdown Musculoskeletal: No Tenderness to Palpation of Joints or Extremities Neurological: Cranial nerves II-XII grossly intact Psych/Mental Status: Normal Affect, Appropriate, Alert and oriented to time, place, person, mood and affect Vital Signs Temp Pulse Resp BP Pulse Ox 97.9 F 71 16 114/69 98 08/24/18 09:56 08/24/18 09:57 08/24/18 09:56 08/24/18 09:56 08/24/18 09:56 Oxygen Delivery Method Room Air Weight: 211 lb 3.2 oz Body Mass Index (BMI) 37.4 Intake and Output for Last 24 Hours 08/22/18 08/23/18 08/24/18 23:59 23:59 23:59 Intake Total 422 / 422 Balance 422 / 422 Laboratory Tests Past 24 Hrs 08/24/18 08/24/18 08/24/18 03:05 03:05 06:31 WBC 13.3 H RBC 4.78 Hgb 15.3 H Hct 43.5 MCV 91.0 MCH 32.0 MCHC 35.2 RDW 12.7 RDW Differential 42.6 Plt Count 334 MPV 10.5 Immature Gran % (Auto) 0.200 Neut % (Auto) 66.2 Lymph % (Auto) 25.4 [place] % (Auto) 7.1 Eos % (Auto) 0.9 Baso % (Auto) 0.2 Absolute Neuts (auto) 8.8 H Absolute Lymphs (auto) 3.38 Total Counted Not Reportable Sodium 140 Potassium 3.7 Chloride 107 Carbon Dioxide 25.0 Anion Gap 8 BUN 8 Creatinine 0.67 Estim Creat Clear Calc 84.94 Est GFR (MDRD) Af Amer 122 Est GFR (MDRD) Non-Af 101 BUN/Creatinine Ratio 12.0 Glucose 182 H Calcium 9.3 Troponin I 0.410 H C-React Prot Ext Range 34.50 H 08/24/18 08/24/18 06:50 09:31 WBC RBC Hgb Hct MCV MCH MCHC RDW RDW Differential Plt Count MPV Immature Gran % (Auto) Neut % (Auto) Lymph % (Auto) [place] % (Auto) Eos % (Auto) Baso % (Auto) Absolute Neuts (auto) Absolute Lymphs (auto) Total Counted Sodium Potassium Chloride Carbon Dioxide Anion Gap BUN Creatinine Estim Creat Clear Calc Est GFR (MDRD) Af Amer Est GFR (MDRD) Non-Af BUN/Creatinine Ratio Glucose Calcium Troponin I 0.430 H 0.372 H C-React Prot Ext Range POC Glucose 08/24/18 08/24/18 12:40 07:48 POC Glucose 159 H 140 H Discharge Diet: Low fat/ Low Cholesterol, 1800 Calorie Control Diet, 2000 mg Sodium Diet Discharge Activity: Return to Normal Activity Home Medications: Medications to take at Discharge Levothyroxine [Synthroid] 125 mcg PO DAILY 01/21/16 Fluticasone 0.05% [Flonase Nasal [place]] 1 spray NASAL DAILY 08/20/18 Ranitidine [Zantac] 150 mg PO DAILY 08/20/18 busPIRone [Buspar] 5 mg PO TID 08/20/18 Aspirin [Aspirin, Baby] 81 mg PO DAILY@0800 #30 tab.chew 08/23/18 Atorvastatin Calcium 80 mg PO QHS #30 tablet 08/23/18 Clopidogrel Bisulfate [Plavix] 75 mg PO DAILY #30 tablet 08/23/18 Glipizide 2.5 mg PO DAILY #30 tablet 08/23/18 Guaifenesin [Mucinex] 1,200 mg PO BID #20 tablet 08/23/18 Metoprolol Tartrate [Lopressor (beta demetria)] 50 mg PO BID #60 tablet 08/23/18 Nicotine [Nicoderm Cq] 21 mg TRANSDERM. DAILY #14 patch 08/23/18 Polyethylene Glycol 3350 [Miralax] 17 gm PO DAILY #30 packet 08/23/18 Primary Care Physician: Fabian Smith MD [Primary Care Provider] - Please Follow Up With: Isiah Eldridge MD When: as directed Please Follow Up With: Joao Pinto MD - COPD, pulmonary nodule. When: 2 weeks Disposition: Home Minutes spent on discharge:: 35 Patient Condition:: Stable Medical Necessity - Tobacco Use Smoking Status: Current some day smoker Tobacco Use: Cigarettes Meaningful Use Info Meaningful Use Diagnoses (Choose all that apply): None applicable
--- NOTE | 2018-08-24 19:17 | PCM.CONS.C ---
Problem List (1) Chest pain Status: Acute (2) CAD (coronary artery disease) Status: Acute Qualifiers: Coronary Disease-Associated Artery/Lesion type: [place] artery [place] vs. transplanted heart: [place] heart (3) S/P coronary artery stent placement Status: Chronic Comment: PTCA/DIMPLE to mid LCX 08/22/18 (4) HLD (hyperlipidemia) Status: Chronic Qualifiers: Hyperlipidemia type: unspecified Qualified Code(s): E78.5 - Hyperlipidemia, unspecified (5) Prediabetes Status: Chronic (6) Hypothyroidism Status: Chronic Reason for Consult Date of Consultation: 08/24/18 History of Present Illness: The patient is a 48 year old white female who was evaluated earlier this day for concerns of chest discomfort status post a recent diagnosis of underlying CAD, acute non-ST segment elevation CT, status post recent LCx/OM PTCA/DIMPLE, superimposed on hyperlipidemia, prediabetes , and hypothyroidism. The patient was evaluated and underwent diagnostic cardiac catheterization on 08/22/2018. This led to her diagnosis of CAD and subsequent LCx PTCA/DIMPLE. She was monitored in the hospital overnight during which she complained of back discomfort and had follow-up H&H and abdominal/pelvic CT scan performed which demonstrated no obvious evidence of vascular compromise/hemorrhage. She was subsequently released home yesterday. She presented back with concerns of continued symptoms of pharyngitis and chest discomfort. She states her chest discomfort was somewhat sharp and left-sided and more pronounced with coughing and/or deep inspiration. It was also reproducible on examination. As she was unsure whether this was noncardiac or cardiac she elected to present back to the emergency department for evaluation. There she had a troponin I level performed which was noted to be decreasing compared to previous levels. Her ECG demonstrated sinus rhythm with no acute ECG changes. There was concern as to whether or not she could have an underlying pericarditis. Thus she was brought back into the hospital for further evaluation. There was also concern her symptoms could be related to an underlying respiratory tract related infection/pleuritic infection as well as notation of the need to exclude thromboembolic disease such as pulmonary emboli. The patient subsequently underwent further evaluation with a transthoracic echocardiogram. This demonstrated her left ventricular wall motion systolic function to be preserved. There was no evidence of underlying acute pericardial disease/effusion. A chest CT scan was performed which demonstrated no evidence of thromboembolic disease or great vessel disease. A CRP level was performed which was elevated. She denied any ongoing acute positional changes. She denied any orthopnea or PND or worsening peripheral pitting edema. There was no near syncope or syncope. She was treated in the emergency department with IV Toradol. She states after receiving IV Toradol she had improvement in her symptoms. [] Past Medical History Allergies/Adverse Reactions: Allergies acetaminophen [From Vicodin] Adverse Reaction (Verified 08/20/18 03:46) Nausea hydrocodone [From Vicodin] Adverse Reaction (Verified 08/20/18 03:46) Nausea Home Medications: Ambulatory Orders Medication Instructions Recorded Levothyroxine [Synthroid] 125 mcg PO DAILY 01/21/16 Fluticasone 0.05% [Flonase Nasal 1 spray NASAL DAILY 08/20/18 [place]] Ranitidine [Zantac] 150 mg PO DAILY 08/20/18 busPIRone [Buspar] 5 mg PO TID 08/20/18 Aspirin [Aspirin, Baby] 81 mg PO DAILY@0800 #30 tab.chew 08/23/18 Atorvastatin Calcium 80 mg PO QHS #30 tablet 08/23/18 Clopidogrel Bisulfate [Plavix] 75 mg PO DAILY #30 tablet 08/23/18 Glipizide 2.5 mg PO DAILY #30 tablet 08/23/18 Guaifenesin [Mucinex] 1,200 mg PO BID #20 tablet 08/23/18 Metoprolol Tartrate [Lopressor 50 mg PO BID #60 tablet 08/23/18 (beta demetria)] Nicotine [Nicoderm Cq] 21 mg TRANSDERM. DAILY #14 patch 08/23/18 Polyethylene Glycol 3350 [Miralax] 17 gm PO DAILY #30 packet 08/23/18 Past Medical History (Chronic Problems): Chronic Problems (Last Updated 08/23/18 @ 08:28 by Ambar Lew) Atherosclerotic heart disease of [place] coronary artery without angina pectoris (Chronic) S/P coronary artery stent placement (Chronic ~08/22/18) PTCA/DIMPLE to mid LCX 08/22/18 HLD (hyperlipidemia) (Chronic) Prediabetes (Chronic) Hypothyroidism (Chronic) Surgical History: angioplasty - coronary stent, appendectomy, hysterectomy, - - Partial thyroidectomy. Initially she had a right oophorectomy; and later hysterectomy with left oophorectomy. - *Family History Paternal Family History: Family History (Last Updated 08/20/18 @ 06:04 by Masoud Tapia MD) Mother M?ni?re's disease Father Chronic kidney disease Congestive heart failure (CHF) Diabetes History Items: No pertinent history - No family history of colon cancer in first-degree family relative Lives: Spouse/ Significant Other Smoking Status: Current some day smoker Tobacco Use: Cigarettes Alcohol: None Drugs: None Review of Systems - Review of Systems General: Denies: Fever, Night Sweats, Fatigue Cardiovascular: Reports: Chest Discomfort, Chest Discomfort at Rest. Denies: Shortness of Breath, Orthopnea, PND, Peripheral Edema, Palpitations, Lightheadedness, Dizziness, Near Syncope, Syncope Respiratory: Reports: Cough. Denies: Hemoptysis Gastrointestinal: Denies: Hematemesis, Hematochezia, Melena Genitourinary: Denies: Dysuria, Hematuria Skin: Denies: Rash Subjectve: Is a pleasant 48-year-old white female who appears to be resting comfortably in no acute distress. Objective: Vital Signs Temp Pulse Resp BP Pulse Ox 98.1 F 69 16 105/70 100 08/24/18 14:30 08/24/18 14:30 08/24/18 14:30 08/24/18 14:30 08/24/18 14:30 Oxygen Delivery Method Room Air Weight: 211 lb 3.2 oz Body Mass Index (BMI) 37.4 Intake and Output for Last 24 Hours 08/22/18 08/23/18 08/24/18 23:59 23:59 23:59 Intake Total 422 / 422 Balance 422 / 422 General: Awake, Alert, Oriented x 3, Cooperative, No Acute Distress, Obese HEENT: Atraumatic, Normocephalic, PERRL, EOMI, Sclera Non Icteric Oral: Moist Mucosa Neck: Supple, Good ROM, No JVD Lungs: Clear to auscultation Cardiovascular: Regular Rhythm, Normal S1, Normal S2 Vascular: No Carotid Bruits, Normal Femoral Pulses Abdomen: Bowel Sounds Present, Soft, Non Tender Extremities: No Cyanosis, No Clubbing, No edema Neurological: No Focal Motor or Sensory Deficit Psych/Mental Status: Appropriate 08/24/18 03:05: WBC 13.3 H, RBC 4.78, Hgb 15.3 H, Hct 43.5, MCV 91.0, MCH 32.0, MCHC 35.2, RDW 12.7, RDW Differential 42.6, Plt Count 334, MPV 10.5, Immature Gran % (Auto) 0.200, Neut % (Auto) 66.2, Lymph % (Auto) 25.4, [place] % (Auto) 7.1, Eos % (Auto) 0.9, Baso % (Auto) 0.2, Absolute Neuts (auto) 8.8 H, Total Counted Not Reportable 08/24/18 03:05: Sodium 140, Potassium 3.7, Chloride 107, Carbon Dioxide 25.0, Anion Gap 8, BUN 8, Creatinine 0.67, Est GFR (MDRD) Af Amer 122, Est GFR (MDRD) Non-Af 101, BUN/Creatinine Ratio 12.0, Glucose 182 H, Calcium 9.3, Troponin I 0.410 H 08/24/18 06:50: Troponin I 0.430 H 08/24/18 09:31: Troponin I 0.372 H Rhythm: Sinus rhythm EKG: As noted above ECHO: As noted above CXR: Preliminary evaluation: No acute cardiopulmonary disease process: Please see official report Chest CT Scan: As noted above: Please see official report Assessment/Plan 1. Chest pain The patient presents with chest pain. Based upon her symptoms it appears to be compatible with an underlying musculoskeletal/pleuritic type chest discomfort. There is no definitive evidence based upon her history or examination or her ECG to suggest an acute pericarditis syndrome/Sebastian's type syndrome. It may be related to her underlying respiratory tract related illness, coughing, and pleuritic discomfort. She has not been found to have any obvious great vessel disease or thromboembolic disease. Thus at the present time she will continue noncardiac evaluation of her symptoms per internal medicine. 2. CAD status post non-ST segment elevation CT status post LCx PTCA/DIMPLE At the present time she will continue cardiovascular risk factor evaluation and medical therapy as deemed appropriate. She is already scheduled for future outpatient cardiovascular follow-up and exercise tolerance test/imaging study to evaluate the physiology of her right coronary artery and whether or not she may need a future RCA percutaneous intervention. 3. Hyperlipidemia She will continue lipid-lowering therapy. 4. Prediabetes She will continue under the care of her primary care physician. 5. Hypothyroidism She will continue medical management under the care of her primary care physician. Comment: The patient's case was discussed and reviewed with the patient and Dr. Kendall of the [facility] staff. This note was generated using a voice recognition system and there may be incorrect words, spelling or punctuation that were not noted when reviewing the office note prior to saving.
== END 2018-08-24 11:31 | disposition home or self-care (01) ==
LOC: ED 05:34 → PCU 06:17
PROVIDERS: Admitting Provider Internal Medicine; Emergency Provider Emergency Medicine; Family Provider Family Medicine; PCP Family Medicine; Visit Provider Family Medicine
DX: R07.89 Other chest pain (principal); R11.0 Nausea; R06.00 Dyspnea, unspecified; I25.10 Atherosclerotic heart disease of native coronary artery without angina pectoris; E78.5 Hyperlipidemia, unspecified; E03.9 Hypothyroidism, unspecified; E11.9 Type 2 diabetes mellitus without complications; J01.90 Acute sinusitis, unspecified; I25.2 Old myocardial infarction; K21.9 Gastro-esophageal reflux disease without esophagitis; Z79.899 Other long term (current) drug therapy; Z79.02 Long term (current) use of antithrombotics/antiplatelets; Z79.82 Long term (current) use of aspirin; Z79.84 Long term (current) use of oral hypoglycemic drugs; Z79.51 Long term (current) use of inhaled steroids; E66.9 Obesity, unspecified; Z68.37 Body mass index [BMI] 37.0-37.9, adult; Z71.3 Dietary counseling and surveillance; K58.1 Irritable bowel syndrome with constipation; F17.210 Nicotine dependence, cigarettes, uncomplicated
CPT/HCPCS: 36415; 71045; 71275; 80048; 82962; 84484; 85025; 86140; 93005; 93308; 96361; 96372; 96374; 96375; 99218; 99284; J7030; Q9967; A4216; G0378; J2405

== ENCOUNTER → 2018-09-06 | Outpatient (CLI) | payer BC, SELFPAY ==
[2018-08-24 09:05] VITALS: BMI 38.4
--- NOTE | 2018-09-06 13:13 | CR.HP_ITS ---
CR - History & Physical - General Arrival date:: 09/06/18 Arrival time:: 12:00 Date of Referral:: 08/26/18 Referring Physician: Primary Diagnosis: PCI with stent - History of Present Cardiac Event Onset Date: Enter Onset Date of cardiac illnesses in Comment field below Current stable Angina Pectoris:: Yes - 08/14/18 PTCA or coronary stenting:: Yes Type of Symptoms:: Ingestion and dull pain Interventions with present event:: heart cath w/stent and stress test 09/06/2018 Were there any complications?: none - Medications Home Medications: Ambulatory Orders Medication Instructions Recorded Levothyroxine [Synthroid] 125 mcg PO DAILY 01/21/16 Fluticasone 0.05% [Flonase Nasal 1 spray NASAL DAILY 08/20/18 [place]] Ranitidine [Zantac] 150 mg PO DAILY 08/20/18 busPIRone [Buspar] 5 mg PO TID 08/20/18 Aspirin [Aspirin, Baby] 81 mg PO DAILY@0800 #30 tab.chew 08/23/18 Atorvastatin Calcium 80 mg PO QHS #30 tablet 08/23/18 Clopidogrel Bisulfate [Plavix] 75 mg PO DAILY #30 tablet 08/23/18 Glipizide 2.5 mg PO DAILY #30 tablet 08/23/18 Guaifenesin [Mucinex] 1,200 mg PO BID #20 tablet 08/23/18 Nicotine [Nicoderm Cq] 21 mg TRANSDERM. DAILY #14 patch 08/23/18 Polyethylene Glycol 3350 [Miralax] 17 gm PO DAILY #30 packet 08/23/18 atenolol 50 mg tablet 50 mg PO DAILY 09/05/18 - Allergies Allergies/Adverse Reactions: Allergies acetaminophen [From Vicodin] Adverse Reaction (Verified 08/20/18 03:46) Nausea hydrocodone [From Vicodin] Adverse Reaction (Verified 08/20/18 03:46) Nausea - Sleep Disorder Evaluation Hx of Sleep Apnea: Yes Do you snore loudly (louder than talking or can be heard through closed doors)?: Yes Do you often feel tired/ fatigued/ sleepy during daytime?: Yes Has anyone observed you stop breathing during sleep?: Yes History of Hypertension (for STOP score): Yes - on CPAP at night but has not been wearing she has an appointment October [address] John CHAVEZ Results: Positive Advanced Directives - Advanced Directives Power of Photographer Apprentice: No - has Knowlegde of her wishes. Living Will: No Advance Directives Information Provided: No Advance Directives on File: No DNR Order?:: Yes - MOLST See MOLST form: Yes Past Medical History - Past Medical Illness Medical History: Past Medical History (Last Updated 08/23/18 @ 08:28 by Ambar Lew) Atherosclerotic heart disease of [place] coronary artery without angina pectoris (Chronic) I25.10 - Past Surgical History Surgical History: angioplasty - coronary stent, appendectomy, hysterectomy, - - Partial thyroidectomy. Initially she had a right oophorectomy; and later hysterectomy with left oophorectomy. - Family History Summary Family History: Family History (Last Updated 08/20/18 @ 06:04 by Masoud Tapia MD) Mother M?ni?re's disease Father Chronic kidney disease Congestive heart failure (CHF) Diabetes Social History - Smoking History Smoking Status: Former smoker Years Smokin Packs Smoked per Day: 1 Hx Tobacco Use: Yes Hx Smoking Exposure: Yes - Alcohol Use Alcohol Usage: No - Substance Abuse Hx Substance Use: No - Occupation Occupation (List type of work in comments):: Employed - [employer] Hours worked per day:: 40 - Hobbies, Recreation, Social Activities Hobbies: Watch TV, Other - % kumar Recreational Activities: I am able to engage in most, but not all activities Social Environment - Status Marital Status: - Current Living Arrangements Living Environment:: Spouse - Children How many children do you have?: 2 Do any of your children live nearby?: Yes - Daughter - Safety Do you feel safe in your surroundings?: Yes - Assistance Do you need any assistance at home?: no Review of Systems - Review of Systems Hints: Right click = Denies ([place]). Left click = Reports ([place]) Review of Present Symptoms: Reports: Shortness of Breath with Exertion, Dizziness/Lightheadedness, Heart Arrhythmia/Irregularities, Appetite - Special Diet - Trying to avoid salt and sugar. Denies: Shortness of Breath at Rest - Pain Is Patient Pain Free?: Yes Pain Location: chest, upper extremity Pain Level: 10 - She had a stress stress today and had pain her doctor is aware and has been told she has two more blockages one 50% and one 25%. Risk Factor Assessment - Chief Complaint Chief Complaint: PCI in August with more chest pain - Vital Signs Temperature: 98.2 F Respiratory Rate: 21 Pulse Ox: 97 Blood Pressure: 117/59 - Pulse Pulse Rate: 81 Pulse Rhythm: Regular - Hypertension How long have you been treated?: since August On medication(s)?: Atenolol 50mg - Stress Stress: Recent - Blood Cholesterol/Lipids Total Cholesterol (mg/dL) Goal = less than 200 mg/dL: 141 HDL Cholesterol (mg/dL) Goal = less than 40 mg/dL: 34 LDL Cholesterol (mg/dL) Goal = less than 70 mg/dL: 75 Triglycerides (mg/dL) Goal = less than 150 mg/dL: 162 - Diabetes Diabetic History: Medication Dependent - Pre diabetic at this time 7.2 A1C - Obesity Height: 1.6 m Weight:: 95.708 kg Weight in Pounds: 211.0 lbs Weight Source: Estimated by Patient Body Mass Index (BMI): 37.3 Nutritional Referral for Obesity: Yes - Physical Inactivity Physical Inactivity: None - Risk Stratification Risk Guidelines: Lowest Risk: Risk Factor for Smoking, Risk Factor for Hypertension, Risk Factor for Depression, Moderate Risk: Risk Factor for Dyslipidemia, Risk Factor for Diabetes, Risk Factor for Sedentary Lifestyle, Highest Risk: Risk Factor for Obesity - For Smoking Smoking Risk Guidelines: Smoking Low Risk: None or quit greater than 6 months ago. Smoking Moderate Risk: Smoker or quit 6 months or less ago. Smoking High Risk: Smoker - For Dyslipidemia Dyslipidemia Risk Guidelines: Low Risk: Moderate Risk: High Risk: 15-25% fat 25.1-29% fat >/= 30% fat. <7% sat fat 7-9% sat fat >9% sat fat. <150 mg chol 150-299 mg chol >/= 300 mg chol. LDL <100 LDL 100-129 LDL >/= 130. Chol/HDL ratio <5.0 Chol/HDL ratio 5.0-6.0 Chol/HDL ratio >6.0. Triglycerides <100 Triglycerides 100-149 Triglycerides >/= 150 - For Diabetes Mellitus Diabetes Risk Guidelines: Diabetes Low Risk: HgA1c <6.5% and/or FBG <120. Diabetes Moderate Risk: HgA1c 6.6-7.9% and/or FBG 120-180. Diabetes High Risk: HgA1c >/= 8% and/or FBG >180 - For Obesity/Overweight Obesity/Overweight Risk Guidelines: Obesity Low Risk: BMI <25.0. Obesity Moderate Risk: BMI 25-29.9. Obesity High Risk: BMI >/= 30.0 - For Hypertension Hypertension Risk Guidelines: Hypertension Low Risk: Systolic <120 and Diastolic <80. Hypertension Moderate Risk: Systolic 120-139 and Diastolic 80-89. Hypertension High Risk: Systolic >/= 140 and Diastolic >/= 90 - For Sedentary Lifestyle Sedentary Lifestyle Risk Guidelines: Sedentary Lifestyle Low Risk: >/= 1,500 kcal/week. Sedentary Lifestyle Moderate Risk: 700-1,499 kcal/week. Sedentary Lifestyle High Risk: < 700 kcal/week - For Depression Depression Risk Guidelines: Depression Low Risk: Not clinically depressed. Depression Moderate Risk: Mildly depressed. Depression High Risk: Clinically depressed - Family History Family History: Family History (Last Updated 08/20/18 @ 06:04 by Masoud Tapia MD) Mother M?ni?re's disease Father Chronic kidney disease Congestive heart failure (CHF) Diabetes Motivation - Motivation to Participate On a scale of 1 to 10, how prepared are you to commit to attending program?: 8 What do you see as barriers to successfully being able to complete the program?: 8 What do you see as the benefits of succesfully completing the program? In other words, what do you hope to get out of participating in the program?: 10 Are there issues you are dealing with that will interfere with completing the program?: 10 Do you have a spouse or signficant other, family or friends who will help support you to complete the program?: 10
[2018-09-06 13:40] VITALS: BP 117/59; PULSE 81; RESP 21; TEMP 36.8; O2SAT 97; BMI 37.3
--- NOTE | 2018-09-06 13:48 | CR.ITP_ITS ---
General Information - General Information Admitting Diagnosis: PCI with stent - Education/Goals Barriers to Learning: None Individual Counseling: Initial Assessment: Nicotine/Smoking, Abnormal Cholesterol Levels, High Blood Pressure, Overweight/Obesity, Diabetes, Metabolic Syndrome (as evidenced by 3 of 5 A-E below), A. Fasting Blood Sugar >100, B. Waist Circumference >35/Females >40/Males, C. High Triglycerides >150, Hypertension, Low HDL <40/Males or <50/Females, Stress - recent health Cardiac Rehabilitation Goals: 1. Maintain the individual as the primary focus of care. 2. To improve the patient's quality of life. 3. Identification of cardiac risk factors and provide cardiac risk factor management. 4. Enhance the psychosocial status of the patient. 5. Reconditioning enough to allow the patient to resume customary activities. 6. Control symptoms of cardiac disease Scale for measuring improvement of personal goals: Enter appropriate number in Comments. 2 = Unchanged. 3 = Slightly Better. 4 = Moderate Improvement. 5 = Met my Goal Personal Goals: Initial Assessment: Improve management of stress and emotions, Improve energy level, Participate in home exercise program, Get back to work, or to resume activities faster, Improve knowledge of cardiac disease, Improve muscle strength and endurance, Improve diet and eating habits (eat healthier), Control risk factors (learn risk factor modification) Exercise - Initial Assessment - Visit Date of Eval: 09/06/18 - Stages of Change Stages of Change:: Action - Stress Test Date: 09/06/18 - pending result - Physician Prescribed Exercise Modalities: Treadmill, Rower, Airdyne, NuStep, SciFit Frequency (days/week): 3x/week for 12 weeks [36 sessions] Duration (Minutes):: 30-45 Intensity: 60-80% age predicted maximum heart rate reserve METs - Progression: 0.5-1.0 MET, RPE 11-14 WEEK: 2.5 Target Heart Rate:: 112-146 - Hypertension Do any of the following apply?: Medication Resting Blood Pressure:: 117/56 - Intervention Home Exercise/Activity Goal:: Moderate Exercise 30 min/day x 5 days/wk - Education Goals:: Warm-up, RPE JOSEP Scale, S/S, Safe Exercise, Self-Monitoring - Exercise Program Goals Exercise Program Goals: Aerobic Activity >30 min Nutrition - Initial Assessment - Program Goals Nutrition Program Goals: LDL <70. Total Cholesterol <200. HDL >45. Triglycerides <150. HgbA1C <7%. BMI <25 - Visit Date of Assessment:: 09/06/18 - Stages of Change Stages of Change:: Action - Lipids Total Cholesterol (mg/dL) Goal = less than 200 mg/dL: 141 HDL Cholesterol (mg/dL) Goal = less than 45 mg/dL: 34 LDL Cholesterol (mg/dL) Goal = less than 70 mg/dL: 75 Triglycerides (mg/dL) Goal = less than 150 mg/dL: 162 - Diabetes Diabetes:: Yes Hgb A1C: 7.2 Insulin: No Non-Insulin Dependent?: Yes Do you monitor your blood sugar at home?: Yes - Weight Management Height: 1.6 m Weight:: 95.708 kg Body Fat %:: 38 - Intervention Referral to dietitian:: Yes Referral to Diabetic Clinic:: Yes Will attend diet classes:: Yes - Education Gave educational materials for:: Signs & symptoms of hypoglycemia, Signs & symptoms of hyperglycemia, Relate diabetes to coronary artery disease, Healthy eating Tobacco - Initial Assessment - Program Goals Tobacco Program Goals: Complete smoking cessation. Attend education classes. Improve Knowledge Test score - Stage of Change Stages of Change:: Action - Learning Barriers Learning Barriers: Ready to Learn - Family Support Do you have family support?: Yes - Tobacco Use Tobacco Use: Cigarettes How long ago did you quit using tobacco products?: Less than 6 months ago How many cigarettes do you smoke per day?: 0 - 1ppd Years Smokin - Intervention Smoking Cessation Referral:: No Individual Education/Counseling:: No Education Schedule Given:: Yes - Education Gave educational material for:: Coronary artery disease, Risk factors, Sexuali ty, Medical compliance, Cardiac A&P, Angina signs & symptoms Psychosocial - Initial Assess - Target Goals Target Goals: Assess presence or absence of depression. Using a valid screening tool, maximizes coping skills. Positive support system - Stages of Change Stages of Change:: Action - Psychosocial Test Tool Used:: HANDS Depression Questionnaire - Intervention PS - Interventions: Yes Attend Stress Management Classes, No Referral to Mental Health, No Referral to [facility] Case Management, No Referral to Physician, No Uses Stress Management Skills - Education Gave educational materials for:: Coping techniques, Signs & symptoms of depression, Stress management, Relaxation techniques - Patient/Program Goal Preventative Medication(s):: Aspirin, Clopidogrel, Beta demetria, Statin/lipid - Assistive Devices Assistive Devices:: None Fall Risk Assessed:: No Patient Health Questionnaire Initial Assessment 1. Little interest or pleasure in doing things: More than half the days 2. Feeling down, depressed, or hopeless: Several days 3. Trouble falling or staying asleep, or sleeping too much: Nearly every day 4. Feeling tired or having little energy: Nearly every day 5. Poor appetite or overeating: More than half the days 6. Feeling bad about yourself -- or that you are a failure or have let yourself or your family down: Several days 7. Trouble concentrating on things, such as reading the newspaper or watching television: Not at all 8. Moving or speaking so slowly that other people could have noticed. Or the opposite - being so fidgety or restless that you have been moving around a lot more than usual: Not at all 9. Thoughts that you would be better off , or of hurting yourself in some way: Not at all How difficult have these problems made it for you to do your work, take care of things at home, or get along with other people?: Somewhat difficult Total Score: 12 TATI-Q SV Test - Statements CAD is a disease of the arteries in the heart: I Don't Know Examples of risk factors for heart disease: True Angina is chest pain or discomfort: I Don't Know The benefits of resistance training include: True Eating more meat and dairy products: I Don't Know Anti-platelet medications such as aspirin are important: True The only effective way to manage stress: False An exercise warm-up slowly increases heart rate: I Don't Know Prepared, processed foods usually have high sodium: True Depression is common after a heart attack: I Don't Know The statin medications lower cholesterol: True To control blood pressure, lower the amount of sodium: I Don't Know If someone gets chest discomfort during walking: I Don't Know Transfats are partially hydrogenated vegetable oils: True Sleep apnea that is not treated increases the risk: False To control cholesterol, one should become a vegetarian: I Don't Know Someone knows if he/she is exercising at the right level: I Don't Know Diabetes cannot be prevented with exercise & health eating: False Stress is a large risk for heart attack: True A diet that can help lower blood pressure is rich in: True - Total Score Total Correct Responses: 11 Self-Efficacy Initial Assessment We would like to know how confident you are in doing certain activities. Please select your confidence level for:: Select your confidence level for the following using the scale 1-10 where 1 is not at all confident and 10 is totally confident. Your score is the average of all 6 responses. Fatigue: How confident are you that you can keep the fatigue caused by your disease from interfering with the things you want to do? Select Number: 4 Physical Discomfort or Pain: How confident are you that you can keep the physical discomfort or pain of your disease from interfering with the things you want to do? Select Number: 4 Emotional Distress: How confident are you that you can keep the emotional distress caused by your disease from interfering with the things you want to do? Select Number: 3 Other Symptoms or Health Problems: How confident are you that you can keep other symptoms or health problems from interfering with the things you want to do? Select Number: 5 Different Tasks and Activities: How confident are you that you can do the different tasks and activities needed to manage your health condition so as to reduce your need to see a doctor? Select Number: 5 Medication: How confident are you that you can do things other than just taking medication to reduce how much your illness affects your everyday life? Select Number: 6 Total Score:: 4
[2018-09-06 14:01] VITALS: BP 117/56
--- NOTE | 2018-09-06 14:02 | STRESSREP ---
Stress Test Report Date: Procedure: Pharmacologic stress nuclear imaging study Indications: Chest pain; CAD; PCI Consent: Per the patient Procedure: The patient underwent pharmacologic (Regadenoson) evaluation with a peak heart rate of 110 beats per minute (63 %predicted maximal heart rate) and a peak blood pressure of 122/64 mmHg. The baseline ECG demonstrated sinus rhythm. The peak pharmacologic ECG demonstrated no obvious ECG changes. There were no cardiac dysrhythmias pretest, during pharmacologic infusion, or recovery. The patient noted chest discomfort pretest, during infusion, and recovery without obvious change. The examination was discontinued secondary to completion of protocol. Impression: 1. Pharmacologic (Regadenoson) evaluation 2. Peak pharmacologic ECG with no obvious ECG changes. 3. There were no cardiac dysrhythmias pretest, during pharmacologic infusion, or recovery. 4. Nuclear images pending Myocardial perfusion imaging study: Technique: The patient was injected with 14.6 millicuries of technetium 99m Cardiolite and subsequently rest SPECT Cardiolite nuclear imaging was obtained in the horizontal long, vertical long, and short axis views. The patient underwent pharmacologic (Regadenoson) evaluation with a peak heart rate of 110 beats per minute (63 % percent predicted maximal heart rate) and a peak blood pressure of 122/64 mmHg. The patient was injected with 44.1 millicuries of technetium 99m Cardiolite and subsequently stress SPECT Cardiolite nuclear imaging was obtained in the horizontal long, vertical long, and short axis views. A gated Cardiolite study at peak stress was obtained. Interpretation: Rest and stress SPECT Cardiolite nuclear imaging status post realignment, normalization, and attenuation correction demonstrate the appearance of subtle diminished tracer uptake in portions of the mid to distal anterior, anteroseptal, and anterior apical segments without significant change between rest and stress.. There is end systolic thickening and brightening. The gated Cardiolite study demonstrates myocardial thickening and inward wall motion. The reported LVEF is 7 and he %. Impression: 1. And stress SPECT currently nuclear imaging demonstrate myocardial perfusion changes appearing compatible defects of soft tissue attenuation/breast attenuation/artifact with no myocardial perfusion changes consider diagnostic for associated stress-induced myocardial ischemia or previous myocardial injury/infarction. 2. The gated Cardiolite study reports an LVEF of 70 %. This note was generated with [employer] software. It may contain incorrect words, spelling, and punctuation that were not noted in checking the note before signing.
== END | disposition home or self-care (01) ==
LOC: CR 06:28
PROVIDERS: Family Provider Family Medicine; PCP Family Medicine; Referring Provider Internal Medicine Cardiovascular Disease; Visit Provider Internal Medicine Cardiovascular Disease
DX: Z95.5 Presence of coronary angioplasty implant and graft (principal)

== ENCOUNTER → 2018-09-06 | Outpatient (CLI) | payer BC, SELFPAY ==
[2018-08-24 09:05] VITALS: BMI 38.4
== END | disposition home or self-care (01) ==
LOC: CVS 06:26
PROVIDERS: Family Provider Family Medicine; PCP Family Medicine; Referring Provider Internal Medicine Cardiovascular Disease; Visit Provider Internal Medicine Cardiovascular Disease
DX: I25.10 Atherosclerotic heart disease of native coronary artery without angina pectoris (principal); R07.9 Chest pain, unspecified; Z95.5 Presence of coronary angioplasty implant and graft
CPT/HCPCS: 78452; 93017; A9500; A4216; J2785

== ENCOUNTER 2018-09-28 15:53 | Outpatient (RCR) | payer BC, SELFPAY ==
[2018-09-16 10:03] VITALS: BMI 37.5
== END 2018-09-28 23:59 | disposition home or self-care (01) ==
LOC: DC 15:53
PROVIDERS: Family Provider Family Medicine; PCP Family Medicine; Visit Provider Internal Medicine Cardiovascular Disease
DX: E11.9 Type 2 diabetes mellitus without complications (principal); I25.10 Atherosclerotic heart disease of native coronary artery without angina pectoris; E78.5 Hyperlipidemia, unspecified; E03.9 Hypothyroidism, unspecified; Z71.3 Dietary counseling and surveillance
CPT/HCPCS: 97802

== ENCOUNTER 2018-09-30 15:15 | Outpatient (RCR) | payer BC, SELFPAY ==
[2018-09-06 13:40] VITALS: BMI 37.3
== END 2018-10-02 23:59 ==
LOC: CR 15:15
PROVIDERS: Family Provider Family Medicine; PCP Family Medicine; Referring Provider Internal Medicine Cardiovascular Disease; Visit Provider Internal Medicine Cardiovascular Disease
DX: I25.10 Atherosclerotic heart disease of native coronary artery without angina pectoris (principal); Z95.5 Presence of coronary angioplasty implant and graft
CPT/HCPCS: 93798

== ENCOUNTER → 2018-10-27 | Outpatient (CLI) | payer BC, SELFPAY ==
[2018-10-25 08:04] VITALS: BMI 37.8
--- NOTE | 2018-10-27 14:45 | PFTCOMP_ITS ---
COMPLETE PULMONARY FUNCTION TEST INTERPRETATION Brief HPI: Patient is a 48 year old female, currently under the care of myself, who presents to [facility] for complete pulmonary function tests secondary to diagnosis of dyspnea. Respiratory therapist reports good effort and reproducible results. Interpretation: Forced expiration spirometry shows no large airways obstructive ventilatory defect with an FEV1 of 77% predicted. There is no significant bronchodilator response by strict ATS criteria. Spirograms are of good quality and plateau normally. The respiratory flow volume loop shows a normal pattern. Lung volumes by body plethysmography show a normal total lung capacity at 4.91 L, 102% predicted. All other lung volumes are within normal limits. Diffusion capacity by carbon monoxide is at the lower limit of normal at 79% predicted. The airway resistance is normal. No previous pulmonary function tests were available for review. Impression: These pulmonary function tests are within normal limits. Diffusing capacity is at the lower limit of normal, so cannot exclude an early pulmonary vascular disease.
== END | disposition home or self-care (01) ==
LOC: PSN 09:59
PROVIDERS: Family Provider Family Medicine; PCP Family Medicine; Referring Provider Internal Medicine Critical Care Medicine; Visit Provider Internal Medicine Critical Care Medicine
DX: R06.00 Dyspnea, unspecified (principal)
CPT/HCPCS: 94060; 94726; 94729

== ENCOUNTER 2018-10-31 15:15 | Outpatient (RCR) | payer BC, SELFPAY ==
[2018-09-16 10:03] VITALS: BMI 37.5
--- NOTE | 2018-10-05 12:58 | CR.ITP_ITS ---
Exercise - 30-day Assessment - Visit Date of Eval: 10/05/18 Session #:: 10 - STARTED CR ON 09/09/2018 - Stages of Change Stages of Change:: Action - Physician Prescribed Exercise Modalities: Treadmill, Rower, SciFit Frequency (days/week): 3 Duration (Minutes):: 30-45 Intensity: 60-80% age predicted maximum heart rate reserve METs - Progression: 0.5-1.0 MET, RPE 11-14 WEEK: 4 Target Heart Rate:: 112-146 WITH MAX hr 119 - Hypertension Resting Blood Pressure:: 124/80 Peak Exercise Blood Pressure:: 154/80 Medication Changes:: No - Intervention Home Exercise/Activity Goal:: Moderate Exercise 30 min/day x 5 days/wk - Education Goals:: Warm-up, RPE JOSEP Scale, S/S, Safe Exercise, Self-Monitoring - Exercise Program Goals Exercise Program Goals: Aerobic Activity >30 min - BACK TO WORK Nutrition - Initial Assessment - Program Goals Nutrition Program Goals: LDL <70. Total Cholesterol <200. HDL >45. Triglycerides <150. HgbA1C <7%. BMI <25 - Diabetes Do you monitor your blood sugar at home?: Yes Nutrition - 30-Day Assessment - Program Goals Nutrition Program Goals: LDL <70. Total Cholesterol <200. HDL >45. Triglycerides <150. HgbA1C <7%. BMI <25 - Visit Date of Eval: 10/05/18 - Stages of Change Stages of Change:: Action - Lipids Has the patient seen the dietitian?: Yes - 09/28/2018 @ 4:00 PM - Diabetes Diabetes:: No Insulin: No Non-Insulin Dependent?: No - Weight Management Weight:: 212 lb - STABLE; JOINING [employer] WEIGHT LOSS - Intervention Referral to dietitian:: Yes Referral to Diabetic Clinic:: No Will attend diet classes:: No - Education Attended class for:: Healthy eating Tobacco - Initial Assessment - Program Goals Tobacco Program Goals: Complete smoking cessation. Attend education classes. Improve Knowledge Test score - Learning Barriers Learning Barriers: Ready to Learn Tobacco - 30-Day Assessment - Program Goals Tobacco Program Goals: Complete smoking cessation. Attend education classes. Improve Knowledge Test score - Stage of Change Stages of Change:: Action - Learning Barriers Learning Barriers: Participates in education, Change in behavior - Family Support Do you have family support?: Yes - qUIT SMOKING AT TIME OF HOSPITALIZATION AND HAS NOT SMOKED A CIGARETTE !!! - Tobacco Use Tobacco Use: Cigarettes Date quit:: 08/22/18 Do you use smokeless tobacco?: No - Intervention Smoking Cessation Referral:: No - PATIENT IS AWARE OF COUNSELING IF SHE REQUIRES ASSISTANCE AT ANY TIME Individual Education/Counseling:: No Education Schedule Given:: No - Education Attended class for:: Coronary artery disease, Risk factors, Sexuality, Medical compliance, Cardiac A&P, Angina signs & symptoms Psychosocial - Initial Assess - Target Goals Target Goals: Assess presence or absence of depression. Using a valid screening tool, maximizes coping skills. Positive support system - Psychosocial Test Tool Used:: HANDS Depression Questionnaire - Assistive Devices Fall Risk Assessed:: No Psychosocial - 30-Day Assess - Target Goals Target Goals: Assess presence or absence of depression. Using a valid screening tool, maximizes coping skills. Positive support system - Stages of Change Stages of Change:: Action - Psychosocial Test Tool Used:: HANDS Depression Questionnaire - Intervention PS - Interventions: Yes Attend Stress Management Classes, No Referral to Mental Health, No Referral to [facility] Case Management, No Referral to Physician, No Uses Stress Management Skills - Education Attended classes for:: Coping techniques, Signs & symptoms of depression, Stress management, Relaxation techniques - Patient/Program Goal Preventative Medication(s):: Aspirin, Clopidogrel, Beta demetria, Statin/lipid - Assistive Devices Assistive Devices:: None Fall Risk Assessed:: Yes Patient Health Questionnaire 30-Day Re-eval Assessment 1. Little interest or pleasure in doing things: Several days 2. Feeling down, depressed, or hopeless: Not at all 3. Trouble falling or staying asleep, or sleeping too much: More than half the days 4. Feeling tired or having little energy: More than half the days 5. Poor appetite or overeating: Several days 6. Feeling bad about yourself -- or that you are a failure or have let yourself or your family down: Not at all 7. Trouble concentrating on things, such as reading the newspaper or watching television: Not at all 8. Moving or speaking so slowly that other people could have noticed. Or the opposite - being so fidgety or restless that you have been moving around a lot more than usual: Not at all 9. Thoughts that you would be better off , or of hurting yourself in some way: Not at all How difficult have these problems made it for you to do your work, take care of things at home, or get along with other people?: Somewhat difficult Total Score: 6 Self-Efficacy 30-Day Re-eval Assessment We would like to know how confident you are in doing certain activities. Please select your confidence level for:: Select your confidence level for the following using the scale 1-10 where 1 is not at all confident and 10 is totally confident. Your score is the average of all 6 responses. Fatigue: How confident are you that you can keep the fatigue caused by your disease from interfering with the things you want to do? Select Number: 6 Physical Discomfort or Pain: How confident are you that you can keep the physical discomfort or pain of your disease from interfering with the things you want to do? Select Number: 6 Emotional Distress: How confident are you that you can keep the emotional dist ress caused by your disease from interfering with the things you want to do? Select Number: 7 Other Symptoms or Health Problems: How confident are you that you can keep other symptoms or health problems from interfering with the things you want to do? Select Number: 8 Different Tasks and Activities: How confident are you that you can do the different tasks and activities needed to manage your health condition so as to reduce your need to see a doctor? Select Number: 7 Medication: How confident are you that you can do things other than just taking medication to reduce how much your illness affects your everyday life? Select Number: 6 Total Score:: 6
[2018-10-05 13:04] VITALS: BP 124/80; BP 154/80
== END 2018-11-02 23:59 ==
LOC: CR 15:15
PROVIDERS: Family Provider Family Medicine; PCP Family Medicine; Referring Provider Internal Medicine Cardiovascular Disease; Visit Provider Internal Medicine Cardiovascular Disease
DX: I25.10 Atherosclerotic heart disease of native coronary artery without angina pectoris (principal); Z95.5 Presence of coronary angioplasty implant and graft
CPT/HCPCS: 93798

== ENCOUNTER → 2018-11-01 | Outpatient (CLI) | payer BC, SELFPAY ==
[2018-10-25 08:04] VITALS: BMI 37.8
[2018-11-01 08:40] VITALS: PULSE 61; PULSE 65; PULSE 75; PULSE 80; PULSE 82; PULSE 83; PULSE 84; PULSE 87; O2SAT 96; O2SAT 97; O2SAT 98
--- NOTE | 2018-11-02 08:04 | PCM.PSN.6M ---
PSN 6 Minute Walk Test - 6 Minute Walk Test 6 Minute Walk Test: 6 Minute Walk Test PSN:6-Minute Walk Test Start: 11/01/18 08:56 Freq: Status: Active Protocol: [id number] Document 11/01/18 08:40 [facility] (Rec: 11/01/18 08:59 [facility] [id number]) 6 Minute Walk Test Date Performed 11/01/18 Time Performed 08:40 Height 5 ft 3 in Weight: 212 lb Weight in Pounds 212.[address]: Joao Pinto Assistive device used: None Pre-test Oxygen Delivery Method Room Air Pulse Ox (%) 98 Pulse Rate (60-100 beats/min) 61 Dyspnea Randall Scale (0-10) 0.5 Exertion Randall Scale (6-20) 6 1st minute Oxygen Delivery Method Room Air Pulse Ox (%) 96 Pulse Rate (60-100 beats/min) 75 Number of Rests Taken 0 2nd minute Oxygen Delivery Method Room Air Pulse Ox (%) 97 Pulse Rate (60-100 beats/min) 87 Number of Rests Taken 0 3rd minute Oxygen Delivery Method Room Air Pulse Ox (%) 96 Pulse Rate (60-100 beats/min) 82 Number of Rests Taken 0 4th minute Oxygen Delivery Method Room Air Pulse Ox (%) 96 Pulse Rate (60-100 beats/min) 84 Number of Rests Taken 0 5th minute Oxygen Delivery Method Room Air Pulse Ox (%) 97 Pulse Rate (60-100 beats/min) 80 Number of Rests Taken 0 6th minute Oxygen Delivery Method Room Air Pulse Ox (%) 98 Pulse Rate (60-100 beats/min) 83 Number of Rests Taken 0 Post-test Oxygen Delivery Method Room Air Pulse Ox (%) 98 Pulse Rate (60-100 beats/min) 65 Dyspnea Randall Scale (0-10) 2 Exertion Randall Scale (6-20) 12 Number of Rests Taken 0 Full Laps Walked 16 Partial Lap, Number of Tiles Walked 40 Total Distance Walked (ft) 984 - Interpretation Interpretation: The patient ambulated 984 feet over the course of 6 minutes beginning on room air without assistive devices or breaks. Pretesting oxygen saturation was noted to be 98% on room air. With ambulation, the elza oxygen saturation was 96%. There was no significant exertional oxygen desaturation. - Recommendations Recommendations: There is no indication for the use of supplemental oxygen at this time.
== END | disposition home or self-care (01) ==
LOC: PSN 08:28
PROVIDERS: Family Provider Family Medicine; PCP Family Medicine; Referring Provider Internal Medicine Critical Care Medicine; Visit Provider Internal Medicine Critical Care Medicine
DX: R06.00 Dyspnea, unspecified (principal); R91.1 Solitary pulmonary nodule
CPT/HCPCS: 94618

== ENCOUNTER 2018-11-28 14:58 | Emergency (ER) | payer BC, SELFPAY ==
[2018-10-25 08:04] VITALS: BMI 37.8
[2018-11-28 14:59] VITALS: BP 134/78; PULSE 66; RESP 16; TEMP 36.6; O2SAT 97; BMI 37.8
--- NOTE | 2018-11-28 15:11 | VDUE_ITS ---
Reason For Study: swelling Right Proximal Left Proximal Right jugular vein is spontaneous, widely Left subclavian vein is spontaneous, widely patent, phasic, with no intraluminal patent, phasic, with no intraluminal echogenicity noted. echogenicity noted. Right subclavian vein is spontaneous, widely patent, phasic, with no intraluminal echogenicity noted. Right Lower Arm Right radial vein is compressible. Right ulnar vein is compressible. Right Arm Right axillary vein is spontaneous, patent, phasic, competent, compressible and demonstrates augmentation. Right brachial vein is compressible. Right cephalic vein is compressible. Right basilic vein is compressible. Interpretation Summary Deep veins of the right upper extremity are patent and compressible segmentally. There is no evidence of deep vein thrombosis. The superficial veins of the right upper extremity, the basilic and cephalic veins, are patent and compressible. There is no evidence of right upper extremity superficial thrombophlebitis involving the veins imaged. Ordering Physician: Kwame Cruz Referring Physician: Fabian Smith Performed By: Lesley Ortiz, JAD, RVT ?
--- NOTE | 2018-11-28 15:17 | ED.VIS.GEN ---
History of Present Illness Chief Complaint: Upper Extremity Injury Informant: Patient Onset: Today Current Severity: Mild Maximum Severity: Mild Narrative: The patient presents with localized swelling of the right upper extremity. The patient had an [place] in August. She is been on Plavix. She noticed a 1 cm circumferential area of bruising on the volar aspect of her right forearm today. She has not had any other increased swelling. She cannot recall any definitive trauma. She went to cardiac rehab and was sent over due to concern for blood clot. She has no history of clot. She is otherwise been in her normal state of health. She denies any chest pain shortness of breath. Prior similar symptoms: No Recent Illness/Hospitalization: Yes Past Medical History - Allergies and Home Meds Allergies/Adverse Reactions: Allergies metoprolol Adverse Reaction (Severe, Verified 11/28/18 14:59) cough acetaminophen [From Vicodin] Adverse Reaction (Verified 11/28/18 14:59) Nausea hydrocodone [From Vicodin] Adverse Reaction (Verified 11/28/18 14:59) Nausea Primary Care Physician: Fabian Smith MD [Primary Care Provider] - Prior records reviewed: Yes Past Medical History: - Surgical History: angioplasty - coronary stent, appendectomy, hysterectomy, - - Partial thyroidectomy. Initially she had a right oophorectomy; and later hysterectomy with left oophorectomy. Smoking Status: Former smoker - Family History Paternal Family History: Family History (Last Reviewed 10/25/18 @ 11:09 by Doreen Davis) Mother M?ni?re's disease Father Chronic kidney disease Congestive heart failure (CHF) Diabetes Family History: Reports: No pertinent history - No family history of colon cancer in first-degree family relative Review of Systems General: Denies: Chills, Fever, Sweats Eyes: Denies: Visual changes - bilaterally, Diplopia ENT: Denies: Rhinorrhea, Sore throat Cardiovascular: Denies: Chest pain, Palpitations Respiratory: Denies: Dyspnea, Cough, Dyspnea on exertion Gastrointestinal: Denies: Abdominal pain, Nausea, Vomiting, Diarrhea, Melena, Hematochezia Genitourinary: Denies: Dysuria, Hematuria, Frequency Musculoskeletal: Denies: Back pain, Extremity Pain Skin: Denies: Rash, Wounds Neurological: Denies: Headache, Weakness, Numbness Physical Exam Vital Signs/Narrative: Vital Signs Temp Pulse Resp BP Pulse Ox 11/28/18 14:59 97.9 F 66 16 134/78 H 97 Inital Vital Signs reviewed: Yes General: Well nourished, Well developed, No Acute Distress Head: Normocephalic, Atraumatic Eyes: Perrl, EOMI ENT: Moist mucous membranes, No rhinorrhea Neck: Supple, Nontender Cardiovascular: Regular rate, Regular rhythm, No murmurs Respiratory: No distress, CTA bilaterally, Chest nontender Abdomen: Soft, Nontender, Nondistended, Normal bowel sounds Back: Nontender, Normal Inspection Extremities: No edema, Tenderness - 1 cm circumferential hematoma in the volar aspect of the forearm. Normal pulses. Compartments soft. No cellulitis. No diffuse edema. Skin: Normal color, No rash Neurological: Alert, Oriented x3, Cranial nerves II-XII grossly intact, Normal Strength, Normal Sensation Psychological: Normal affect, Normal Mood Diagnostic/Tx/Re-eval - Medical Decision Making Ultrasound was obtained of the upper extremity. There is no evidence of thrombosis. Again, my suspicion is for small hematoma as the patient is also on Plavix. She is resting comfortably. She was counseled on concerning symptoms and reasons to return. The patient will be discharged home. Impression 1. Right forearm hematoma 1 cm ED Disposition - Plan for ED Patient: Instructions: Hematoma Referrals: Fabian Smith MD [Primary Care Provider] -
== END 2018-11-28 16:03 | disposition home or self-care (01) ==
LOC: ED 15:14
PROVIDERS: Emergency Provider Emergency Medicine; Family Provider Family Medicine; PCP Family Medicine
DX: S50.11XA Contusion of right forearm, initial encounter (principal); I25.2 Old myocardial infarction; Z79.02 Long term (current) use of antithrombotics/antiplatelets; Z87.891 Personal history of nicotine dependence; X58.XXXA Exposure to other specified factors, initial encounter; Y93.89 Activity, other specified; Y92.89 Other specified places as the place of occurrence of the external cause; Y99.8 Other external cause status
CPT/HCPCS: 93971; 99282

== ENCOUNTER 2018-11-30 15:15 | Outpatient (RCR) | payer BC, SELFPAY ==
[2018-10-25 08:04] VITALS: BMI 37.8
[2018-11-03 00:57] VITALS: BP 124/80; BP 154/80
--- NOTE | 2018-11-04 10:00 | CR.ITP_ITS ---
Exercise - 60-Day Assessment - Visit Date of Eval: 11/04/18 Session #:: 20 - patient has missed 5 scheduled sessions - Stages of Change Stages of Change:: Action - Physician Prescribed Exercise Modalities: Treadmill, NuStep, SciFit Frequency (days/week): 3 Duration (Minutes):: 30-45 Intensity: 60-80% age predicted maximum heart rate reserve METs - Progression: 0.5-1.0 MET, RPE 11-14 WEEK: 5.1 Target Heart Rate:: 112-146 - Hypertension Resting Blood Pressure:: 102/60 Peak Exercise Blood Pressure:: 128/74 Medication Changes:: No - Intervention Home Exercise/Activity Goal:: Moderate Exercise 30 min/day x 5 days/wk - Education Goals:: Warm-up, RPE JOSEP Scale, S/S, Safe Exercise, Self-Monitoring - Exercise Program Goals Exercise Program Goals: Aerobic Activity >30 min Nutrition - Initial Assessment - Program Goals Nutrition Program Goals: LDL <70. Total Cholesterol <200. HDL >45. Triglycerides <150. HgbA1C <7%. BMI <25 - Diabetes Do you monitor your blood sugar at home?: Yes Nutrition - 60-Day Assessment - Program Goals Nutrition Program Goals: LDL <70. Total Cholesterol <200. HDL >45. Triglyceri che <150. HgbA1C <7%. BMI <25 - Visit Date of Eval: 11/04/18 - Stages of Change Stages of Change:: Action - Lipids Has the patient seen the dietitian?: No - Diabetes Diabetes:: Yes Non-Insulin Dependent?: Yes - Weight Management Weight:: 213 lb - unchanged - Intervention Referral to dietitian:: No - Seen Dietitian on 09/28/2018 Referral to Diabetic Clinic:: No Will attend diet classes:: Yes - Education Attended class for:: Signs & symptoms of hypoglycemia, Signs & symptoms of hyperglycemia, Relate diabetes to coronary artery disease, Healthy eating Tobacco - Initial Assessment - Program Goals Tobacco Program Goals: Complete smoking cessation. Attend education classes. Improve Knowledge Test score - Learning Barriers Learning Barriers: Ready to Learn Tobacco - 60-Day Assessment - Program Goals Tobacco Program Goals: Complete smoking cessation. Attend education classes. Improve Knowledge Test score - Stage of Change Stages of Change:: Action - Learning Barriers Learning Barriers: Participates in education - Family Support Do you have family support?: Yes - Tobacco Use Tobacco Use: Non-smoker Do you use smokeless tobacco?: No - Intervention Smoking Cessation Referral:: No Education Schedule Given:: Yes - Education Attended class for:: Treating Heart Disease, How The Heart Works, What it means to have Heart Disease, How Coronary Artery Disease is Diagnosed, Heart Procedure s, What Heart Medications Do, Risk Factors & Modifications, Living an Active Life, Nutrition, Emotions & Heart Disease, Stress Management & Relaxation, Sleep Disorders & Heart Disease Psychosocial - Initial Assess - Target Goals Target Goals: Assess presence or absence of depression. Using a valid screening tool, maximizes coping skills. Positive support system - Psychosocial Test Tool Used:: HANDS Depression Questionnaire - Assistive Devices Fall Risk Assessed:: Yes Psychosocial - 60-Day Assess - Target Goals Target Goals: Assess presence or absence of depression. Using a valid screening tool, maximizes coping skills. Positive support system - Stages of Change Stages of Change:: Action - Psychosocial Test Tool Used:: HANDS Depression Questionnaire - Intervention PS - Interventions: Yes Attend Stress Management Classes, Yes Uses Stress Management Skills, No Referral to Mental Health, No Referral to [facility] Case Management, No Referral to Physician - Education Attended classes for:: Coping techniques, Signs & symptoms of depression, Stress management, Relaxation techniques - Patient/Program Goal Preventative Medication(s):: Aspirin, KRISTEL inhibitor, Clopidogrel, Beta edmetria, Statin/lipid - Assistive Devices Assistive Devices:: None Fall Risk Assessed:: Yes Patient Health Questionnaire 60-Day Re-eval Assessment 1. Little interest or pleasure in doing things: Not at all 2. Feeling down, depressed, or hopeless: Not at all 3. Trouble falling or staying asleep, or sleeping too much: Not at all 4. Feeling tired or having little energy: Not at all 5. Poor appetite or overeating: Not at all 6. Feeling bad about yourself -- or that you are a failure or have let yourself or your family down: Not at all 7. Trouble concentrating on things, such as reading the newspaper or watching television: Not at all 8. Moving or speaking so slowly that other people could have noticed. Or the opposite - being so fidgety or restless that you have been moving around a lot more than usual: Not at all 9. Thoughts that you would be better off , or of hurting yourself in some way: Not at all Total Score: 0 Self-Efficacy 60-Day Re-eval Assessment We would like to know how confident you are in doing certain activities. Please select your confidence level for:: Select your confidence level for the following using the scale 1-10 where 1 is not at all confident and 10 is totally confident. Your score is the average of all 6 responses. Fatigue: How confident are you that you can keep the fatigue caused by your disease from interfering with the things you want to do? Select Number: 10 Physical Discomfort or Pain: How confident are you that you can keep the physical discomfort or pain of your disease from interfering with the things you want to do? Select Number: 10 Emotional Distress: How confident are you that you can keep the emotional distress caused by your disease from interfering with the things you want to do? Select Number: 10 Other Symptoms or Health Problems: How confident are you that you can keep other symptoms or health problems from interfering with the things you want to do? Select Number: 10 Different Tasks and Activities: How confident are you that you can do the different tasks and activities needed to manage your health condition so as to reduce your need to see a doctor? Select Number: 10 Medication: How confident are you that you can do things other than just taking medication to reduce how much your illness affects your everyday life? Select Number: 10 Total Score:: 10
[2018-11-04 10:05] VITALS: BP 102/60; BP 128/74
== END 2018-12-03 23:59 ==
LOC: CR 15:15
PROVIDERS: Family Provider Family Medicine; PCP Family Medicine; Referring Provider Internal Medicine Cardiovascular Disease; Visit Provider Internal Medicine Cardiovascular Disease
DX: I25.10 Atherosclerotic heart disease of native coronary artery without angina pectoris (principal); Z95.5 Presence of coronary angioplasty implant and graft
CPT/HCPCS: 93798

== ENCOUNTER 2018-12-09 09:17 | Emergency (ER) | payer BC, SELFPAY ==
[2018-12-09 09:18] VITALS: BP 145/82; PULSE 69; RESP 16; TEMP 36.1; O2SAT 100; BMI 39.4
--- NOTE | 2018-12-09 09:30 | EKG12_ITS ---
Test Reason : CP Blood Pressure : / mmHG Vent. Rate : 058 BPM Atrial Rate : 058 BPM P-R Int : 196 ms QRS Dur : 088 ms QT Int : 398 ms P-R-T Axes : 072 042 045 degrees QTc Int : 390 ms Sinus bradycardia Otherwise normal ECG Confirmed by MCKENZIE SEWELL ([id number]), production editor LO MCQUEEN ([id number]) on 12/12/2018 2:29:10 PM Referred By: CAROLYN Confirmed By:MCKENZIE SEWELL
--- NOTE | 2018-12-09 09:41 | ED.VIS.GEN ---
History of Present Illness Chief Complaint: Chest Pain Informant: Patient Onset: Days Narrative: Patient presents to the ED with primary complaint of nasal congestion, sinus pain, and chest burning. Prior to arrival, she was at the urgent care and sent here for her chest pain. She has a history of PA in August of this year that required cardiac stents. This pain feels somewhat similar to her PA, however she is not having any extremity numbness. She has been taking Mucinex when her symptoms started 4 days ago. He feels as though sputum is starting to drop down into her chest, however she is still having a dry, nonproductive cough. She states that nothing makes the chest pain better or worse. She also reports urinary frequency for the last several days saying that she is urinating every hour at night. She denies any dysuria, urgency, flank pain, fever, chills. Past Medical History - Allergies and Home Meds Allergies/Adverse Reactions: Allergies metoprolol Adverse Reaction (Severe, Verified 12/09/18 09:22) cough hydrocodone [From Vicodin] Adverse Reaction (Verified 12/09/18 09:22) Nausea Primary Care Physician: Fabian Smith MD [Primary Care Provider] - Surgical History: angioplasty - coronary stent, appendectomy, hysterectomy, - - Partial thyroidectomy. Initially she had a right oophorectomy; and later hysterectomy with left oophorectomy. Smoking Status: Former smoker - Family History Paternal Family History: Family History (Last Reviewed 10/25/18 @ 11:09 by Doreen Davis) Mother M?ni?re's disease Father Chronic kidney disease Congestive heart failure (CHF) Diabetes Family History: Reports: No pertinent history - No family history of colon cancer in first-degree family relative Review of Systems General: Denies: Chills, Fever, Sweats Eyes: Denies: Visual changes - bilaterally, Diplopia ENT: Reports: Rhinorrhea, - - Nasal congestion, sinus pain. Denies: Sore throat Cardiovascular: Reports: Chest pain. Denies: Palpitations Respiratory: Reports: Cough - Nonproductive. Denies: Dyspnea, Dyspnea on exertion Gastrointestinal: Denies: Abdominal pain, Nausea, Vomiting, Diarrhea, Melena, Hematochezia Genitourinary: Denies: Dysuria, Hematuria, Frequency Musculoskeletal: Denies: Back pain, Extremity Pain Skin: Denies: Rash, Wounds Neurological: Denies: Headache, Weakness, Numbness Physical Exam Vital Signs/Narrative: Vital Signs Temp Pulse Resp BP Pulse Ox 12/09/18 09:18 97 F L 69 16 145/82 H 100 General: Well nourished, Well developed, No Acute Distress Head: Normocephalic, Atraumatic Eyes: Perrl, EOMI ENT: Moist mucous membranes, Nasal congestion, Sinus tenderness Neck: Supple, Nontender, No lymphadenopathy Cardiovascular: Regular rate, Regular rhythm, No murmurs Respiratory: No distress, CTA bilaterally, Chest tenderness. Negative for: Rales, Rhonchi, Wheezing Abdomen: Soft, Nontender, Nondistended, Normal bowel sounds Back: Nontender, Normal Inspection Extremities: Nontender, No edema Skin: Normal color, No rash Neurological: Alert, Oriented x3, Cranial nerves II-XII grossly intact, Normal Strength, Normal Sensation Psychological: Normal affect, Normal Mood Diagnostic/Tx/Re-eval Chest X-Ray - ED: 2 View, Read by Radiologist, Heart, No Acute Disease - EKG Initial EKG Interpretation: Sinus Bradycardia, - - Ventricular rate 58 bpm. AR interval 196. QRS 88. QT 398. No STEMI. - Medical Decision Making Presents with URI symptoms and sensation of chest burning for the last several days. She is referred here from the urgent care given her history of PA in August of this year. She appears well nontoxic. Vital signs stable. EKG shows no ischemic changes. Work-up here is fairly unremarkable. Discussed the patient that at this time is viral. Prescriptions for Claritin-D and Flonase. She was instructed to follow-up with her PCP next week if symptoms persist or worsen. She is educated on signs/symptoms to return to ED. She is to discharge instructions. She is agreeable to plan. Impression: Viral upper respiratory infection. Frequency. Disposition: Home stable ED Disposition - Plan for ED Patient: Disposition: Home or Assisted Living Diagnosis: Upper respiratory infection Instructions: Acute Bronchitis Prescriptions: Loratadine/Pseudoephedrine [Claritin-D 12 Hour Tablet] 1 ea PO Q12H PRN PRN #20 tab.er.12h PRN Reason: Congestion Prescription Printed Fluticasone 0.05% [Flonase Nasal [place]] 1 spray NASAL DAILY #1 nasal.sry Prescription Printed Referrals: Fabian Smith MD [Primary Care Provider] -
--- NOTE | 2018-12-09 09:45 | RAD_ITS ---
STUDY: X-RAY CHEST REASON FOR EXAM: Female, 48 years old. Chest pains. TECHNIQUE: PA and lateral views of the chest. COMPARISON: Comparison is made with prior study dated August 24, 2018. FINDINGS: EKG electrodes are seen. The lungs are clear and expanded. Scattered calcified granulomas. There is no demonstrated pleural abnormality. Normal size heart. Normal mediastinum and dulce. Normal visualized pulmonary arteries. Normal visualized aortic arch and descending thoracic aorta. There are diffuse degenerative changes of the visualized thoracic spine. Normal visualized ribs, clavicles, and shoulders. There is no demonstrated abnormality of the visualized soft tissue structures of the upper abdomen. RAD/Chest PA and Lateral IMPRESSION: No acute abnormality is seen. Electronically Signed: Eligio Edwards, at 10:17 EDT , Service support ,
[2018-12-09 09:52] LABS: Absolute Lymphocyte Count 2.06 X10^3/uL (0.83-4.51); Absolute Neutrophil Count 5.7 X10^3/uL (2.0-7.7); Basophil# 0.04 X10^3/uL; Basophil% 0.5 % (0-1); Eosinophil# 0.11 X10^3/uL; Eosinophils% 1.2 % (0-5); Hematocrit 43.6 % (37-47); Hemoglobin 14.5 g/dL (12.0-15.0); Lymphocyte # 2.06 X10^3/ul (4.0); Lymphocyte % 23.3 % (19-41); Mean Corp Hgb Conc 33.3 g/dL (32-36); Mean Corpuscular Hgb 31.7 pg (27.0-32.0); Mean Corpuscular Volume 95.2 fL (81-99); Mean Platelet Vol. 10.8 fl (6.2-12.0); Monocyte# 0.86 X10^3/uL; Monocyte% 9.7 % (0-10); NRBC Flagged by Analyzer 0 % (0-5); Neutrophil # 5.74 X10^3/uL (2.7-7.7); Neutrophil % 64.8 % (47-70); Platelet Count 322 K/mm3 (150-450); RBC Distribution Width SD 45.4 fl (35.1-43.9); Red Blood Count 4.58 M/mm3 (4.2-5.4); White Blood Count 8.9 K/mm3 (4.4-11.0)
[2018-12-09 10:04] LABS: Anion Gap 6 (5-15); BUN 13 mg/dL (7-18); BUN/Creat Ratio 17.9 RATIO (10-20); Calcium,Total 8.8 mg/dL (8.5-10.1); Chloride 109 mmol/L (98-107); Creatinine, Serum 0.72 mg/dL (0.55-1.02); EST Glomerular Filtration Rate 91 mL/min (>60); Est Glom Filt Rate - Afr Amer 110 mL/min (>60); Estimated Creatinine Clearance 79.04 ml/min; Glucose 189 mg/dL (74-106); Potassium 3.8 mmol/L (3.5-5.1); Sodium Level 143 mmol/L (136-145)
[2018-12-09 10:08] VITALS: O2SAT 98
[2018-12-09 10:22] LABS: Red Blood Cells-Urine 0 SEEN /hpf (0-5); White Blood Cells 0 SEEN /hpf (0-5)
[2018-12-09 10:25] LABS: Color, Urine Yellow (Yellow); Glucose, Dipstick 100 mg/dl (Normal); Ketone-Dipstick Negative (Negative); Leukocyte Esterase-Dipstick Negative /ul (Negative); Nitrite-Dipstick Negative (Negative); Occult Blood-Urine 10 /ul (Negative); Protein-Dipstick Negative (Negative); Urine Bilirubin Dipstick Negative (Negative); Urine Clarity Clear (Clear); Urine Urobilinogen Normal (Normal)
[2018-12-09 10:31] VITALS: BP 110/77; PULSE 68; O2SAT 99
[2018-12-09 10:33] LABS: Bacteria RARE /hpf (None Seen); Mucous, Urine RARE /hpf (<or=2+); Squamous Epithelial Cells - UA 0-5 SEEN /hpf (5-10)
[2018-12-09 11:19] VITALS: BP 108/68; PULSE 21; RESP 20; O2SAT 96
== END 2018-12-09 11:31 | disposition home or self-care (01) ==
PROVIDERS: Emergency Provider Physician Assistant; Family Provider Family Medicine; PCP Family Medicine
DX: J06.9 Acute upper respiratory infection, unspecified (principal); R07.9 Chest pain, unspecified; I25.2 Old myocardial infarction; Z95.5 Presence of coronary angioplasty implant and graft; Z87.891 Personal history of nicotine dependence; Z79.82 Long term (current) use of aspirin
CPT/HCPCS: 71046; 80048; 81001; 84484; 85025; 93005; 99284

== ENCOUNTER → 2018-12-23 | Outpatient (CLI) | payer BC, SELFPAY ==
[2018-12-16 13:06] VITALS: BMI 37.3
--- NOTE | 2018-12-23 11:01 | ART_ITS ---
Reason For Study: Claudication Procedure A bilateral lower extremity continuous wave Doppler with analog waveform analysis,segmental pressures,and ankle brachial indexes without exercise. Left Segmental Pressures Left brachial= 114mmHg. Left posterior tibial artery = 137mmHg. Left dorsalis pedis artery = 138mmHg. Left digit = 110 mmHg. The left dorsalis pedis waveforms are triphasic. The left posterior tibial artery waveforms are triphasic. Right Segmental Pressures Right brachial= 113mmHg. Right posterior tibial artery = 128mmHg. Right dorsalis pedis artery = 111mmHg. Right digit = 101 mmHg. The right dorsalis pedis waveforms are triphasic. The right posterior tibial artery waveforms are triphasic. Indices The right ankle brachial index by the dorsalis pedis is 0.97. The right ankle brachial index by the posterior tibial artery is 1.12. The right digital-brachial index is 0.89. The left ankle brachial index by the dorsalis pedis is 1.21. The left ankle brachial index by the posterior tibial artery is 1.20. The left digital-brachial index is 0.96. Interpretation Summary Resting ankle-brachial indices appear bilaterally normal. Resting digital-brachial indices appear bilaterally normal. Ordering Physician: Luis Arroyo Referring Physician: MD Luis Fabian Performed By: Malia Mcgowan RVT
== END | disposition home or self-care (01) ==
LOC: CVS 11:00
PROVIDERS: Family Provider Family Medicine; PCP Family Medicine; Referring Provider Nurse Practitioner Family; Visit Provider Nurse Practitioner Family
DX: I73.9 Peripheral vascular disease, unspecified (principal); E78.5 Hyperlipidemia, unspecified; I25.10 Atherosclerotic heart disease of native coronary artery without angina pectoris; Z95.5 Presence of coronary angioplasty implant and graft
CPT/HCPCS: 93923

== ENCOUNTER 2021-04-18 16:01 | Outpatient (CLI) | payer BC, SELFPAY ==
[2021-04-18 17:31] LABS: Absolute Lymphocyte Count 3.43 X10^3/uL (0.83-4.51); Absolute Neutrophil Count 5.3 X10^3/uL (2.0-7.7); Basophil# 0.05 X10^3/uL; Basophil% 0.5 % (0-1); Eosinophil# 0.12 X10^3/uL; Eosinophils% 1.2 % (0-5); Hematocrit 42.8 % (37-47); Hemoglobin 14.2 g/dL (12.0-15.0); Lymphocyte # 3.43 X10^3/ul (0.83-4.51); Mean Corp Hgb Conc 33.2 g/dL (32-36); Mean Corpuscular Hgb 30.6 pg (27.0-32.0); Mean Corpuscular Volume 92.2 fL (81-99); Mean Platelet Vol. 11.4 fl (6.2-12.0); Monocyte# 0.79 X10^3/uL; Monocyte% 8.1 % (0-10); NRBC Flagged by Analyzer 0 % (0-5); Neutrophil # 5.34 X10^3/uL (2.7-7.7); Neutrophil % 54.6 % (47-70); Platelet Count 363 K/mm3 (150-450); RBC Distribution Width CV 12.8 % (11.6-14.6); RBC Distribution Width SD 43.4 fl (35.1-43.9); Red Blood Count 4.64 M/mm3 (4.2-5.4); White Blood Count 9.8 K/mm3 (4.4-11.0)
[2021-04-18 17:43] LABS: ALB/GLOB Ratio 0.9 RATIO (0.9-2.4); AST(SGOT) 28 U/L (15-37); Alanine Aminotransfer ALT/SGPT 75 U/L (13-56); Albumin, Serum 3.7 g/dL (3.2-5.0); Alkaline Phosphatase 89 U/L (45-117); Anion Gap 7 (5-15); BUN 15 mg/dL (7-18); BUN/Creat Ratio 21.8 RATIO (10-20); Calcium,Total 9.6 mg/dL (8.5-10.1); Chloride 104 mmol/L (98-107); Creatinine, Serum 0.69 mg/dL (0.55-1.02); EST Glomerular Filtration Rate 96 mL/min (>60); Est Glom Filt Rate - Afr Amer 116 mL/min (>60); Globulin 4.1 g/dL (2.2-4.2); Glucose 186 mg/dL (74-106); Potassium 3.9 mmol/L (3.5-5.1); Protein, Total 7.8 g/dL (6.4-8.2); Sodium Level 139 mmol/L (136-145)
[2021-04-21 08:47] LABS: Hepatitis B Surface Antibody Non-Reactive
[2021-04-22 04:07] LABS: HEPATITIS B SURFACE AG Negative (Negative); Hepatitis A IgM Antibody Negative (Negative); Hepatitis B Core AB IgM Negative (Negative); QNTFERON TB Mitogen Value > 10.00 IU/mL (.); QNTFERON TB Nil Value 0.09 IU/mL (.); QNTFERON TB1+ Ag Value 0.06 IU/mL (.); QNTFERON TB2+ Ag Value 0.09 IU/mL (.)
[2021-04-22 17:05] LABS: Hep C Antibodies <0.1 s/co ratio (0.0-0.9); Hepatitis A AB, Total Negative (Negative); QNTIFERON TB Positive Criteria Negative (Negative)
== END 2021-04-18 23:59 | disposition short-term general hospital (02) ==
LOC: MTLAB 16:02
PROVIDERS: PCP Family Medicine; Referring Provider Physician Assistant Medical; Visit Provider Physician Assistant Medical
DX: L40.1 Generalized pustular psoriasis (principal); Z79.899 Other long term (current) drug therapy
CPT/HCPCS: 36415; 80053; 80074; 85025; 86480; 86706; 86708

== ENCOUNTER 2021-08-23 17:56 | Emergency (ER) | payer BC, SELFPAY ==
[2021-08-23 17:58] VITALS: BP 144/85; PULSE 81; RESP 16; TEMP 36.8; O2SAT 98; BMI 37.9
--- NOTE | 2021-08-23 18:32 | EX.ED.UPPERE ---
HPI History of Present Illness HPI Narrative: Patient presents with redness and swelling to the left shoulder area that has been getting worse over the last 5 days. Patient received a tetanus booster recently and developed redness and swelling around the injection site. Patient denies any fevers or chills. Patient was started on Keflex. Patient was instructed to come to the ER if the redness and swelling are not improved after taking the Keflex for a couple days. Patient describes her pain as a burning sensation and pins and needle sensation. Chief Complaint: Wound Informant: patient Onset/Context/Timing Onset: Days (5) Context: Gradual Onset Timing: Continuous Quality of Pain: Burning Location: Left deltoid Worsened by: Nothing Relieved by: Nothing Associated Symptoms Associated Symptoms: Negative for Parasthesia and Weakness Narrative Tetanus Immunization: <5 years [facility] Medical History (Updated 08/23/21 @ 20:[address] Andrew Bardales, DO) Abnormal cardiac enzyme level Angina pectoris Atherosclerotic heart disease of [place] coronary artery without angina pectoris CAD (coronary artery disease) Chest pain Emphysema of lung History of GI bleed HLD (hyperlipidemia) Hypothyroidism Lower GI bleed Lung nodule MAIRA (obstructive sleep apnea) Pancolitis Prediabetes Presence of stent in coronary artery (~08/22/18) S/P coronary artery stent placement (~08/22/18) Type 2 diabetes mellitus Home Medications aspirin 81 mg PO DAILY@0800 #30 tab.chew 08/23/18 [Rx Last Taken Unknown] glipizide 2.5 mg PO DAILY #30 tab 08/23/18 [Rx Last Taken Unknown] buspirone 5 mg tablet 10 mg PO TID tab 09/16/18 [History Last Taken Unknown] blood pressure test kit-large #1 ea 09/29/18 [Rx Last Taken Unknown] levothyroxine 125 mcg tablet 125 mcg PO DAILY 07/26/19 [History Last Taken Unknown] pantoprazole 40 mg tablet,delayed release 40 mg PO DAILY 07/26/19 [History Last Taken Unknown] nitroglycerin 0.4 mg sublingual tablet 0.4 mg SUBLINGUAL Q5-15M PRN #25 tab 12/06/19 [Rx Last Taken Unknown] ropinirole 0.25 mg tablet 0.25 mg PO QHS 12/06/19 [History Last Taken Unknown] atenolol 50 mg tablet 50 mg PO DAILY #30 tab 12/10/20 [Rx Last Taken Unknown] atorvastatin 80 mg tablet 80 mg PO QHS #30 tab 12/10/20 [Rx Last Taken Unknown] clopidogrel 75 mg tablet 75 mg PO DAILY #30 tab 12/10/20 [Rx Last Taken Unknown] amoxicillin-pot clavulanate 875 mg PO Q12H #20 tablet 08/23/21 [Rx Last Taken Unknown] clobetasol [Temovate] 1 applic TOPICAL BID 08/23/21 [History Last Taken Unknown] famotidine 20 mg PO QHS 08/23/21 [History Last Taken Unknown] meclizine 25 mg PO Q6H PRN PRN 08/23/21 [History Last Taken Unknown] paroxetine HCl 10 mg PO DAILY 08/23/21 [History Last Taken Unknown] risankizumab-rzaa [Skyrizi] mg SUBCUT 08/23/21 [History Last Taken 08/01/21] sulfamethoxazole-trimethoprim 1 tab PO BID #20 tablet 08/23/21 [Rx Last Taken Unknown] Allergy/AdvReac Type Severity Reaction Status Date / Time metoprolol AdvReac Severe cough Verified 08/23/21 17:57 hydrocodone [From Vicodin] AdvReac Nausea Verified 08/23/21 17:57 Family History Mother M?ni?re's disease Father Chronic kidney disease Congestive heart failure (CHF) Diabetes Brother atrial fibrillation Valvular heart disease Sister atrial fibrillation Valvular heart disease Surgical History History of appendectomy History of bilateral oophorectomies History of hysterectomy Presence of coronary angioplasty implant and graft (~08/22/18) S/P partial thyroidectomy Social History Smoking Status: Former smoker Tobacco: How many years used: 32 alcohol intake: never substance use type: does not use caffeine: No ROS ROS ED Constitutional Constitutional ED: Denies chills or fever(s) Eyes Eyes: Denies blurry vision or change in vision ENT ENT ED: Denies rhinorrhea or sore throat Cardiovascular Cardiovascular: Denies chest pain or palpitations Respiratory/Chest Respiratory/Chest: Denies cough or dyspnea Gastrointestinal Gastrointestinal: Denies nausea or vomiting Genitourinary Genitourinary ED: Denies dysuria or hematuria Musculoskeletal Musculoskeletal: Denies back pain or neck pain Integumentary Denies abscess or rash Neurologic Neurologic: Denies headache(s) or weakness Allergic/Immunologic Allergic/Immunologic ED: Denies mouth swelling or urticaria EXAM Physical Exam Const Vital Signs: 08/23/21 17:58 Temperature 98.2 F Temperature Source Temporal Pulse Rate 81 Respiratory Rate 16 Blood Pressure 144/85 H Blood Pressure Mean 104 Pulse Ox 98 Oxygen Delivery Method Room Air Positive well nourished, well developed and obese General Appearance ED: well developed and NAD Nutritional Appearance: obese HEENT Reports moist mucous membranes Neck full ROM Extremity Extremity Narrative: There is mild tenderness, erythema, and warmth over the left deltoid area. There is no fluctuance. There is no discharge or drainage. There is no evidence of any abscess. Neuro oriented x3, CN's II-XII intact bilaterally, moves all extremities, no focal motor deficits and no sensory deficits noted Sensorium / Orientation: alert Psych mental status grossly normal MDM MDM MDM Narrative Medical decision making narrative: Patient was given a dose of Unasyn here. CBC and basic metabolic profile were within normal limits. Patient was instructed to stop taking her Keflex. Patient was given a prescription for Augmentin and Bactrim to broaden her coverage. Patient was instructed to follow-up with her primary care physician in 3 to 5 days. Patient understood and was agreeable with the plan. All questions were answered Lab Data Attestation: I reviewed the patient's lab results. Discharge Plan Triage Chief Complaint: Wound ED Provider: Andrew Bardales Dx/Rx/DC Orders Clinical Impression: Cellulitis of left upper arm Instructions: ED Cellulitis Prescriptions: New sulfamethoxazole-trimethoprim [sulfamethoxazole-trimethoprim] 1 TABLET tablet 1 tab PO BID Qty: 20 RF: 0 amoxicillin-pot clavulanate [amoxicillin-pot clavulanate] 875 MG tablet 875 mg PO Q12H Qty: 20 RF: 0 Discontinued cephalexin 500 mg capsule 500 mg PO Q6H RF: 0 No Action levothyroxine 125 mcg tablet 125 mcg PO DAILY RF: 0 pantoprazole 40 mg tablet,delayed release (DR/EC) 40 mg PO DAILY RF: 0 ropinirole 0.25 mg tablet 0.25 mg PO QHS RF: 0 nitroglycerin 0.4 mg tablet, sublingual 0.4 mg SUBLINGUAL Q5-15M PRN (Reason: chest pain) Qty: 25 RF: 3 aspirin 81 MG tablet,chewable 81 mg PO DAILY@0800 Qty: 30 RF: 0 glipizide 5 MG tablet 2.5 mg PO DAILY Qty: 30 RF: 0 buspirone 5 mg tablet 10 mg PO TID RF: 0 paroxetine HCl 10 mg Tablet 10 mg PO DAILY RF: 0 clobetasol [Temovate] 0.05 % Cream 1 applic TOPICAL BID RF: 0 famotidine 20 mg Tablet 20 mg PO QHS RF: 0 meclizine 25 mg Tablet 25 mg PO Q6H PRN PRN (Reason: Dizziness) RF: 0 Skyrizi 150mg/1.66mL(75 mg/0.83 mL x2) Syringe Kit SUBCUT RF: 0 (DME) blood pressure test kit-large [Quick Response BP Monitor-Larg] kit See Rx Instructions .ROUTE .MEDSUPPLY Qty: 1 RF: 0 atorvastatin 80 mg tablet 80 mg PO QHS Qty: 30 RF: 11 clopidogrel 75 mg tablet 75 mg PO DAILY Qty: 30 RF: 11 atenolol 50 mg tablet 50 mg PO DAILY Qty: 30 RF: 11 Primary Care Provider: Fabian Smith Referrals: Fabian Smith MD [Primary Care Provider] - 3-5 Days Disposition Disposition: Home, Self Care
[2021-08-23 18:59] LABS: Absolute Lymphocyte Count 3.67 X10^3/uL (0.83-4.51); Absolute Neutrophil Count 3.8 X10^3/uL (2.0-7.7); Basophil# 0.03 X10^3/uL; Basophil% 0.4 % (0-1); Eosinophil# 0.16 X10^3/uL; Eosinophils% 1.9 % (0-5); Hematocrit 41.2 % (37-47); Hemoglobin 13.9 g/dL (12.0-15.0); Lymphocyte # 3.67 X10^3/ul (0.83-4.51); Lymphocyte % 43.1 % (19-41); Mean Corp Hgb Conc 33.7 g/dL (32-36); Mean Corpuscular Hgb 30.9 pg (27.0-32.0); Mean Corpuscular Volume 91.6 fL (81-99); Mean Platelet Vol. 10.4 fl (6.2-12.0); Monocyte# 0.85 X10^3/uL; NRBC Flagged by Analyzer 0 % (0-5); Neutrophil # 3.79 X10^3/uL (2.7-7.7); Neutrophil % 44.4 % (47-70); POSITIVE MORPHOLOGY YES; Platelet Count 321 K/mm3 (150-450); RBC Distribution Width CV 12.4 % (11.6-14.6); RBC Distribution Width SD 41.9 fl (35.1-43.9); White Blood Count 8.5 K/mm3 (4.4-11.0)
[2021-08-23 19:00] LABS: Differential Indicated SCAN CRITERIA MET
[2021-08-23 19:17] LABS: Anion Gap 6 (5-15); BUN 9 mg/dL (7-18); BUN/Creat Ratio 14.5 RATIO (10-20); Calcium,Total 9.3 mg/dL (8.5-10.1); Chloride 106 mmol/L (98-107); Creatinine, Serum 0.62 mg/dL (0.55-1.02); EST Glomerular Filtration Rate 108 mL/min (>60); Est Glom Filt Rate - Afr Amer 131 mL/min (>60); Glucose 158 mg/dL (74-106); Potassium 3.5 mmol/L (3.5-5.1); Sodium Level 139 mmol/L (136-145)
[2021-08-23 19:20] LABS: Differential Comment SCANNED; Platelet Estimate ADEQUATE (ADEQ); Red Cell Morphology NORM C+C NORMAL (NORM C&C)
[2021-08-23 19:28] VITALS: BP 132/77; PULSE 74; RESP 17; TEMP 36.4; O2SAT 98
[2021-08-23 20:30] VITALS: BP 139/82; PULSE 65; RESP 16; O2SAT 100
== END 2021-08-23 20:40 | disposition home or self-care (01) ==
PROVIDERS: Emergency Provider Emergency Medicine; PCP Family Medicine; Visit Provider Emergency Medicine
DX: L03.114 Cellulitis of left upper limb (principal); E11.9 Type 2 diabetes mellitus without complications; Z87.891 Personal history of nicotine dependence; I25.10 Atherosclerotic heart disease of native coronary artery without angina pectoris; E78.5 Hyperlipidemia, unspecified; G47.33 Obstructive sleep apnea (adult) (pediatric); Z95.5 Presence of coronary angioplasty implant and graft; E03.9 Hypothyroidism, unspecified; E66.9 Obesity, unspecified
CPT/HCPCS: 80048; 85025; 96365; 96366; 99282; J7030; A4216; J0295

== ENCOUNTER → 2022-09-22 | Outpatient (CLI) | payer BC, SELFPAY ==
[2022-09-22 17:11] LABS: Absolute Lymphocyte Count 2.58 X10^3/uL (0.83-4.51); Absolute Neutrophil Count 4.1 X10^3/uL (2.0-7.7); Basophil# 0.05 X10^3/uL; Basophil% 0.7 % (0-1); Eosinophils% 1.3 % (0-5); Hematocrit 42.9 % (37-47); Hemoglobin 14.4 g/dL (12.0-15.0); Lymphocyte # 2.58 X10^3/ul (0.83-4.51); Lymphocyte % 34.3 % (19-41); Mean Corp Hgb Conc 33.6 g/dL (32-36); Mean Corpuscular Hgb 30.6 pg (27.0-32.0); Mean Corpuscular Volume 91.3 fL (81-99); Mean Platelet Vol. 11.2 fl (6.2-12.0); Monocyte# 0.64 X10^3/uL; Monocyte% 8.5 % (0-10); NRBC Flagged by Analyzer 0 % (0-5); Neutrophil # 4.11 X10^3/uL (2.7-7.7); Neutrophil % 54.7 % (47-70); Platelet Count 327 K/mm3 (150-450); RBC Distribution Width CV 12.6 % (11.6-14.6); RBC Distribution Width SD 41.6 fl (35.1-43.9); White Blood Count 7.5 K/mm3 (4.4-11.0)
[2022-09-22 18:03] LABS: Anion Gap 6 (5-15); BNP,B-Type NATRIURETIC PEPTIDE 10.6 pg/mL (0-100); BUN 10 mg/dL (7-18); BUN/Creat Ratio 13.7 RATIO (10-20); Calcium,Total 9.4 mg/dL (8.5-10.1); Chloride 106 mmol/L (98-107); Creatinine, Serum 0.73 mg/dL (0.55-1.02); EST Glomerular Filtration Rate 89 mL/min (>60); Est Glom Filt Rate - Afr Amer 108 mL/min (>60); Glucose 283 mg/dL (74-106); Potassium 3.8 mmol/L (3.5-5.1); Sodium Level 138 mmol/L (136-145)
== END | disposition home or self-care (01) ==
LOC: LAB 16:37
PROVIDERS: PCP Family Medicine; Referring Provider Nurse Practitioner Family; Visit Provider Nurse Practitioner Family
DX: E11.9 Type 2 diabetes mellitus without complications (principal); R06.09 Other forms of dyspnea; Z95.5 Presence of coronary angioplasty implant and graft
CPT/HCPCS: 36415; 80048; 83880; 85025

== ENCOUNTER → 2022-10-02 | Outpatient (CLI) | payer BC, SELFPAY ==
--- NOTE | 2022-10-02 17:22 | STRESSREP ---
Stress Test Report Pharmacologic myocardial perfusion stress test. 52-year-old lady with a history of chest pain Resting EKG demonstrates sinus rhythm with a rate of 70 bpm. Resting blood pressure is 132/80 mmHg. 0.4 mg of regadenoson was infused per usual protocol followed by rapid intravenous saline flush injection. Continuous EKG monitoring was performed. The maximum heart rate was 103 bpm which was 61% of max impacted heart rate the maximum workload was 1 metabolic equivalent. At rest there were no ST or T wave changes noted to suggest ischemia and at peak infusion nonspecific ST changes were noted which did not meet the criteria for ischemia. No clinical angina is noted. The final blood pressure was 128/80 mmHg. Myocardial perfusion protocol. 14.3 mCi of technetium 99m sestamibi was injected at rest. 0.4 mg of regadenoson was infused per usual protocol. At peak infusion 43.8 mCi of technetium 99m sestamibi was injected stress images were obtained stress and rest images were reconstructed and compared in the short axis vertical long and horizontal long axis. Gated images were also obtained. Perfusion SPECT analysis: Review of the stress images demonstrate normal uptake of tracer noted in all areas of the myocardium. There is GI attenuation artifact present. The resting images similar demonstrated normal uptake of tracer noted in all areas of the myocardium. No areas of reversibility are noted to suggest ischemia and no previous infarct is noted. Gated SPECT analysis: The gated ejection fraction is 74%. Conclusion: Normal pharmacologic myocardial perfusion stress test. Preserved ejection fraction.
== END | disposition home or self-care (01) ==
PROVIDERS: PCP Family Medicine; Referring Provider Nurse Practitioner Family; Visit Provider Nurse Practitioner Family
DX: R06.02 Shortness of breath (principal); E11.9 Type 2 diabetes mellitus without complications; R06.09 Other forms of dyspnea; I25.10 Atherosclerotic heart disease of native coronary artery without angina pectoris; E78.5 Hyperlipidemia, unspecified; Z95.5 Presence of coronary angioplasty implant and graft
CPT/HCPCS: 78452; 93017; A9500; A4216; J2785

== ENCOUNTER → 2022-10-20 | Outpatient (CLI) | payer BC, SELFPAY ==
[2022-10-22 13:08] LABS: Hepatitis B Core Ab Total Negative (Negative); QNTFERON TB Mitogen Value > 10.00 IU/mL (.); QNTFERON TB Nil Value 0.02 IU/mL (.); QNTFERON TB1+ Ag Value 0.02 IU/mL (.); QNTFERON TB2+ Ag Value 0.01 IU/mL (.); QNTIFERON TB Positive Criteria Negative (Negative)
== END | disposition home or self-care (01) ==
PROVIDERS: PCP Family Medicine; Referring Provider Physician Assistant Medical; Visit Provider Physician Assistant Medical
DX: L40.1 Generalized pustular psoriasis (principal); L40.8 Other psoriasis; L28.0 Lichen simplex chronicus; Z79.899 Other long term (current) drug therapy
CPT/HCPCS: 36415; 86480; 86704

== ENCOUNTER → 2024-01-12 | Outpatient (CLI) | payer BC, SELFPAY ==
[2024-01-17 10:07] LABS: QNTFERON TB Mitogen Value > 10.00 IU/mL (.); QNTFERON TB Nil Value 0.07 IU/mL (.); QNTFERON TB1+ Ag Value 0.08 IU/mL (.); QNTFERON TB2+ Ag Value 0.08 IU/mL (.); QNTIFERON TB Positive Criteria Negative (Negative)
== END | disposition home or self-care (01) ==
LOC: MTLAB 14:55
PROVIDERS: PCP Family Medicine; Referring Provider Physician Assistant; Visit Provider Physician Assistant
DX: L40.0 Psoriasis vulgaris (principal)
CPT/HCPCS: 36415; 86480